=== PATIENT | male | born 1975 | race Caucasian/White ===

== ENCOUNTER 2021-07-15 09:30 | Outpatient (REF) | payer OTHER, SELFPAY ==
[2021-07-15 10:18] LABS: Hematocrit 44.9 % (42.0-52.0); Hemoglobin 14.5 g/dl (14.0-18.0); Mean Corpuscular HGB Conc 32.3 g/dl (31.0-36.0); Mean Corpuscular Hemoglobin 27.6 pg (27.0-33.0); Mean Corpuscular Volume 85.4 fL (80.0-98.0); Mean Platelet Volume 10.2 fL (9.4-12.4); Platelet Count 305 X10*3/uL (160-400); Red Blood Count 5.26 X10*6/uL (4.60-5.80); Red Cell Distribution Width 13.2 % (11.0-16.0); White Blood Count 8.5 X10*3/uL (4.8-10.8)
[2021-07-15 10:34] LABS: Estimated Average Glucose 131 mg/dL; Hemoglobin A1c % 6.2 %
[2021-07-15 10:49] LABS: Alanine Aminotransferase 57 U/L (0-40); Albumin Level 4.6 g/dL (3.5-5.0); Alkaline Phosphatase 63 U/L (39-117); Anion Gap 13 (12-20); Aspartate Amino Transferase 27 U/L (5-37); Bilirubin Direct 0.2 mg/dL (0.0-0.5); Bilirubin Total 0.5 mg/dL (0.0-1.0); Blood Urea Nitrogen 9 mg/dL (9-16); Calcium 10.2 mg/dL (8.4-10.2); Carbon Dioxide 27 mmol/L (22-29); Chloride 105 mmol/L (96-108); Estimated Glomerular Filt Rate > 60; Glucose Random 107 mg/dL (60-115); Potassium 4.7 mmol/L (3.3-5.1); Sodium 140 mmol/L (135-145); Total Protein 7.6 g/dL (6.5-8.0)
[2021-07-15 11:01] LABS: Thyroid Stimulating Hormone 0.51 uIU/mL (0.32-4.0)
== END 2021-07-15 09:31 | disposition home or self-care (01) ==
LOC: HO.LAB 09:30
PROVIDERS: PCP Internal Medicine; Visit Provider Internal Medicine
DX: B36.0 Pityriasis versicolor (principal); E78.00 Pure hypercholesterolemia, unspecified
CPT/HCPCS: 36415; 80048; 80076; 83036; 84443; 85027

== ENCOUNTER 2021-12-07 09:44 | Outpatient (REF) | payer OTHER, SELFPAY ==
[2021-12-07 10:47] LABS: Cholesterol 250 mg/dL; HDL Cholesterol 59 mg/dL; LDL Cholesterol Calculated 175 mg/dl; Triglycerides 80 mg/dL
== END 2021-12-07 09:45 | disposition home or self-care (01) ==
LOC: HO.LAB 09:44
PROVIDERS: PCP Internal Medicine; Visit Provider Internal Medicine
DX: E78.00 Pure hypercholesterolemia, unspecified (principal); B36.0 Pityriasis versicolor; B35.1 Tinea unguium
CPT/HCPCS: 36415; 80061; 87101; 87102; 87220

== ENCOUNTER 2023-08-03 10:09 | Outpatient (AMB) | payer OTHER, SELFPAY ==
--- NOTE | 2023-08-03 10:49 | MHC.PC.OV ---
Vital Signs 08/03/23 10:51 Height 5 ft 4 in Weight 170 lb 6 oz BMI 29.2 BP 126/70 Blood Pressure Location Lt brachial Position Sitting Pulse 81 Pulse Source Pulse Oximeter Pulse Oximetry (%) 97 Oxygen Delivery Method Room Air Intake Visit Reasons: annual exam Intake Note: Patient is here today for a physical. Japanese Professor Required: No Superintendent Meters: Not Required per policy Accompanied by: Self / Same As Patient Allergies No Known Allergies Allergy (Verified 08/03/23 10:51) Tobacco use date assessed: 08/03/23 Dental Screening Dental Screen Date: 08/03/23 Did you have a dental visit in the last 12 months?: Yes Did you have a dental problem in the last 6 months where you did not have access to dental care?: No Was dental information given to patient?: Patient has dentist HPI annual exam HPI Details 47-year-old male presents to the office requesting an annual physical. He has requesting a screening colonoscopy. In addition, patient is complaining of vague chest discomfort. No palpitations. Not related to exercise. He has had 1 2 such episodes. Nonsmoker. [facility] Medical History Borderline hypercholesterolemia Tinea versicolor Male pattern baldness Surgical History No history of previous surgery Family History Mother No problems noted. Father No problems noted. Maternal Uncle Colon cancer Other Mental health disorder Substance use disorder Social History Housing: Apartment Alcohol intake: former Year quit: 3 y Patient Tobacco Use Status: Former Tobacco user e-Cigarette/Vaping Use: Former Use Second Hand Smoke Exposure: Yes service: No Current occupational status: employed Cognitive needs: No Hearing needs: No Vision needs: No Questionnaire PHQ-9 Over the last 2 weeks, how often have you been bothered by any of the following problems? 1. Little interest or pleasure in doing things: not at all 2. Feeling down, depressed, or hopeless: not at all 3. Trouble falling or staying asleep, or sleeping too much: not at all 4. Feeling tired or having little energy: not at all 5. Poor appetite or overeating: not at all 6. Feeling bad about yourself - or that you are a failure or have let yourself or your family down: not at all 7. Trouble concentrating on things, such as reading the newspaper or watching television: not at all 8. Moving or speaking so slowly that other people could have noticed. Or the opposite - being so fidgety or restless that you have been moving around a lot more than usual: not at all 9. Thoughts that you would be better off or of hurting yourself in some way: not at all Total score: 0 Depression Screening Interpretation: Negative Depression Screening Done: Yes Source: Developed by Drs. Michele Nj, Sandra Olson, Jarrett Rutherford and colleagues, with an educational katelynn from [employer]. Thrive Questionnaire Date Thrive assessed: 08/03/23 I am a: Patient What is your living situation today?: I have a steady place to live Within the past 12 months, did the food you bought not last and you didn't have the money to get more?: Never true Within the past 12 months, did you worry whether your food would run out before you got money to buy more?: Never true Do you have trouble paying for medicines?: No Do you have trouble getting transportation to medical appointments?: No Do you have trouble paying your heating and electricity bill?: No Do you have trouble taking care of your child, family member or friend?: No Do you have trouble with day-to-day activities such as bathing, preparing meals, shopping, managing finances, etc.?: No Are you currently unemployed and looking for a job?: No Are you interested in more education?: No Currently or been in a relationship where the following occur: no concerns reported THRIVE Score: 0 AUDIT C Alcohol Use Questionnaire (AUDIT-C) 1. How often do you have a drink containing alcohol?: Never Total Score: 0 THERESA-7 AMB Questionnaire THERESA-7 Date THERESA - 7 assessed: 08/03/23 Feeling nervous, anxious, or on edge: 0 = Not at all Not being able to stop or control worryin = Not at all Worrying too much about different things: 0 = Not at all Trouble relaxin = Not at all Being so restless that it is hard to sit still: 0 = Not at all Becoming easily annoyed or irritable: 0 = Not at all Feeling afraid as if something awful might happen: 0 = Not at all Total THERESA-7 score (0-4 normal; 5-9 mild; 10-14 moderate; 15-21 severe): 0 Source: Developed by Drs. Michele Nj, Sandra Olson, Jarrett Rutherford and colleagues, with an educational katelynn from [employer]. Physical exam (Primary Care) Vital Signs: Last Vital Signs Pulse 81 08/03/23 10:51 BP 126/70 08/03/23 10:51 Pulse Ox 97 08/03/23 10:51 Oxygen Delivery Method Room Air 08/03/23 10:51 Care Plan Goal for BP management: Blood pressure is in range. BMI result Body Mass Index 29.2 Tobacco/Smoking Status: Tobacco use Status Tobacco use date assessed 08/03/23 08/03/23 10:57 Patient Tobacco Use Status Former Tobacco user 08/03/23 10:57 e-Cigarette/Vaping Use Former Use 08/03/23 10:57 PHQ-9: PHQ-9 Score PHQ-9: Total score 0 08/03/23 14:51 Depression Screening Interpretation: Negative Thrive Assessment: Date of Thrive Assessment Date Thrive assessed 08/03/23 08/03/23 10:57 Currently or been in a relationship where the following occur: no concerns reported Const General: cooperative and healthy appearing Nutritional Appearance: well nourished Orientation/consciousness: patient oriented x3 Limitations: no limitations HENMT Head: Yes normal to inspection Eyes General: appearance normal, both eyes and all related structures Neck Neck: Yes normal visual inspection Chest Chest palpation & inspection: normal palpation of entire chest wall Resp Effort & Inspection: normal respiratory effort Neuro General: patient oriented x3 Office Procedures EKG Details: NSR [id number], Complete Assessment and Plan Assessment & Plan (1) Annual physical exam: Code(s): Z00.00 - Encounter for general adult medical examination without abnormal findings Plan: Blood work has been ordered. A screening colonoscopy has been ordered. Will call patient with the results. (2) Atypical chest pain: Code(s): R07.89 - Other chest pain Plan: EKG reviewed with patient. Unlikely of cardiac etiology. Orders: Orders Lipid Panel 08/03/23 R07.89 - Other chest pain, Z00.00 - Encounter for general adult medical examination without abnormal findings Testosterone, Free/Total 08/03/23 R07.89 - Other chest pain, Z00.00 - Encounter for general adult medical examination without abnormal findings AMB EKG-In Office 08/03/23 R07.9 - Chest pain, unspecified Basic Metabolic Panel 08/03/23 R07.89 - Other chest pain, Z00.00 - Encounter for general adult medical examination without abnormal findings Liver Panel 08/03/23 R07.89 - Other chest pain, Z00.00 - Encounter for general adult medical examination without abnormal findings UA and rflx microscopic 08/03/23 R07.89 - Other chest pain, Z00.00 - Encounter for general adult medical examination without abnormal findings Referrals Gastroenterology Referral Z12.11 - Encounter for screening for malignant neoplasm of colon Coding Level of Care Code Est Pt Level 3 (95206) Diagnoses Annual physical exam Z00.00 Atypical chest pain R07. CPT Codes EKG - CPT: 32706-[id number], Complete ([id number])
[2023-08-03 10:51] VITALS: BP 126/70; PULSE 81; O2SAT 97; BMI 29.2
== END 2023-08-03 11:49 | disposition home or self-care (01) ==
PROVIDERS: PCP Internal Medicine; Visit Provider Internal Medicine
DX: Z00.00 Encounter for general adult medical examination without abnormal findings (principal); R07.89 Other chest pain
CPT/HCPCS: 93000; 99213; 99396

== ENCOUNTER 2023-08-03 11:53 | Outpatient (REF) | payer OTHER, SELFPAY ==
[2023-08-03 13:14] LABS: Alanine Aminotransferase 86 U/L (0-40); Albumin Level 4.6 g/dL (3.5-5.0); Alkaline Phosphatase 56 U/L (39-117); Anion Gap 10 (12-20); Aspartate Amino Transferase 46 U/L (5-37); Bilirubin Direct 0.2 mg/dL (0.0-0.5); Bilirubin Total 0.7 mg/dL (0.0-1.0); Blood Urea Nitrogen 10 mg/dL (9-16); Calcium 9.5 mg/dL (8.4-10.2); Carbon Dioxide 28 mmol/L (22-29); Chloride 103 mmol/L (96-108); Cholesterol 243 mg/dL (<200); Estimated Glomerular Filt Rate > 60; Glucose Random 123 mg/dL (60-115); HDL Cholesterol 57 mg/dL (>40); LDL Cholesterol Calculated 166 mg/dL (<100); Potassium 3.8 mmol/L (3.3-5.1); Sodium 137 mmol/L (135-145); Total Protein 8.1 g/dL (6.5-8.0); Triglycerides 101 mg/dL (<150)
[2023-08-03 14:48] LABS: Appearance Urine Clear; Color Urine Yellow; Glucose Urine UA Negative (Negative); Leukocyte Esterase Urine Negative (Negative); Nitrite Urine Negative (Negative); Urine Blood Negative (Negative); Urine Ketones Negative (Negative); Urine Protein Negative (Neg-Trace)
[2023-08-17 15:18] LABS: Testosterone, Free 65.5 pg/mL (35.0-155.0); Testosterone, Total 458 ng/dL (250-1100)
== END 2023-08-03 11:54 | disposition home or self-care (01) ==
LOC: HO.LAB 11:53
PROVIDERS: PCP Internal Medicine; Visit Provider Internal Medicine
DX: Z00.00 Encounter for general adult medical examination without abnormal findings (principal); R07.89 Other chest pain
CPT/HCPCS: 36415; 80048; 80061; 80076; 81003; 84402; 84403

== ENCOUNTER 2023-11-29 09:51 | Outpatient (AMB) | payer OTHER, SELFPAY ==
[2023-11-29 09:56] VITALS: BP 122/84; PULSE 80; O2SAT 99; BMI 29.2
--- NOTE | 2023-11-29 09:56 | A.OFFVIS_ITS ---
Vital Signs 11/29/23 09:56 Height 5 ft 4 in Weight 170 lb 3.15 oz BMI 29.2 BP 122/84 Blood Pressure Location Rt brachial Position Sitting Pulse 80 Pulse Source Pulse Oximeter Pulse Oximetry (%) 99 Oxygen Delivery Method Room Air Intake Visit Reasons: Colonoscopy Screening Intake Note: Doc presents in office today for a scheduled colo consult. CC; Pt does have pertinent fmhx. Pt requested this colo based off of this. PCP recently ordered labs for this pt. This will be the pt's initial colo with routine priority. Pt reports that they have been experiencing new onset of GERD sx over the last ~4-5 mos. Pt also reports hx of diverticulosis. Pt reports that they had been taking atorvastatin as per their PCP, however; they recently stopped taking the medication as they heard that reflux can be a potential s/e. Pt has noticed that their sx have improved since the medication was dc'd. Pt reports family hx -- Uncle (Maternal). Shellfish Checker Required: No Allergies No Known Allergies Allergy (Verified 11/29/23 09:57) HPI HPI Colonoscopy Screening: Details: 48 year old? male here today for pre colonoscopy screening.? Patient was sent to us by his PCP.? This is his first colonoscopy screening.? Maternal uncle was diagnosed with colorectal cancer in his early 60s. Patient denies any gastrointestinal symptoms in the past or at present, however patient reports epigastric pain postprandially. ? Denies history of difficulty with sedation or anesthesia in the past.? Negative for history of sleep apnea.? Denies any history of cardiac, renal, pulmonary, or hepatic disease.?? No history of infectious? diseases like hepatitis A, B, C, HIV or tuberculosis.? Patient is not on any anticoagulation [facility] Medical History Borderline hypercholesterolemia Tinea versicolor Male pattern baldness Surgical History No history of previous surgery Family History Mother No problems noted. Father No problems noted. Maternal Uncle Colon cancer Other Mental health disorder Substance use disorder Social History Housing: Apartment Alcohol intake: former Year quit: 3 y Patient Tobacco Use Status: Former Tobacco user e-Cigarette/Vaping Use: Former Use Second Hand Smoke Exposure: Yes service: No Current occupational status: employed Cognitive needs: No Hearing needs: No Vision needs: No Review of Systems Const Denies weight gain and Denies weight loss ENT Reports no additional complaints, Denies dysphagia and Denies odynophagia Card Reports no additional complaints Resp Reports no additional complaints GI Denies abdominal pain, Denies belching, Denies melena, Denies bloating, Denies change in bowel habits, Denies dysphagia, Denies excessive flatus, Denies dyspepsia, Denies heartburn, Denies diarrhea, Denies loose stools, Denies nausea, Denies odynophagia and Denies vomiting Reports no additional complaints Musc Reports no additional complaints Neuro Reports no additional complaints Psych Reports no additional complaints Endo Reports no additional complaints Physical Exam Const General: healthy appearing, no acute distress and well developed Nutritional Appearance: well nourished Orientation/consciousness: patient oriented x3 Resp Effort & Inspection: normal respiratory effort, able to speak in complete sentences, no tracheal deviation and symmetric chest movement Auscultation: clear to auscultation bilaterally Cardio Rate: regular rate GI Inspection: Yes normal to inspection and No distended Palpation (GI): Soft to palpation, not firm, nontender and No hepatosplenomegaly present Auscultation: normal bowel sounds General: Yes no CVA tenderness Back/Spine/Pelvis Back: no CVA tenderness Skin General skin exam: elasticity normal, turgor normal and dry skin Neuro General: patient oriented x3 Psych Appearance: grossly normal Mental Status: mental status grossly normal Results Reviewed Results Reviewed: Laboratory Tests 08/03/23 12:18 Direct Bilirubin 0.2 AST 46 H ALT 86 H Assessment & Plan Assessment & Plan (1) Screen for colon cancer: Code(s): Z12.11 - Encounter for screening for malignant neoplasm of colon (2) GERD (gastroesophageal reflux disease): Code(s): K21.9 - Gastro-esophageal reflux disease without esophagitis Qualifiers: Esophagitis presence: esophagitis presence not specified Qualified Code(s): K21.9 - Gastro-esophageal reflux disease without esophagitis Plan Patient denies any cardiac or respiratory symptoms.? Denies any issues with anesthesia in the past.? Denies any history of sleep apnea.? No history infectious diseases in the past or present.? Not on any anticoagulation therapy.? Family history of CRC. Patient reports epigastric pain postprandially, currently not on any PPI. Will send him for upper endoscopy to rule out gastritis, esophagitis, duodenitis, gastric or peptic ulcers, Leblanc's, H pylori.? Patient denies melena, hematochezia, unintentional weight loss or ribbon like stools.? Discussed at length the pre-procedure,? prep, diet & medications as well as what to expect prior, during and after the procedure.?? Stressed the importance of good bowel prep.? Recommended the use of Vaseline or Calmoseptine OTC & baby wipes with bowel movements to promote comfort.? ?Patient verbalizes understanding and agrees to plan of care.? He was given the opportunity to ask questions and all questions answered.? We will see him after the procedure.? Medications: New polyethylene glycol 3350 (Miralax) As directed by gastroenterology department at [facility] 238 grams PO ONCE 238 grams 0RF Z12.11 - Encounter for screening for malignant neoplasm of colon bisacodyl (Dulcolax (bisacodyl)) take 4 tabs at noon the day before your colonoscopy 20 mg (4 x 5 mg) PO ONCE 1 day 4 tabs 0RF Z12.11 - Encounter for screening for malignant neoplasm of colon Coding Level of Care Code New Pt Level 3 (29676) Diagnoses Screen for colon cancer Z12.11 Gastroesophageal reflux disease, unspecified whether esophagitis present K21.9 Esophagitis presence: esophagitis presence not specified Time Spent (min) 40 Comment 30 minutes spent with patient and additional 10 minutes spent reviewing his records
== END 2023-11-29 10:34 | disposition home or self-care (01) ==
PROVIDERS: PCP Internal Medicine; Visit Provider Nurse Practitioner Family
DX: K21.9 Gastro-esophageal reflux disease without esophagitis (principal); Z12.11 Encounter for screening for malignant neoplasm of colon
CPT/HCPCS: 99203

== ENCOUNTER → 2023-11-29 09:51 | Outpatient (BNVA) | payer OTHER, SELFPAY | PROVIDERS: PCP Internal Medicine; Visit Provider Nurse Practitioner Family ==

== ENCOUNTER 2024-02-07 10:04 | Outpatient (AMB) | payer OTHER, SELFPAY ==
[2024-02-07 10:11] VITALS: BP 142/90; PULSE 77; O2SAT 99; BMI 28.0
--- NOTE | 2024-02-07 10:11 | A.OFFPC_ITS ---
Vital Signs 02/07/24 10:11 Height 5 ft 4 in Weight 163 lb BMI 28.0 BP 142/90 H Blood Pressure Location Lt brachial Position Sitting Pulse 77 Pulse Source Pulse Oximeter Pulse Oximetry (%) 99 Oxygen Delivery Method Room Air Intake Visit Reasons: 6mof\u Intake Note: Patient here for a 6 month follow up Unit Supervisor Required: No Accompanied by: Self / Same As Patient Allergies No Known Allergies Allergy (Verified 02/07/24 10:17) Medication List - Last Reconciled 02/07/24 by Casey Marroquin MD atorvastatin 10 mg PO BEDTIME bisacodyl (Dulcolax (bisacodyl)) 20 mg (4 x 5 mg) PO ONCE 1 day polyethylene glycol 3350 (Miralax) 238 grams PO ONCE Tobacco use date assessed: 08/03/23 Dental Screening Dental Screen Date: 08/03/23 [facility] Medical History (Updated 02/07/24 @ 10:35 by Casey Marroquin MD) GERD (gastroesophageal reflux disease) Borderline hypercholesterolemia Tinea versicolor Male pattern baldness Surgical History [place] teeth extracted No history of previous surgery Family History Mother No problems noted. Father No problems noted. Maternal Uncle Colon cancer Other Mental health disorder Substance use disorder Social History Housing: Apartment Alcohol intake: former Year quit: 3 y Patient Tobacco Use Status: Former Tobacco user e-Cigarette/Vaping Use: Former Use Second Hand Smoke Exposure: Yes service: No Current occupational status: employed Current occupational exposures/hazards: No Cognitive needs: No Hearing needs: No Vision needs: No Questionnaire Thrive Questionnaire Date Thrive assessed: 08/03/23 AUDIT C Alcohol Use Questionnaire (AUDIT-C) 3. How often do you have six or more drinks on one occasion?: Never Total Score: 0 THERESA-7 AMB Questionnaire THERESA-7 Date THERESA - 7 assessed: 08/03/23 Source: Developed by Drs. Michele Nj, Sandra Olson, Jarrett Rutherford and colleagues, with an educational katelynn from [employer]. Physical exam (Primary Care) Vital Signs: Last Vital Signs Pulse 77 02/07/24 10:11 BP 142/90 H 02/07/24 10:11 Pulse Ox 99 02/07/24 10:11 Oxygen Delivery Method Room Air 02/07/24 10:11 BMI result Body Mass Index 28.0 Tobacco/Smoking Status: Tobacco use Status Tobacco use date assessed 08/03/23 02/07/24 10:17 Patient Tobacco Use Status Former Tobacco user 02/07/24 10:17 e-Cigarette/Vaping Use Former Use 02/07/24 10:17 Thrive Assessment: Date of Thrive Assessment Date Thrive assessed 08/03/23 02/07/24 10:17 Office Procedures Flu Questionnaire Does the patient have a severe egg allergy?: No Does the patient have severe life threatening allergies?: No Does the patient have a fever or illness today?: No Has the patient ever had Guillain-[place] Syndrome?: No Has the patient ever had any past reaction to a flu shot?: No Immunizations Fluarix Triv 3503-3317 (PF) 45 mcg (15 mcg x 3)/0.5 mL IM syringe Performing Provider: Casey Marroquin MD [facility] Administered by: LOUISA Corrales on 02/07/24 10:36 Dose Route Admin Location Dispensed Lot Number Expiration Date [facility] Pot Annealer 0.5 mL IM Left Deltoid 0.5 mL [id number] 08/19/24 51276-726-20 [employer] VIS Given Date VIS Provided VIS Publication Date 02/07/24 Single Vaccine 20 Eligibility Eligibility Date Funding Source Not [facility] Eligible 02/07/24 Private Coding Level of Care Code Est Pt Level 4 (49745) Complex EM visit Add On G2211 Diagnoses Borderline hypercholesterolemia E78.00 Onychomycosis B35.1 GERD (gastroesophageal reflux disease) K21.9 Assessment & Plan Assessment & Plan (1) Borderline hypercholesterolemia: Code(s): E78.00 - Pure hypercholesterolemia, unspecified Category: Medical Plan: Restart statins. Rpt fasting bw in March 2023. (2) Onychomycosis: Code(s): B35.1 - Tinea unguium Category: Medical Plan: No obvious evidence. Patient reports rptd toenail infection and would like to see a superintendent police (3) GERD (gastroesophageal reflux disease): Code(s): K21.9 - Gastro-esophageal reflux disease without esophagitis Category: Medical Plan: Pantoprazole started. Keep the endoscopy appt Plan History of Present Illness The patient is a 48-year-old male presenting with gastrointestinal reflux symptoms. The patient reports a longstanding history of stomach problems with an increase in reflux symptoms recently. He is scheduled for a procedure in April 2024, which includes a colonoscopy and upper endoscopy. The patient has not been taking any medication specifically for the stomach and reports stopping his cholesterol medication after suspecting it contributed to reflux symptoms. His cholesterol levels and liver function have previously shown improvement with medication, but he experienced a return of high cholesterol levels since discontinuation. The patient's reflux symptoms have persisted, affecting his general well-being. Additionally, he reports toenail infections on both big toes, previously resulting in nail loss, with one toe showing signs of infection. Social History - Employment: Works long hours, including up to 16-hour shifts, at a [employer]. - Family: Parent of children aged 25, 17, and 16; plans a family trip to [place]. Expecting a child soon. - Lifestyle: Reports poor sleep habits and feeling overworked. Review of Systems - General: Reports feeling generally unwell. - Musculoskeletal: Reports toe infections. Physical Exam General: Cooperative and healthy appearing Nutritional Appearance: Well nourished Orientation/consciousness: Patient oriented x3 Limitations: No limitations Head: Normal to inspection General: Appearance normal, both eyes and all related structures Neck: Normal visual inspection Chest: Normal palpation of entire chest wall Respiratory: Normal respiratory effort Neurology: Patient oriented x3 Toe nails: Bilateral feet: Great toe on both feet shows some discoloration. No evidence of Paronychia. Results Plan - Restart atorvastatin for management of hyperlipidemia, and schedule repeat blood work in March to monitor cholesterol levels. - Prescribe pantoprazole for management of gastroesophageal reflux disease, with instructions to take once daily with food. - Referral to a superintendent police for evaluation and management of toenail infections. - Encourage improved sleep hygiene and work-life balance to potentially relieve stress-related symptoms. Patient was informed and verbally consented to the use of an ambient scribe for clinic note documentation during this visit. Discussion Notes During the visit, I discussed the patient's experience with reflux and the impact of discontinuing his cholesterol medication. I emphasized restarting the cholesterol medication and introduced pantoprazole to manage the reflux symptoms. I elaborated on the importance of monitoring cholesterol and liver function through upcoming blood work in March. We also reviewed the need for a superintendent police consultation to address ongoing nail infections, which have res ulted in significant toenail loss. I highlighted the importance of sleep and managing work-related stress to improve overall health. I acknowledged his upcoming family trip as a positive opportunity for relaxation. Follow-up consultations and management strategies were outlined. Patient Instructions - Take the prescribed omeprazole daily with food to alleviate stomach reflux symptoms. - Restart your cholesterol medication in the evening as directed. - Schedule and attend a superintendent police appointment for your toenail infections. - Obtain blood work in March to re-evaluate cholesterol levels. - Aim to improve sleep habits and balance work hours to promote better health. - Attend to symptoms or concerns promptly during your family trip if necessary.
== END 2024-02-07 10:31 | disposition home or self-care (01) ==
PROVIDERS: PCP Internal Medicine; Visit Provider Internal Medicine
DX: E78.00 Pure hypercholesterolemia, unspecified (principal); B35.1 Tinea unguium; K21.9 Gastro-esophageal reflux disease without esophagitis; Z23 Encounter for immunization

== ENCOUNTER → 2024-02-07 10:04 | Outpatient (BNVA) | payer OTHER, SELFPAY | PROVIDERS: PCP Internal Medicine; Visit Provider Internal Medicine | DX: E78.00 Pure hypercholesterolemia, unspecified (principal); B35.1 Tinea unguium; K21.9 Gastro-esophageal reflux disease without esophagitis; Z23 Encounter for immunization | CPT/HCPCS: 90471; 90656 ==

== ENCOUNTER 2024-02-08 09:07 | Outpatient (AMB) | payer OTHER, SELFPAY ==
--- NOTE | 2024-02-08 09:19 | AM.OFFVISNUR ---
Intake Visit Reasons: tdap Allergies No Known Allergies Allergy (Verified 02/07/24 10:17) Immunizations Boostrix Tdap 2.5 Lf unit-8 mcg-5 Lf/0.5 mL intramuscular syringe Performing Provider: Casey Marroquin MD [facility] Administered by: Pilar Rodriguez LPN on 02/08/24 09:19 Dose Route Admin Location Dispensed Lot Number Expiration Date [facility] Label Tacker 0.5 mL IM Right Deltoid 0.5 mL [id number] 03/16/26 [id number] Sign[employer]at VIS Given Date VIS Provided VIS Publication Date 02/08/24 Single Vaccine 20 Eligibility Eligibility Date Funding Source Not [facility] Eligible 02/08/24 Private Assessment & Plan Assessment & Plan Orders: Orders TDaP Immunization Today Z23 - Encounter for immunization Medications: New Boostrix Tdap (diphth,pertus(acell),tetanus) 0.5 mL IM ONCE 0.5 mL 0RF immunization due NS Z23 - Encounter for immunization
== END 2024-02-08 09:20 | disposition home or self-care (01) ==
PROVIDERS: PCP Internal Medicine; Visit Provider Internal Medicine
DX: Z23 Encounter for immunization (principal)

== ENCOUNTER → 2024-02-08 09:07 | Outpatient (BNVA) | payer OTHER, SELFPAY | PROVIDERS: PCP Internal Medicine; Visit Provider Internal Medicine | DX: Z23 Encounter for immunization (principal) | CPT/HCPCS: 90471; 90715 ==

== ENCOUNTER 2024-04-29 11:22 | Day surgery (SDC) | payer OTHER, SELFPAY ==
--- NOTE | 2024-04-26 13:12 | HO.ANESPROP2 ---
Documented by User: Mary Jane Da Silva NP 04/26/24 13:13 HPI - Anesthesia Eval Consult details Narrative: 48yo M for Colonoscopy PMFSH Active Problems Active Problems: All Active Problems GERD (gastroesophageal reflux disease) (Acute) Annual physical exam (Acute) Cystic acne vulgaris (Acute) Onychomycosis (Acute) Borderline hypercholesterolemia (Acute) Tinea versicolor (Acute) Male pattern baldness (Acute) Past Medical History Medical History GERD (gastroesophageal reflux disease) Borderline hypercholesterolemia Tinea versicolor Male pattern baldness Family History Family History Mother No problems noted. Father No problems noted. Maternal Uncle Colon cancer Other Mental health disorder Substance use disorder Surgical History Surgical History [place] teeth extracted Social History Social History Housing: Apartment Are you a primary home care specialist to a significant other at home: No Do you presently have visiting nurse or other home services: No Alcohol intake: former Year quit: 3 y Patient Tobacco Use Status: Current everyday Tobacco user Tobacco use type: Smokeless Tobacco e-Cigarette/Vaping Use: Former Use Second Hand Smoke Exposure: Yes Substance Use Frequency: Occasionally Have you been hit, kicked, punched, or otherwise hurt by someone within the past year? If so, by whom?: No Are you DNR?: No Advance Directives: No Advance Directives Information Provided: Yes Recently lost weight without trying: No Nutrition Risks: No Nutritional Risk Poor oral hygiene: No service: No Current occupational status: employed Current occupational exposures/hazards: No Cognitive needs: No Hearing needs: No Vision needs: No Meds Allergies Allergy/AdvReac Type Severity Reaction Status Date / Time No Known Allergies Allergy Verified 04/29/24 11:31 Assessment and Plan Assessment Anesthesia Assessment: Chart Reviewed Documented by User: Елена So MD 04/29/24 13:23 COUNT INCLUDES THE [facility] Past Medical History Medical History GERD (gastroesophageal reflux disease) Borderline hypercholesterolemia Tinea versicolor Male pattern baldness Family History Family History Mother No problems noted. Father No problems noted. Maternal Uncle Colon cancer Other Mental health disorder Substance use disorder Surgical History Surgical History [place] teeth extracted History of Problems with Anesthesia: No Social History Social History Housing: Apartment Are you a primary home care specialist to a significant other at home: No Do you presently have visiting nurse or other home services: No Alcohol intake: former Year quit: 3 y Patient Tobacco Use Status: Current everyday Tobacco user Tobacco use type: Smokeless Tobacco e-Cigarette/Vaping Use: Former Use Second Hand Smoke Exposure: Yes Substance Use Frequency: Occasionally Have you been hit, kicked, punched, or otherwise hurt by someone within the past year? If so, by whom?: No Are you DNR?: No Advance Directives: No Advance Directives Information Provided: Yes Recently lost weight without trying: No Nutrition Risks: No Nutritional Risk Poor oral hygiene: No service: No Current occupational status: employed Current occupational exposures/hazards: No Cognitive needs: No Hearing needs: No Vision needs: No Meds Allergies Allergy/AdvReac Type Severity Reaction Status Date / Time No Known Allergies Allergy Verified 04/29/24 11:31 Exam Airway Mallampati Class: II TM Dist: >3cm Neck ROM: Full Loose/Missing/Broken Teeth: No Heart: RRR Lungs: CTA Assessment and Plan Assessment Anesthesia Assessment: Anesthesia Plan Discussed Final Anesthetic Review History of Problems with Anesthesia: No NPO: Yes ASA Class: II Final Preanesthetic Review: Meds/Allgs Chart Reviewed, Consent Obtained/Reviewed and Anes Risks/Benef Reviewed Patient Risk: Low Procedure Risk: Low Anesthetic Plan Anesthetic Plan: MAC: Disposition: Standard PACU
--- OUTSIDE RECORDS SUMMARY | 2024-04-26 14:44 | XMS_ITS | Data Portability ---
Author Organization [facility], [address] Address [address] [place] [address] Assessment No assessment recorded. Plan of Treatment Reminders Order Date Submit Date Provider Last Modified By Organization Details Last Modified Time Details Appointments None recorded. Lab rapid SARS CoV 2 Ag, QL IA, respiratory specimen 2022 [email or web address] [place] [address], [address] [place] [address], [id number], 3 11:48:05 Referral None recorded. Procedures None recorded. Surgeries None recorded. Imaging None recorded. Medication Orders None recorded. Patient TargetsNo targets recorded. Patient Instructions Encounter Date Encounter Id Patient Instructions Last Modified By Organization Details Last Modified Time 03/29/2022 [id number] You have been Diagnosed with COVID - your Rapid COVID test was positive. I recommend the following to help with your symptoms of this viral infection: 1. Take Ibuprofen or Tylenol if you do not have any allergies to these medications. If you take a blood thinner you should not take NSAIDS like Ibuprofen. These medication will help with the inflammation in your respiratory tract which should help the cough. 2. I suggest taking a Antihistamine (loratadine or cetirizine or Constanza or benadryl) - to help with the congestion. I would advise this over a decongestant. 3. Saline Nasal [place] 4. Salt Water Gargles. I would be seen again immediately in the Emergency Room if you develop: 1. Shortness of Breath 2. Chest Pain 3. Fever > 101.0 4. Lethargy or Confusion. You should notify you PCP that you have been diagnosed with this infection. Below is the current CDC guidelines. Updated CDC Guidelines for Quarantine and Testing - 02/27/2021 If You Test Positive for COVID-19 (Isolate) Everyone, regardless of vaccination status. 1. Stay home for 5 days. 2. If you have no symptoms or your symptoms are resolving after 5 days, you can leave your house. 3. Continue to wear a mask around others for 5 additional days. If you have a fever or feel worse, continue to stay home until your fever resolves. If You Were Exposed to Someone with COVID-19 (Quarantine) If you: Have been boosted OR Completed the primary series of Pfizer or Moderna vaccine within the last 6 months. OR Completed the primary series of J&J vaccine within the last 2 months 1. Wear a mask around others for 10 days. 2. Test on day 5, if possible. 3. If you develop symptoms get a test and stay home. If you: Completed the primary series of Pfizer or Moderna vaccine over 6 months ago and are not boosted OR Completed the primary series of J&J over 2 months ago and are not boosted OR Are un-vaccinated 1. Stay home for 5 days. After that continue to wear a mask around others for 5 additional days. 2. Test on day 5, if possible. If you develop symptoms get a test and stay home Quarantine Calculation: Day 0: is the first day of symptoms or a positive viral test. Day 1: is the first full day after your symptoms developed or when your test specimen was collected. Exposure: Day 1: is the first full day after your last known contact with a person that tested positive for COVID 19. [facility] Thank you for visiting [facility] today, please feel free to call our office you have any questions or concerns. [email or web address] Not available 03/29/2022 11:48:00 Reason for Referral None Reported. Results Created Date Observation Date Name Description Value Unit Range Abnormal Flag Note LastModifiedBy Organization Detail LastModifiedTime Result Notes None recorded. Problems Name Problem SNOMED Code Status Onset Date Resolution Date Notes Provider Name and Address Organization Details Recorded Time Hyperlipidemia 41049982 Active 2022 [facility] 3 11:43:27 Asthma 538329471 Active 2022 [facility] 3 11:43:32 Problem Notes None recorded. Procedures Surgical History Date Name Laterality Status Provider Name and Address Organization Details Recorded Time extraction of wisdom tooth completed [facility] 03/29/2022 11:44:16 Imaging Results None recorded. Procedure Notes None recorded. Medical Equipment None Reported. Allergies No known drug allergies Medications Name Sig Start Date Stop Date Status Note LastModified by Organization Details LastModified Time doxycycline hyclate 100 mg capsule TAKE 1 CAPSULE BY MOUTH EVERY DAY active Not Available Not Available No t Available atorvastati n 10 mg tablet TAKE 1 TABLET BY MOUTH EVERY DAY AT BEDTIME active Not Available Not Available No t Available fluconazole 150 mg tablet TAKE 2 TABLETS BY MOUTH EVERY WEEK FOR 2 WEEKS 03/29 completed Not Available Not Available Not Available ketoconazol e 2 % topical cream APPLY TO AFFECTED AREA TWICE A DAY active Not Available Not Available No t Available finasteride 1 mg tablet TAKE 1 TABLET BY MOUTH EVERY DAY active Not Available Not Available No t Available Vitals Date Recorded Body height Body mass index (BMI) Body weight Pain severity - 0-10 verbal numeric rating [Score] - Reported Oxygen saturation Oxygen saturation in Arterial blood by Pulse oximetry Heart rate Respiratory rate Body temperature Systolic blood pressure Diastolic blood pressure Provider Name and Address Organization Details Last Updated DateTime 3 162.56 cm 26.6 kg/m2 34097.8 2 g 0 99 % 99 % 90 /min 18 /min 98.5 [degF] 127 mm[Hg] 82 mm[Hg] [facility] 3 11:42:24 Social History Question Answer Notes LastModified by Organizat ion Details LastModified Time Tobacco Smoking Status Former Smoker [facility] 03/29/2022 11:44:03 What Is Your Level Of Alcohol Consumption? None Information not available 03/29/2022 Do You Or Have You Ever Used E-cigarettes Or Vape? Current User Of Electronic Cigarettes Information not available 03/29/2022 Do You Use Any Illicit Or Recreational Drugs? No [email or web address] Information not available 03/29/2022 Have You Recently Traveled Abroad? No Information not available 03/29/2022 Do You Or Have You Ever Used Any Other Forms Of Tobacco Or Nicotine? Yes [email or web address] Information not available 03/29/2022 Sex: Unknown Functional Status None recorded. Mental Status None recorded. Family History Relationship Description Onset Age of this Age Resolved Age Notes LastModified by Organization Details LastModified Time Father No current problems or disability [email or web address] Not available 03/29 11:43:37 Mother No current problems or disability [email or web address] Not available 03/29 11:43:37 Medical History No medical history recorded. Past Encounters Encounter ID Performer Location Encounter Start Date Encounter Closed Date Diagnosis/Indication Diagnosis SNOMED-CT Code Diagnosis ICD10 Code Diagnosis Note [id number] [address] [place] [address] 04/29/2015 17:30:19 04/29/2015 18:43:52 [id number] [address] [place] [address] 03/21/2015 19:49:48 03/21/2015 20:06:19 [id number] [address] [place] [address] 07/06/2016 14:12:16 07/06/2016 15:18:51 [id number] REN[facility] MORENO [address] [place] [address] 03/29/2022 11:08:19 03/29/2022 11:59:32 COVID-19 097254382 U07.1 Health Concerns Section Related Observation LastModified by Organization Detai ls LastModified Time None Recorded Concern Status LastModified by Organization Details LastModified Time None Recorded Advance Directives Directive None Recorded Payers Encounter Date Sequence Insurance Name Policy Number Policy Grace Covered Member ID Grace Member ID Guarantor Name 07/06/2016 1 [employer] (POS) [id number] Doc Quintanilla [id number] 2 Doc Quintanilla 03/29/2022 1 [facility] [id number] [place] [id number] [place] Notes Date Note Type Note Provider Name and Address Organization Details Recorded Time 3 text/html Sore throatReported bypatient.Source of patient informationInformation obtained from patient; Patient arrived at Urgent Care ambulatory Location:throat Severity:moderate Quality:hurts to swallow Onset/Timin days Associated Symptoms:no sputum production; no shortness of breath; no wheezing; no vomiting; no nausea; No hoarseness;sore throat;coughing;sinus pain/ congestion Context:sick contactNotes:The patient reports felt something come on yesterday, but today woke up and felt worse. The patient reports that he did take a home covid test and it was positive. Here for evaluation. History of asthma but he said it never bothers him. He denies any sOB or CP. No history of COVID. Vaccinated. [facility] [place], [address], [place] - [facility] 03/29/2022 11:58:00
--- OUTSIDE RECORDS SUMMARY | 2024-04-26 14:44 | XMS_ITS | Continuity of Care Document ---
Author Organization [facility] Address [address] [place] [address] Phone Care Team Providers Care Photoengraving Supervisor Name Role Phone Archie Rosangela GARCIA Unavailable Unavailable Allergies, Adverse Reactions, Alerts Substance Reaction Status Criticality No Known Allergies Active No Inform ation Advance Directives Directive Yes / No Effective Date File Name No Information Encounters Encounter Description Practice Location Reason(s) For Visit Diagnoses Date Provider [facility], [address] [place] [address], [address] [place] [address] tel:[phone] [address] No Information 2019 Archie Adames. [address] [place] [address], [id number], . tel:[phone] [facility], [address] [place] [address], [address] [place] [address] tel:[phone] 2019 Archie Adames. [address] [place] [address], [id number], . tel:[phone] As per patient privacy policy some of the clinical information may not be visible. Family History Family Member Type Diagnosis Age At Onset No Information Payers Payer name Insurance type Covered libertarian ID Authoriza tion(s) [employer] PPO/AOP CI [id number] Social History Type Description Quantity Date Captured Comments Sex Male Smoking Status No Information Sexual Orientation Straight or heterosexual Gender Identity Male Chief Complaint And Reason For Visit No Information History Of Present Illness Encounter Date Complaint History Of Prese nt Illness No Information Instructions Date Instruction Additional Infor mation No Information Assessments Type Assessment Date No Information
[2024-04-29 11:57] VITALS: BMI 28.1
[2024-04-29] MEDS: Lactated Ringers 1,000 ML 100 ML IVCONT (12:03)
[2024-04-29 12:09] VITALS: BP 131/82; PULSE 99; RESP 18; TEMP 36.7; O2SAT 96
--- NOTE | 2024-04-29 13:36 | MHC.SHP ---
Pre-Procedural Eval Section A - 24 Hr Update-Section A only Date of Service: 04/29/24 The patient is an INPATIENT: No The patient has been examined within 24 hours of the surgical procedure. The History & Physical has been completed within 30 days and I have reviewed it.: No Section B - Complete if H&P > 30 days Chief Complaint: Colon cancer screening Relevant Family History (Specify if Yes): Yes Relevant Social History: Tobacco Use (Former smoker) Present Medications: see Short Stay Collaborative assessment Medical History: Significant History (Borderline hypercholesterolemia Tinea versicolor Male pattern baldness) History of Previous Operations: No relevant previous surgery Allergies: Allergies Allergy/AdvReac Type Severity Reaction Status Date / Time No Known Allergies Allergy Verified 04/29/24 11:31 Review of Systems Sugical H&P ROS: Negative: Constitution, Cardiovascular, Respiratory and Gastrointestinal Exam Surgical H&P Exam: Normal: Heart, Normal: Lungs, Normal: Extremities and Normal: Abdomen Plan Diagnosis/Plan: Unchanged I have reviewed the history and physical and performed a pertinent physical examination on my patient. No changes have occurred unless specified. Time Spent With Patient Time: Total time managing care of this patient today ____ minutes.
--- NOTE | 2024-04-29 13:43 | HO.OPN-COLON ---
Colonoscopy Operative Note Operative Note Date of Service: 04/29/24 Narrative: COLONOSCOPY TILL CECUM WITH BIOPSIES AND SNARE POLYPECTOMY Pre-op diagnosis: Colon cancer screening, intermittent rectal bleeding x 4 months. Maternal uncle was diagnosed with colorectal cancer in his early 60s. Post-op diagnosis:?Colon polyp , Diverticulosis, hemorrhoids Endoscopist:? Tish Robison MD Anesthesia:?MAC Consent: Indications for the procedure and potential complications of bleeding, perforation, reaction to medications and missed diagnosis were discussed with the patient and informed consent was obtained. Instrument: Olympus CF H 190 L variable stiffness adult colonoscope Monitoring: Vital signs and clinical assessment, intermittent blood pressure monitoring, continuous EKG monitoring, Pulse oximetry and Carbon Dioxide monitoring were done throughout the procedure. Please see anesthesia flowsheet. Colon withdrawl time was 18 minutes. Procedure: The patient was placed in the left lateral decubitis position and pre-procedure medications were administered. After a digital rectal examination of the ano-rectum, the video colonoscope was inserted into the rectum and advanced through the colon to the cecum. The colonoscope was slowly withdrawn in a retrograde panoramic fashion and the colon mucosa was carefully examined including a retroflexed view of the rectum. Findings and interventions are described below. Procedure Difficulty: without difficulty Findings: Terminal Ileum: Not evaluated Cecum: Normal Ascending Colon: Moderate diverticulosis throughout the entire colon Transverse Colon: Moderate diverticulosis throughout the entire colon Descending Colon: Moderate diverticulosis throughout the entire colon Sigmoid Colon: A 7-8 mm sessile polyp in the distal sigmoid colon - removed with a hot snare. A focal area of erythema, edema and aphthoid ulcers from 20 to 30 cms (in an area of severe diverticulosis) - multiple biopsies were obtained. Severe diverticulosis with luminal narrowing Rectum: Normal Ano-rectum: Moderate internal hemorrhoids Colon preparation: Good after copious irrigation. [place] Bowel Preparation Scale Right colon; 2 Transverse colon: 2 Left colon; 2 (0 = Unprepared colon segment with mucosa not seen due to solid stool that cannot be cleared. 1 = Portion of mucosa of the colon segment seen, but other areas of the colon segment not well seen due to staining, residual stool and/or opaque liquid. 2 = Minor amount of residual staining, small fragments of stool and/or opaque liquid, but mucosa of colon segment seen well. 3 = Entire mucosa of colon segment seen well with no residual staining, small fragments of stool or opaque liquid) Impression and Post Procedure Diagnosis: Colonoscopy Findings: One small polyp was removed Moderate to severe diverticulosis seen in the entire colon Moderate hemorrhoids on retroflexed exam. A focal area of erythema, edema and aphthoid ulcers from 20 to 30 cms (in an area of severe diverticulosis) - likely due to segmental colitis associated with diverticulosis (SCAD) versus IBD (less likely) Rectal bleeding likely from area of focal colitis Plan: Pt has a FU appointment on 05/13/24 with Darby Chase NP Repeat Colonoscopy in 5 years if polyps are adenomatous and due to family history of colon cancer. Above findings were reviewed with the patient and relevant handouts were given and the discharge area. Pt reports intermittent episodes of LLQ pain suggestive of recurrent diverticulitis. ADDENDUM: BIOPSIES SHOWED: A. Colon, sigmoid, biopsy: Active colitis with moderate activity and features of early evolving chronicity (see comment). B. Colon, sigmoid, polypectomy: Tubular adenoma; negative for high-grade dysplasia. COMMENT (A): No granulomas are identified. The differential diagnosis includes diverticular disease - associated segmental colitis (favored), infection, drug/medication effect and early idiopathic inflammatory bowel disease. Note is made of the patient's history of severe diverticulitis. Clinical correlation is advised Pt informed of biopsy results and prescribed Cirpofloxaxin and Metronidazole x 14 days for segmental colitis If pt continues to have rectal bleeding, consider further evaluation with CBC, CRP, IBD serologies and an Abd-Pelvic CT scan with IV and PO contrast to evaluate area of colitis. If CT scan shows persistent inflammation/pt remains symptomatic, he can be treated with mesalamine truck terminal manager. If he continues to have recurrent diverticulitis, he can be referred to surgery for a sigmoid colectomy Patient placed on the colonoscopy recall list for repeat colonoscopy in 5 years.
[2024-04-29 14:22] VITALS: BP 95/63; PULSE 79; RESP 16; TEMP 36.3; O2SAT 99
[2024-04-29 14:35] VITALS: BP 116/78; PULSE 82; RESP 16; O2SAT 100
== END 2024-04-29 15:06 | disposition home or self-care (01) ==
PROVIDERS: PCP Internal Medicine; Visit Provider Internal Medicine Gastroenterology
PROC: 0DJD8ZZ Inspection of Lower Intestinal Tract, Via Natural or Artificial Opening Endoscopic (ICD-10-PCS; CPT 45378; principal; 2024-04-29 13:50)
DX: K62.5 Hemorrhage of anus and rectum (principal); D12.5 Benign neoplasm of sigmoid colon; K57.30 Diverticulosis of large intestine without perforation or abscess without bleeding; K64.8 Other hemorrhoids; K51.20 Ulcerative (chronic) proctitis without complications; B36.0 Pityriasis versicolor; L64.9 Androgenic alopecia, unspecified; Z79.899 Other long term (current) drug therapy
CPT/HCPCS: 45385; 45380; 88305; J2704

== ENCOUNTER → 2024-04-29 11:22 | Outpatient (BNV) | payer OTHER, SELFPAY | PROVIDERS: PCP Internal Medicine; Visit Provider Internal Medicine Gastroenterology | DX: Z12.11 Encounter for screening for malignant neoplasm of colon (principal); Z80.0 Family history of malignant neoplasm of digestive organs; D12.5 Benign neoplasm of sigmoid colon; K62.5 Hemorrhage of anus and rectum; K57.90 Diverticulosis of intestine, part unspecified, without perforation or abscess without bleeding; K64.8 Other hemorrhoids | CPT/HCPCS: 45380; 45385 ==

== ENCOUNTER 2024-05-09 10:38 | Outpatient (REF) | payer OTHER, SELFPAY ==
[2024-05-09 11:55] LABS: Albumin Level 4.2 g/dL (3.5-5.0); Alkaline Phosphatase 59 U/L (39-117); Aspartate Amino Transferase 55 U/L (5-37); Bilirubin Direct 0.2 mg/dL (0.0-0.5); Bilirubin Total 0.4 mg/dL (0.0-1.0); Total Protein 7.5 g/dL (6.5-8.0)
[2024-05-09 12:11] LABS: Alanine Aminotransferase 111 U/L (0-40)
== END 2024-05-09 10:39 | disposition home or self-care (01) ==
LOC: HO.LAB 10:38
PROVIDERS: PCP Internal Medicine; Visit Provider Podiatrist
DX: B35.1 Tinea unguium (principal)
CPT/HCPCS: 36415; 80076

== ENCOUNTER 2024-05-13 12:40 | Outpatient (AMB) | payer OTHER, SELFPAY ==
[2024-05-13 12:46] VITALS: BP 136/94; PULSE 96; BMI 28.4
--- NOTE | 2024-05-13 12:46 | A.OFFVIS_ITS ---
Vital Signs 05/13/24 12:46 Height 5 ft 4 in Weight 165 lb 5.547 oz BMI 28.4 BP 136/94 H Blood Pressure Location Lt brachial Position Sitting Pulse 96 Intake Visit Reasons: s/p egd/colon Intake Note: Doc presents in the office as a follow up COLO. CC: He states he just had a COLO - he has not been feeling well. He is not sure if it is the antibiotics making him feel the way that he is. Instructional Services Specialist Required: No Allergies No Known Allergies Allergy (Verified 05/13/24 12:47) HPI HPI s/p egd/colon: Details: LAST VISIT: Screen for colon cancer GERD (gastroesophageal reflux disease) Plan Patient denies any cardiac or respiratory symptoms.? Denies any issues with anesthesia in the past.? Denies any history of sleep apnea.? No history infectious diseases in the past or present.? Not on any anticoagulation therapy.? Family history of CRC. Patient reports epigastric pain postprandially, currently not on any PPI. Will send him for upper endoscopy to rule out gastritis, esophagitis, duodenitis, gastric or peptic ulcers, Lelbanc's, H pylori.? Patient denies melena, hematochezia, unintentional weight loss or ribbon like stools.? Discussed at length the pre-procedure,? prep, diet & medications as well as what to expect prior, during and after the procedure.?? Stressed the importance of good bowel prep.? Recommended the use of Vaseline or Calmoseptine OTC & baby wipes with bowel movements to promote comfort.? ?Patient verbalizes understanding and agrees to plan of care.? He was given the opportunity to ask questions and all questions answered.? We will see him after the procedure.? Medications New polyethylene glycol 3350 (Miralax) As directed by gastroenterology department at [facility] 238 grams PO ONCE 238 grams 0RF Z12.11 bisacodyl (Dulcolax (bisacodyl)) take 4 tabs at noon the day before your colonoscopy 20 mg (4 x 5 mg) PO ONCE 1 day 4 tabs 0RF Z12.11 COLONOSCOPY Findings: Terminal Ileum: Not evaluated Cecum: Normal Ascending Colon: Moderate diverticulosis throughout the entire colon Transverse Colon: Moderate diverticulosis throughout the entire colon Descending Colon: Moderate diverticulosis throughout the entire colon Sigmoid Colon: A 7-8 mm sessile polyp in the distal sigmoid colon - removed with a hot snare. A focal area of erythema, edema and aphthoid ulcers from 20 to 30 cms (in an area of severe diverticulosis) - multiple biopsies were obtained. Severe diverticulosis with luminal narrowing Rectum: Normal Ano-rectum: Moderate internal hemorrhoids Colon preparation: Good after copious irrigation. [place] Bowel Preparation Scale Right colon; 2 Transverse colon: 2 Left colon; 2 (0 = Unprepared colon segment with mucosa not seen due to solid stool that cannot be cleared. 1 = Portion of mucosa of the colon segment seen, but other areas of the colon segment not well seen due to staining, residual stool and/or opaque liquid. 2 = Minor amount of residual staining, small fragments of stool and/or opaque liquid, but mucosa of colon segment seen well. 3 = Entire mucosa of colon segment seen well with no residual staining, small fragments of stool or opaque liquid) Impression and Post Procedure Diagnosis: Colonoscopy Findings: One small polyp was removed Moderate to severe diverticulosis seen in the entire colon Moderate hemorrhoids on retroflexed exam. A focal area of erythema, edema and aphthoid ulcers from 20 to 30 cms (in an area of severe diverticulosis) - likely due to segmental colitis associated with diverticulosis (SCAD) versus IBD (less likely) Rectal bleeding likely from area of focal colitis Plan: Pt has a FU appointment on 05/13/24 with Darby Chase NP Repeat Colonoscopy in 5 years if polyps are adenomatous and due to family history of colon cancer. Above findings were reviewed with the patient and relevant handouts were given and the discharge area. Pt reports intermittent episodes of LLQ pain suggestive of recurrent diverticulitis. ADDENDUM: BIOPSIES SHOWED: A. Colon, sigmoid, biopsy: Active colitis with moderate activity and features of early evolving chronicity (see comment). B. Colon, sigmoid, polypectomy: Tubular adenoma; negative for high-grade dysplasia. COMMENT (A): No granulomas are identified. The differential diagnosis includes diverticular disease - associated segmental colitis (favored), infection, drug/medication effect and early idiopathic inflammatory bowel disease. Note is made of the patient's history of severe diverticulitis. Clinical correlation is advised Pt informed of biopsy results and prescribed Cirpofloxaxin and Metronidazole x 14 days for segmental colitis If pt continues to have rectal bleeding, consider further evaluation with CBC, CRP, IBD serologies and an Abd-Pelvic CT scan with IV and PO contrast to evaluate area of colitis. If CT scan shows persistent inflammation/pt remains symptomatic, he can be treated with mesalamine intermediate teacher. If he continues to have recurrent diverticulitis, he can be referred to surgery for a sigmoid colectomy Patient placed on the colonoscopy recall list for repeat colonoscopy in 5 years. TODAY'S VISIT Patient is here today for follow-up and to discuss colonoscopy results. Patient denies any ill effects from the prep, anesthesia or procedure itself, however patient reports that he has been feeling crampy. Patient was placed on antibiotics Cipro and metronidazole. Active segmental colitis noted in sigmoid colon diverticular favored. Patient denies any mucus in his stools, no blood. Reports to have postprandial loose stools and cramping. One tubular adenoma found without high-grade dysplasia or carcinoma. Patient had diverticular disease throughout the whole colon worsened in sigmoid colon with significant luminal narrowing. Patient denies any dyspepsia, dysphagia or odynophagia. Family history of CRC [facility] Medical History (Updated 05/23/24 @ 18:04 by Betsy Chase, [facility]) Diverticulosis GERD (gastroesophageal reflux disease) Borderline hypercholesterolemia Tinea versicolor Male pattern baldness Surgical History History of colonoscopy with polypectomy (04/29/24) [place] teeth extracted Family History Mother No problems noted. Father No problems noted. Maternal Uncle Colon cancer Other Mental health disorder Substance use disorder Social History Housing: Apartment Are you a primary rental boats caretaker to a significant other at home: No Do you presently have visiting nurse or other home services: No Alcohol intake: former Year quit: 3 y Patient Tobacco Use Status: Current everyday Tobacco user Tobacco use type: Smokeless Tobacco e-Cigarette/Vaping Use: Former Use Second Hand Smoke Exposure: Yes service: No Current occupational status: employed Current occupational exposures/hazards: No Cognitive needs: No Hearing needs: No Vision needs: No Review of Systems Const Denies weight gain and Denies weight loss ENT Reports no additional complaints, Denies dysphagia and Denies odynophagia Card Reports no additional complaints Resp Reports no additional complaints GI Reports abdominal pain, Denies belching, Denies melena, Reports bloating, Denies change in bowel habits, Denies dysphagia, Denies excessive flatus, Denies dyspepsia, Denies heartburn, Denies diarrhea, Reports loose stools, Denies nausea, Denies odynophagia and Denies vomiting Reports no additional complaints Musc Reports no additional complaints Neuro Reports no additional complaints Psych Reports no additional complaints Endo Reports no additional complaints Physical Exam Vital Signs: Last Vital Signs Pulse 96 05/13/24 12:46 BP 136/94 H 05/13/24 12:46 BMI result Body Mass Index 28.4 Const General: healthy appearing, no acute distress and well developed Nutritional Appearance: well nourished Orientation/consciousness: patient oriented x3 Resp Effort & Inspection: normal respiratory effort, able to speak in complete sentences, no tracheal deviation and symmetric chest movement Auscultation: clear to auscultation bilaterally Cardio Rate: regular rate GI Inspection: Yes normal to inspection and No distended Palpation (GI): Soft to palpation, not firm, nontender and No hepatosplenomegaly present Auscultation: normal bowel sounds General: Yes no CVA tenderness Back/Spine/Pelvis Back: no CVA tenderness Skin General skin exam: elasticity normal, turgor normal and dry skin Neuro General: patient oriented x3 Psych Appearance: grossly normal Mental Status: mental status grossly normal Assessment & Plan Assessment & Plan (1) Segmental colitis associated with diverticulosis: Code(s): K50.10 - Crohn's disease of large intestine without complications; K57.30 - Diverticulosis of large intestine without perforation or abscess without bleeding Category: Medical (2) GERD (gastroesophageal reflux disease): Code(s): K21.9 - Gastro-esophageal reflux disease without esophagitis Category: Medical Qualifiers: Esophagitis presence: esophagitis presence not specified Qualified Code(s): K21.9 - Gastro-esophageal reflux disease without esophagitis (3) Diverticulosis: Code(s): K57.90 - Diverticulosis of intestine, part unspecified, without perforation or abscess without bleeding Category: Medical (4) Postprandial diarrhea: Code(s): K52.9 - Noninfective gastroenteritis and colitis, unspecified Plan Will check CRP, fecal calprotectin. Patient will be sent for CT of abdomen and pelvis to re-evaluate area of colitis within the diverticulum of the sigmoid colon. Pending results patient might need to go for surgical consult for possible colon resection if diverticulosis is very severe. There was a significant luminar narrowing seen in sigmoid colon with severe diverticulosis and ulceration. Patient will finishes antibiotics and may advance his diet. He should continue low fiber diet at this time till he has a CT scan. Patient was encouraged to increase fluid intake and activity to promote better bowel motility. Follow-up appointment will be made pending results. Patient is agreeable to this plan and verbalizes understanding of instructions. He was given the opportunity to ask questions and all questions answered. Thank you for allowing me to participate in his care Orders: Orders C Reactive Protein 05/13/24 K58.9 - Irritable bowel syndrome, unspecified Calprotectin, Fecal 05/14/24 R15.9 - Full incontinence of feces CT abdomen pelvis w IV con 05/13/24 R10.9 - Unspecified abdominal pain, K50.10 - Crohn's disease of large intestine without complications, K57.30 - Diverticulosis of large intestine without perforation or abscess without bleeding, R10.32 - Left lower quadrant pain Coding Level of Care Code Est Pt Level 4 (76245) Diagnoses Segmental colitis associated with diverticulosis K50.10; K57.30 Gastroesophageal reflux disease, unspecified whether esophagitis present K21.9 Esophagitis presence: esophagitis presence not specified Diverticulosis K57.90 Postprandial diarrhea K52.9 Time Spent (min) 40 Comment 25 minutes spent with patient and additional 15 minutes spent reviewing his records
== END 2024-05-13 13:21 | disposition home or self-care (01) ==
LOC: HO.HGI 12:40
PROVIDERS: PCP Internal Medicine; Visit Provider Nurse Practitioner Family
DX: K50.10 Crohn's disease of large intestine without complications (principal); K57.30 Diverticulosis of large intestine without perforation or abscess without bleeding; K21.9 Gastro-esophageal reflux disease without esophagitis; K57.90 Diverticulosis of intestine, part unspecified, without perforation or abscess without bleeding; K52.9 Noninfective gastroenteritis and colitis, unspecified
CPT/HCPCS: 99214

== ENCOUNTER 2024-05-13 12:40 | Outpatient (REF) | payer OTHER, SELFPAY ==
[2024-05-13 15:05] LABS: C Reactive Protein 0.12 mg/dL (< or = 0.50)
== END 2024-05-13 12:41 | disposition home or self-care (01) ==
LOC: HO.LAB 12:40
PROVIDERS: PCP Internal Medicine; Visit Provider Nurse Practitioner Family
DX: K58.9 Irritable bowel syndrome, unspecified (principal)
CPT/HCPCS: 36415; 86140

== ENCOUNTER 2024-05-24 09:27 | Outpatient (AMB) | payer OTHER, SELFPAY ==
[2024-05-24 09:29] VITALS: BP 136/94; PULSE 74; RESP 20; TEMP 36.3; O2SAT 97; BMI 28.5
--- NOTE | 2024-05-24 09:29 | MHC.PC.OV ---
Vital Signs 05/24/24 09:29 Height 5 ft 4 in Weight 166 lb BMI 28.5 BP 136/94 H Blood Pressure Location Lt brachial Position Sitting Respiration 20 Pulse 74 Pulse Source Pulse Oximeter Temp 97.3 F Temp Source Temporal Artery Scan Pulse Oximetry (%) 97 Oxygen Delivery Method Room Air Intake Visit Reasons: htn Hourly Shift Required: No Accompanied by: Self / Same As Patient Allergies No Known Allergies Allergy (Verified 05/24/24 09:51) Medication List - Last Reconciled 05/24/24 by Annalisa Live PA-C atorvastatin 10 mg PO BEDTIME pantoprazole 40 mg PO DAILY Tobacco use date assessed: 05/24/24 Dental Screening Dental Screen Date: 05/24/24 Did you have a dental visit in the last 12 months?: Yes Did you have a dental problem in the last 6 months where you did not have access to dental care?: No Was dental information given to patient?: Patient has dentist [facility] Medical History (Updated 05/24/24 @ 10:01 by Annalisa Live PA-C) Overweight with body mass index (BMI) of 28 to 28.9 in adult Depression Pure hypercholesterolemia, unspecified Hyperlipidemia LDL goal <100 Hypertension Diverticulosis GERD (gastroesophageal reflux disease) Borderline hypercholesterolemia Tinea versicolor Male pattern baldness Surgical History History of colonoscopy with polypectomy (04/29/24) [place] teeth extracted Family History Mother No problems noted. Father No problems noted. Maternal Uncle Colon cancer Other Mental health disorder Substance use disorder Social History Housing: Apartment Are you a primary animal caretaker supervisor to a significant other at home: No Do you presently have visiting nurse or other home services: No Alcohol intake: former Year quit: 3 y Patient Tobacco Use Status: Never used Tobacco e-Cigarette/Vaping Use: Currently Using Second Hand Smoke Exposure: Yes service: No Current occupational status: employed Current occupational exposures/hazards: No Cognitive needs: No Hearing needs: No Vision needs: No Questionnaire PHQ-9 Over the last 2 weeks, how often have you been bothered by any of the following problems? 1. Little interest or pleasure in doing things: nearly every day 2. Feeling down, depressed, or hopeless: more than half the days 3. Trouble falling or staying asleep, or sleeping too much: nearly every day 4. Feeling tired or having little energy: nearly every day 5. Poor appetite or overeating: more than half the days 6. Feeling bad about yourself - or that you are a failure or have let yourself or your family down: not at all 7. Trouble concentrating on things, such as reading the newspaper or watching television: several days 8. Moving or speaking so slowly that other people could have noticed. Or the opposite - being so fidgety or restless that you have been moving around a lot more than usual: not at all 9. Thoughts that you would be better off or of hurting yourself in some way: not at all Total score: 14 Depression Screening Interpretation: Positive Depression Screening Follow-up: Declines treatment Depression Screening Done: Yes 34710 - PHQ-9 Billing: Yes Source: Developed by Drs. Michele Nj, Sandra Olson, Jarrett Rutherford and colleagues, with an educational [email or web address] from [employer]. Thrive Questionnaire Date Thrive assessed: 05/24/24 I am a: Patient What is your living situation today?: I have a steady place to live Within the past 12 months, did the food you bought not last and you didn't have the money to get more?: Never true Within the past 12 months, did you worry whether your food would run out before you got money to buy more?: Never true Do you have trouble paying for medicines?: No Do you have trouble getting transportation to medical appointments?: No Do you have trouble paying your heating and electricity bill?: No Do you have trouble taking care of your child, family member or friend?: No Do you have trouble with day-to-day activities such as bathing, preparing meals, shopping, managing finances, etc.?: No Are you currently unemployed and looking for a job?: No Are you interested in more education?: No Please select the resources that you would like help with: None Currently or been in a relationship where the following occur: No concerns reported THRIVE Score: 0 AUDIT C Alcohol Use Questionnaire (AUDIT-C) 1. How often do you have a drink containing alcohol?: Never 3. How often do you have six or more drinks on one occasion?: Never Total Score: 0 Score Reviewed/Action Taken: No THERESA-7 AMB Questionnaire THERESA-7 Date THERESA - 7 assessed: 05/24/24 Feeling nervous, anxious, or on edge: 3 = Nearly every day Not being able to stop or control worryin = Not at all Worrying too much about different things: 3 = Nearly every day Trouble relaxin = Nearly every day Being so restless that it is hard to sit still: 0 = Not at all Becoming easily annoyed or irritable: 1 = Several days Feeling afraid as if something awful might happen: 0 = Not at all Total THERESA-7 score (0-4 normal; 5-9 mild; 10-14 moderate; 15-21 severe): 10 Source: Developed by Drs. Michele Nj, Sandra Olson, Jarrett Rutherford and colleagues, with an educational [email or web address] from [employer]. THERESA-7 Assessment Billing THERESA-7 Assessment Tool: THERESA-7 Assessment 85897 Physical exam (Primary Care) Vital Signs: Last Vital Signs Temp 97.3 F 05/24/24 09:29 Pulse 74 05/24/24 09:29 Resp 20 05/24/24 09:29 BP 136/94 H 05/24/24 09:29 Pulse Ox 97 05/24/24 09:29 Oxygen Delivery Method Room Air 05/24/24 09:29 Care Plan Goal for BP management: <130/80 patient will be started on lisinopril 10 mg daily BMI result Body Mass Index 28.5 BMI Assessment/Plan discussion: High BMI High, discussed plan: lifestyle, weight reduction, dietary, physical activity and alcohol moderation Tobacco/Smoking Status: Tobacco use Status Tobacco use date assessed 05/24/24 05/24/24 09:45 Patient Tobacco Use Status Never used Tobacco 05/24/24 09:45 Tobacco use type 05/24/24 09:45 e-Cigarette/Vaping Use Currently Using 05/24/24 09:45 PHQ-9: PHQ-9 Score PHQ-9: Total score 14 05/24/24 09:45 Depression Screening Interpretation: Positive Depression Screening Follow-up: Declines treatment Thrive Assessment: Date of Thrive Assessment Date Thrive assessed 05/24/24 05/24/24 09:45 Currently or been in a relationship where the following occur: No concerns reported Coding Level of Care Code Est Pt Level 4 (31874) Complex EM visit Add On G2211 Diagnoses Hypertension I10 Gastroesophageal reflux disease, unspecified whether esophagitis present K21.9 Esophagitis presence: esophagitis presence not specified Hyperlipidemia LDL goal <100 E78.5 Pure hypercholesterolemia, unspecified E78.00 Depression F32.A Overweight with body mass index (BMI) of 28 to 28.9 in adult E66.3; Z68.28 Additional Codes THERESA-7 Assessment Billing - THERESA-7 Assessment Tool: THERESA-7 Assessment 25702 ([id number]) PHQ-9 - 68565 - PHQ-9 Billing: Yes ([id number]) Assessment & Plan Assessment & Plan (1) Hypertension: Code(s): I10 - Essential (primary) hypertension Category: Medical Plan: I have prescribed lisinopril 10 mg daily for essential hypertension, with instructions for home blood pressure monitoring using an affordable cuff, to be measured two hours post-medication intake. Side effects such as cough were discussed, with a plan for reevaluation in one month to assess efficacy and side effects. (2) GERD (gastroesophageal reflux disease): Code(s): K21.9 - Gastro-esophageal reflux disease without esophagitis Category: Medical Qualifiers: Esophagitis presence: esophagitis presence not specified Qualified Code(s): K21.9 - Gastro-esophageal reflux disease without esophagitis Plan: The patient's GERD remains well-controlled on pantoprazole, with no reported issues necessitating alterations. He is instructed to maintain his current regimen. (3) Hyperlipidemia LDL goal <100: Code(s): E78.5 - Hyperlipidemia, unspecified Category: Medical Plan: The patient continues his treatment with atorvastatin 10 mg at bedtime. No changes are required in the hyperlipidemia management as current treatment appears effective and the patient has no new complaints. (4) Pure hypercholesterolemia, unspecified: Code(s): E78.00 - Pure hypercholesterolemia, unspecified Category: Medical Plan: The patient continues his treatment with atorvastatin 10 mg at bedtime. No changes are required in the hyperlipidemia management as current treatment appears effective and the patient has no new complaints. (5) Depression: Code(s): F32.A - Depression, unspecified Category: Medical Plan: Patient has scored high in his PHQ 9 score. Although denies any SI or HI or any auditory visual sensation. Does not feel like he is interested in a referral for therapy or psychiatrist at this time. Will continue to re-evaluate at each visit. Condition is chronic and stable will continue to monitor. (6) Overweight with body mass index (BMI) of 28 to 28.9 in adult: Code(s): E66.3 - Overweight; Z68.28 - Body mass index [BMI] 28.0-28.9, adult Category: Medical Plan: Patient to improve his diet and exercise regimen. Condition is chronic and stable continue to monitor. Plan Plan Patient was informed and verbally consented to the use of an ambient scribe for clinic note documentation during this visit. 1. Essential Hypertension I have prescribed lisinopril 10 mg daily for essential hypertension, with instructions for home blood pressure monitoring using an affordable cuff, to be measured two hours post-medication intake. Side effects such as cough were discussed, with a plan for reevaluation in one month to assess efficacy and side effects. 2. Gastroesophageal Reflux Disease Gerd The patient's GERD remains well-controlled on pantoprazole, with no reported issues necessitating alterations. He is instructed to maintain his current regimen. 3. Hyperlipidemia The patient continues his treatment with atorvastatin 10 mg at bedtime. No changes are required in the hyperlipidemia management as current treatment appears effective and the patient has no new complaints. Discussion Notes During today's visit, I discussed the patient's essential hypertension and initiated treatment with lisinopril 10 mg daily. I explained the potential for side effects such as cough and instructed the patient to report notable symptoms. We deliberated on proper home monitoring procedures for blood pressure, emphasizing the importance of post-medication readings. Follow-up was advised in one month to review blood pressure trends and medication tolerance. Concerning his hyperlipidemia and GERD, no modifications were made to his current regimens, as they appear adequately managed. The patient declined further psychiatric evaluation related to his PHQ score, addressing concerns independently. Medications: New lisinopril 10 mg PO DAILY 90 tabs 1RF Patient Instructions: Patient Instructions - Begin taking lisinopril 10 mg daily as prescribed. - Purchase a blood pressure cuff and measure blood pressure two hours after taking medication daily. - Report any persistent cough to our office. - Adhere to current medications for hyperlipidemia and GERD without changes. - Schedule a follow-up appointment in one month for blood pressure assessment. - Seek immediate care for severe headache, dizziness, or other concerning symptoms. Scribe Plan - Not visible on output: History of Present Illness The patient is a 48-year-old male presenting with a follow-up for hypertension. His hypertension was first noted during a prior appointment and was also documented at urgent care, where he presented because of an unrelated illness. The most recent blood pressure measurement was 136/94 mmHg. The patient denies chest pain and dizziness but mentions headaches on the left side lasting one to two weeks, potentially linked to his hypertension. This is the first time he will start on antihypertensive medication. He maintains a history of hyperlipidemia, controlled with atorvastatin 10 mg at bedtime, and is managing GERD with pantoprazole. He reported no need for refills of these medications today. Review of Systems - Neurological: Reports occasional dizziness, headache on the left side of the head. - Cardiovascular: Denies chest pain, palpitations. - Respiratory: Denies shortness of breath. Physical Exam Appearance: Alert. Oriented X3. No acute distress. Head: Normal external exam. Normocephalic. Atraumatic. Reports occasional pain on the left side of the head, which is not constant and lasts for a week or two. Eyes: Pupils are equal, round, and reactive to light. Extraocular movements intact. Conjunctiva and sclera normal. Eyelids normal. Throat: Pharynx normal. Uvula midline. Moist mucous membranes. Neck: Normal inspection. Neck supple. Full range of motion. No adenopathy. Thyroid Normal. No meningeal signs. No neck mass noted. Cardiovascular: Normal heart rate and rhythm. Heart sound normal. No murmurs noted. Pulses normal throughout. Respiratory: No respiratory distress. Painless inspiration. Breath sounds normal. No wheezes/rales/rhonchi noted. Chest nontender. No accessory muscle usage noted or decreased air movement noted. Back: Full range of motion noted. Skin: Skin warm and dry. Normal skin color. Normal skin turgor. No rashes/lesions/lacerations noted. Extremities: No lower extremity edema. Extremities exhibit normal range of motion. Extremities nontender. Neuro: Oriented X 3. No motor deficit. No sensory deficit. Reflexes normal. Reports occasional dizziness.
--- OUTSIDE RECORDS SUMMARY | 2024-05-24 10:21 | XMS_ITS ---
Author Organization [facility] Address [address] [place] [address] Care Team Providers Care Marketing Automation Analyst Name Role Phone Casey Marroquin Primary Care Provider Sinai Jacobson Unavailable [phone] REASON FOR VISIT Lab results Encounters Encounter Location Date Provider Diagnosis [facility] [address] [place] [address] 05/10/2024 Sinai Jacobson Plan Of Treatment Next Appt Details Provider Name:Sinai Jacobson , 08/15/2024 09:30:00 AM, [address] [place], [address], Progress Notes * Aguilar ESPITIADanielOB: 7 (48 yo M)Acc No.[id number]:05/10/2024 Patient:?Doc ESPITIA :1975???Age:48 Y???Sex:Male Address:[address] [place] [address] [place], [address] * true * Date:? Generated for Brennen faye/Timur/eTransmitting on:?05/24/2024 10:21 AM EDT
--- OUTSIDE RECORDS SUMMARY | 2024-05-24 10:21 | XMS_ITS | Patient Health Record ---
Author Organization [facility] Address [address] [place] [address] Care Team Providers Care Revenue Director Name Role Phone LopezCasey diaz Primary Care Provider Black, Sinai Unavailable [phone] Allergies No Known Allergies Reason For Referral No Information Medications Medication SIG (Take, Route, Frequency, Duration) Notes Start Date End Date Status Atorvastatin Calcium 10 MG 1 tablet Oral ly Once a day Active Ciprofloxacin HCl 500 MG 1 tablet Orally every 12 hrs Active Pantoprazole Sodium 40 MG as directed Intravenous Active Ciclopirox 8 % 1 application thin f ilm topically to nails Externally Once a day for 30 days Active metroNIDAZOLE 500 MG 1 tablet Orally Thr ee times a day Active Social History Tobacco Use: Social History Observation Description Date Details (start date - stop date) Never Smoker NA - NA Tobacco use other than smoking: Question Answer Notes Are you an other tobacco user? Yes Tobacco Control (Standard) Question Answer Notes Tobacco use: Nonsmoker Additional Findings: Tobacco non-user Current no nsmoker AUDIT-C (Standard) Question Answer Notes Did you have a drink containing alcohol in the p ast year? No Points 0 Interpretation Negative Vital Signs Blood pressure diastolic 80 mm Hg 05/09/2024 Height 5ft4in in 05/09/2024 Blood pressure systolic 123 mm Hg 05/09/2024 Weight 170 lbs 05/09/2024 BMI 29.18 kg/m2 05/09/2024 Encounters Encounter Location Date Provider Diagnosis [facility] [address] [place] [address] 05/09/2024 Sinai Black Pain in right toe(s) M79.674 ; Onychomycosis B35.1 and Pain in left toe(s) M79.675 [facility] [place] [address] [place] [address] 05/10/2024 Sinai Jacobson Assessments Encounter Date Diagnosis (ICD Code) Assessment Notes Treatment Notes Treatment Clinical Notes Section Notes 05/09/2024 Pain in right toe(s) (ICD-10 - M79.674) 05/09/2024 Onychomycosis (ICD-10 - B35.1) 05/09/2024 Pain in left toe(s) (ICD-10 - M79.675) Plan Of Treatment Pending Test Test Name Order Date *Liver Function Test (LFT) 05/09/2024 Next Appt Details Provider Name:Sinai Jacobson , 08/15/2024 09:30:00 AM, [address] [place] [address], [phone], Insurance Providers Payer Name Payer Address Payer Phone Subscriber Number Group Number Insured Name Patient Relationship to Insured Coverage Start Date Coverage End Date [employer] [address] [place] [address] [id number] Doc Quintanilla Self - patient is the insured Medical (General) History Medical History History ICD Code Anxiety asthma covid-19 Depression Chicken pox Diverticulosis Surgical History Surgery Date(Month/Year) colonoscopy
--- OUTSIDE RECORDS SUMMARY | 2024-05-24 10:21 | XMS_ITS | Data Portability ---
Author Organization [facility] Address [address] [place] [address] Assessment No assessment recorded. Plan of Treatment Reminders Order Date Submit Date Provider Last Modified By Organization Details Last Modified Time Details Appointments None recorded. Lab rapid SARS CoV 2 Ag, QL IA, respiratory specimen [email or web address] [place] [address], [address] [place] [address], [id number], 11:48:05 Referral None recorded. Procedures None recorded. Surgeries None recorded. Imaging None recorded. Medication Orders None recorded. Patient TargetsNo targets recorded. Patient Instructions Encounter Date Encounter Id Patient Instructions Last Modified By Organization Details Last Modified Time 03/29/2022 [id number] You have been Diagnosed with COVID - [...] this over a decongestant. 3. Saline Nasal [place] 4. Salt Water Gargles. I would be [...] AND HUMAN SERVICES Thank you for visiting [facility] today, please feel free to call our office you have any questions or concerns. [email or web address] Not available 03/29/2022 11:48:00 Reason for Referral None Reported. Results Created Date Observation Date Name Description Value Unit Range Abnormal Flag Note LastModifiedBy Organization Detail LastModifiedTime Result Notes None recorded. Problems Name Problem SNOMED Code Status Onset Date Resolution Date Notes Provider Name and Address Organization Details Recorded Time Hyperlipidemia 07892182 Active 2022 [facility] 11:43:27 Asthma 945044297 Active 2022 [facility] 11:43:32 [...] Updated DateTime 3 162.56 cm 26.6 kg/m2 54381.8 2 g 0 99 % 99 % 90 /min 18 /min 98.5 [degF] 127 mm[Hg] 82 mm[Hg] [facility] 11:42:24 Social History Question Answer Notes LastModified by Organizat ion Details LastModified Time Tobacco Smoking Status Former Smoker [facility] 03/29/2022 11:44:03 What Is Your Level Of Alcohol Consumption? None [email or web address] Information not available 03/29/2022 Do You Or Have You Ever Used E-cigarettes Or Vape? Current User Of Electronic Cigarettes [email or web address] Information not available 03/29/2022 Do You Use Any Illicit Or Recreational Drugs? No [email or web address] Information not available 03/29/2022 Have You Recently Traveled Abroad? No [email or web address] Information not available 03/29/2022 Do You Or Have You Ever Used Any Other Forms Of Tobacco Or Nicotine? Yes Information not available 03/29/2022 Sex: Unknown Functional Status None recorded. Mental Status None recorded. Family History Relationship Description Onset Age of this Age Resolved Age Notes LastModified by Organization Details LastModified Time Father No current problems or disability [email or web address] Not available 03/29 11:43:37 Mother No current problems or disability [email or web address] Not available 03/29 11:43:37 Medical History No medical history recorded. Past Encounters Encounter ID Performer Location Encounter Start Date Encounter Closed Date Diagnosis/Indication Diagnosis SNOMED-CT Code Diagnosis ICD10 Code Diagnosis Note [id number] [address] [place] [address] 04/29/2015 17:30:19 04/29/2015 18:43:52 [id number] [address] [place] [address] 03/21/2015 19:49:48 03/21/2015 20:06:19 [id number] [address] [place] [address] 07/06/2016 14:12:16 07/06/2016 15:18:51 [id number] [facility] [address] [place] [address] 03/29/2022 11:08:19 03/29/2022 11:59:32 COVID-19 [id number] U07.1 Health Concerns Section Related Observation LastModified by Organization Detai ls LastModified Time None Recorded Concern Status LastModified by Organization Details LastModified Time None Recorded Advance Directives Directive None Recorded Payers Encounter Date Sequence Insurance Name Policy Number Policy Grace Covered Member ID Grace Member ID Guarantor Name 07/06/2016 1 [employer] (POS) [id number] Doc Quintanilla [id number] Doc Quintanilla 03/29/2022 1 [facility] [id number] Doc[place]ustavo [place] [id number] Doc [place] Notes Date Note Type Note Provider Name [...] No history of COVID. Vaccinated. RENEE MORENO [facility] [place], [address], [place] - [facility] 03/29/2022 11:58:00
--- OUTSIDE RECORDS SUMMARY | 2024-05-24 10:24 | XMS_ITS ---
[facility] Dolores [facility]dy [facility] Address [address] [place] [address] Care Team Providers Care Metal Sprayer Production Name Role Phone Casey Marroquin Primary Care Provider Black, Sinai Unavailable [phone] Allergies No Known Allergies REASON FOR VISIT Fungal Nails Medications Medication SIG (Take, Route, Frequency, Duration) [...] No Points 0 Interpretation Negative Vital Signs Height 5ft4in in 05/09/2024 Weight 170 lbs 05/09/2024 BMI 29.18 kg/m2 05/09/2024 Blood pressure systolic 123 mm Hg 05/10/19 25 Blood pressure diastolic 80 mm Hg 025 Encounters Encounter Location Date Provider Diagnosis [facility] [address] [place] [address] 05/09/2024 Sinai Black Pain in right toe(s) M79.674 ; Onychomycosis B35.1 and Pain in left toe(s) M79.675 Assessments Encounter Date Diagnosis (ICD Code) Assessment Notes Treatment Notes Treatment Clinical Notes Section Notes 05/09/2024 Pain in right toe(s) (ICD-10 - M79.674) 05/09/2024 Onychomycosis (ICD-10 - B35.1) 05/09/2024 Pain in left toe(s) (ICD-10 - M79.675) Plan Of Treatment Medication Medication Name Sig Start Date Stop Date Notes Ciclopirox 8 % 1 application thin f ilm topically to nails Externally Once a day for 30 days Pending Test Test Name Order Date *Liver Function Test (LFT) 05/09/2024 Next Appt Details Follow Up: 2-3 Months, Reaso n: Provider Name:Sinai Jacobson , 08/15/2024 09:30:00 AM, [address] [place] [address], [address], Progress Notes * Aguilar ESPITIADanielOB: 7 (48 yo M)Acc No.[id number]:05/09/2024 Progress Notes Patient:?Doc ESPITIA Provider:?Sinai Jacobson DPM :1975???Age:48 Y???Sex:Male Nirmal e:05/09/2024 Address:[address] [place], [place] [id number] Pcp:Casey Marroquin Subjective: * Chief Complaints: * ???Fungal Nails * HPI: ???Painful Nails:?Nature:?aching, tender, discolored, thick.?Location:?Great toe, , 5th toe, Right foot.?Duration:?, several years.?Course:?worse.?Aggravated by:?shoegear causing difficulty standing/walking.?Treatments:?, OTC Topical Antifungal for a few weeks.? * ROS:?General/Constitutional:?Nausea?denies.?Vomiting?denies.?Hunger Thirst?denies.?Loss appetite?denies.?Chills?denies.?Fatigue?denies.?Fever?denies.?Night Sweats?denies.?Unexplained weight loss?denies.?Unexplained weight gain?denies.?HEENTM:?Dentures?denies.?Dizziness?denies.?Glasses/contacts?denies.?Retinopathy?de nies.?Blurred/double vision?admits.?TMJ?denies.?Discharge/drainage?denies.?Implants?denies.?Sore throat?denies.?Dental implants?denies.?Hard of hearing ?denies.?Difficulty chewing/swallowing/speaking?denies.?Nose bleeds?denies.?Sore mouth?denies.?Respiratory:?On Oxygen?denies.?Pneumonia/pleurisy?denies.?Bronchitis?denies.?Emphysema?denies.?C oughing?denies.?Cough blood?denies.?Shortness of breath?denies.?Wheezing?denies.?Cardiovascular:?Pacemaker?denies.?MVP?denies.?WPW?denies.?CHF?denies.?Heart attack?denies.?Septal defect?denies.?Rapid beat?denies.?Chest pain ?denies.?Atrial Fib.?denies.?Murmur/Palpitations?denies.?Gastrointestinal:?Hemorrhoids?denies.?Stomach/Abdominal pain?admits.?Dark blood stool?denies.?Irritable bowel ?denies.?Constipation?denies.?Diarrhea?denies.?Hematology:?Swelling?denies.?Clots?denies.?Varicose Veins?denies.?Bruising?denies.?Bleeding problem?denies.?Genitourinary:?Blood urine?denies.?Frequent/Painfu/urination/bladder control?denies.?Kidney stones?denies.?Infection (UTI)?denies.?Nephropathy?denies.?sex trans dis (STD)?denies.?Prostate?denies.?Musculoskeletal:?Hammertoes?denies.?Bunions?denies.?Back Pain?denies.?Muscle Cramps/ Resting?denies.?Muscle cramps / walking?denies.?Generalized aches and pains?denies.?Weakness?denies.?Integ.:?Mendez?denies.?Scars?denies.?Corns/calluses?denies.?Ingrown nails?denies.?Painful nails?,admits.?Open Sores?denies.?Rashes?denies.?Neurologic:?Difficulty sleeping?denies.?Brain disorder?denies.?Numbness?denies.?Balance trouble?denies.?Confusion?denies.?Fainting/blackouts?denies.?Tingling?denies.?Tr emors?denies.? * Medical History:? * Surgical History:?colonoscop y * Hospitalization/Major Diagno stic Procedure:?Denies Past Hospitalization * Family History:?Maternal Gra nd Mother: diagnosed with Diabetic - NIDDM.?Maternal Grand Father: diagnosed with Unspecified heart disease.? * Social History:?Tobacco Use:?Tobacco use other than smoking?Are you an other tobacco user??Yes ?Tobacco Control (Standard)?Tobacco use:?Nonsmoker ?Additional Findings: Tobacco non-user?Current nonsmoker ???Drugs/Alcohol:?Drugs?Have you used drugs other than those for medical reasons in the past 12 months??No ???Miscellaneous:?Caffeine: yes, frequency:. ?Children: yes. ?Exercise: no. ?Marital status: . ?Occupation: [employer]. ???Drug/Alcohol:?AUDIT-C (Standard)?Did you have a drink containing alcohol in the past year??No ?Points?0 ?Interpretation?Negative * Medications:?TakingmetroNIDA ZOLE 500 MG Tablet 1 tablet Orally Three times a day Ciprofloxacin HCl 500 MG Tablet 1 tablet Orally every 12 hrs Pantoprazole Sodium 40 MG Solution Reconstituted as directed Intravenous Atorvastatin Calcium 10 MG Tablet 1 tablet Orally Once a day Medication List reviewed and reconciled with the patientTaking metroNIDAZOLE 500 MG Tablet 1 tablet Orally Three times a day Taking Ciprofloxacin HCl 500 MG Tablet 1 tablet Orally every 12 hrs Taking Pantoprazole Sodium 40 MG Solution Reconstituted as directed Intravenous Taking Atorvastatin Calcium 10 MG Tablet 1 tablet Orally Once a day Medication List reviewed and reconciled with the patient * Allergies:?N.K.D.A.yes[Aller gies Verified] Objective: * Vitals:?Ht: 5ft4in, Wt:170, BMI:29.18, Shoe size: 7.5, BP:123/80mm Hg, Ht-cm: 162.56 cm, Wt-k.11 kg. * Examination: ???General Examination: ?GENERAL APPEARANCE:?Reveals a pleasant, alert, well nourished, well- developed, well hydrated individual, who demonstrates proper attention to hygiene/body habitus, and is in no acute distress, Pt serves as own historian for office visit today.?ORIENTED:?person, place, and time.?Nails: ?NAILS are:?Elongated, overgrown, dystrophic, lytic, greater than 3mm thick, discolored and friable with crumbly malodorous subungual debris, with pain on palpation, TA, T5, T9.?Vascular: ?DP PULSES (B):?3/4, B/L.?PT PULSES (B):?3/4, B/L.?CAPILLARY FILL TIME:?immediate, all digits, B/L.?TROPHIC CONDITION-TEXTURE/ELASTICITY/TURGOR/HAIR GROWTH (B):?normal, B/L.?TEMPERTURE GRADIENT (C):?normal, warm to cool, proximal to distal, B/L, B/L.?PIGMENTATION:?normal, B/L.?EDEMA (C):?absent, B/L.?Neurological: ?SENSORY:?Neurological exam reveals intact sensorium, pain sensation normal, vibration sensation intact, pinprick sensation is normal in the lower extremities, Pt denies, anesthesia, burning, paresthesia, tingling, B/L.? Assessment: * Assessment: 1.?Pain in right toe(s) - M7 9.674???2.?Onychomycosis - B35.1 (Primary)???Specify :Chronic problem, Worse (4) Rx Management (4)???3.?Pain in left toe(s) - M79.675??? Plan: * Treatment: * Procedure Codes:? * Preventive Medicine:? ??Counseling:?Tobacco use:?Type of Tobacco Use Cessation Counseling provided?Smoking cessation education ?Patient counseled on the dangers of smoking and urged to quit:?05/09/2024 ?Discussion:?-03: Office or other outpatient visit for the evaluation and management of a new patient, which required a medically appropriate history and/or examination and LOW level of DECISION MAKING for: 1 STABLE ACUTE UNCOMPLICATED PROBLEM, 2 OR MORE MINOR PROBLEMS, OR 1 STABLE CHRONIC PROBLEM, THAT POSE(S) A LOW RISK FOR MORBIDITY/MORTALITY. The visit on the day of the encounter encompassed interpreting the data and educating the patient as to the nature of their condition, treatment options available according to their individual PMH, meds, allergies, and overall health/living conditions, as well as any potential risks or complications that may occur from a failure to adhere to, and participate in, the recommended course of therapy. The discussion included a complete verbal, and/or written explanation of the examination results, any x-rays taken, the proposed diagnosis, and outline of the treatment plan. A schedule for future care needs was also explained. The patient verbalized an understanding of the instructions at this time and agreed to be an active participant in their treatment. If the patient should think of any questions or concerns after the visit, I have encouraged the patient to call the office.?Fungal Nail Counseling:?The patient was counseled on the diagnosis, potential etiologies (including, but not limited to, environmental factors, genetic, immune deficiency), and the multiple treatment options for Onychomycosis. We discussed the risks and benefits of each option from performing no treatment, to ultraviolet light shoe treatment, to laser nail treatment, to applying topical antifungals, to taking oral antifungal medication, to surgical removal of the involved nail(s) with or without performing a matricectomy, or any combination thereof. We discussed the advantages and disadvantages of each of possible treatment and importance for adherence to all the recommended therapies for optimum success. This includes the necessity for weekly emery board self nail home debridements, and control the nail and skin environment as much as possible by only using a fresh, dry pair of shoes/socks each day, as well as keeping the skin as dry as possible through the use of sprays/powders if necessary. The patient was instructed to discard the emery board after use to prevent reinfection of the involved nail(s). We discussed the mycological and visual clinical effectiveness of topical vs oral antifungal treatments as well as each ones potential side effects and/or any patient- specific medication interactions. We discussed the reasons behind the important requirement of regular liver function testing with oral antifungal therapy for safety. Patient questions regarding use, dosage, successful outcomes, blood tests, and possible pharmaceutical interactions were reviewed and the patient verbalized that all answers were clearly understood, The Pt prefers PO treatment, An LFT was ordered in preparation for Lamisil prescription therapy.? ??Screening/Special Tests:?Fall Risk?Screening:?No falls in the past year ?FALLS: Screening for Future Fall Risk?Have you had any falls with injury in the past year??No * Follow Up:?2-3 Months * Images: * Sign off status: Completed true * Provider:Saul Jacobson DPM Date:?2024 Generated for Maynori yunier/Adrianeg/eTransmitting on:?05/24/2024 10:23 AM EDT History and Physical Notes * HPI (History of Present Illness) Category Sub-Category Detail Notes Category Not es Painful Nails Aggravated by: shoegear causing difficulty standing/walking Course: worse Duration: , several years Location: Great toe, , 5th toe , Right foot Nature: aching, tender, disc olored, thick Treatments: , OTC Topical Antifu ngal for a few weeks Examination Category Sub-Category Detail Notes Category Not es Neurological SENSORY: Neurological exa m reveals intact sensorium, pain sensation normal, vibration sensation intact, pinprick sensation is normal in the lower extremities, Pt denies, anesthesia, burning, paresthesia, tingling, B/L General Examination GENERAL APPEARANCE: Reveals a pleasant, alert, well nourished, well-developed, well hydrated individual, who demonstrates proper attention to hygiene/body habitus, and is in no acute distress, Pt serves as own historian for office visit today ORIENTED: person, place, and t tylor Vascular DP PULSES (B): 3/4, B/L PT PULSES (B): 3/4, B/L CAPILLARY FILL TIME: immediate, all digi ts, B/L TEMPERTURE GRADIENT (C): normal, warm to cool, proximal to distal, B/L, B/L TROPHIC CONDITION-TEXTURE/ELASTICITY/TURGOR/HAIR GROWTH (B): normal, B/L EDEMA (C): absent, B/L PIGMENTATION: normal, B/L Nails NAILS are: Elongated, overg rown, dystrophic, lytic, greater than 3mm thick, discolored and friable with crumbly malodorous subungual debris, with pain on palpation, TA, T5, T9
== END 2024-05-24 09:58 | disposition home or self-care (01) ==
LOC: HO.HMCH 09:28
PROVIDERS: PCP Internal Medicine; Visit Provider Physician Assistant Medical
DX: I10 Essential (primary) hypertension (principal); K21.9 Gastro-esophageal reflux disease without esophagitis; E78.5 Hyperlipidemia, unspecified; E78.00 Pure hypercholesterolemia, unspecified; F32.A Depression, unspecified; E66.3 Overweight; Z68.28 Body mass index [BMI] 28.0-28.9, adult

== ENCOUNTER → 2024-05-24 09:27 | Outpatient (BNVA) | payer OTHER, SELFPAY | PROVIDERS: PCP Internal Medicine; Visit Provider Physician Assistant Medical | DX: I10 Essential (primary) hypertension (principal); K21.9 Gastro-esophageal reflux disease without esophagitis; E78.00 Pure hypercholesterolemia, unspecified; F32.A Depression, unspecified; E66.3 Overweight; Z68.28 Body mass index [BMI] 28.0-28.9, adult; Z79.899 Other long term (current) drug therapy | CPT/HCPCS: 96127 ==

== ENCOUNTER 2024-05-28 23:35 | Emergency (ER) | payer OTHER, SELFPAY ==
--- NOTE | ~2024-05-28 | XR_ITS ---
CLINICAL HISTORY: L. calf pain after popping sensation 2 view left tibia-fibula Comparison: None Findings Subtle lucency identified along the posterior aspect of the distal left fibula on the lateral image. The left tibia appears intact. Small plantar calcaneal spur. Small to moderate posterior calcaneal enthesophyte at the site of the Achilles tendon insertion. No radiopaque foreign body. IMPRESSION: 1. Subtle lucency identified along the posterior margin of the distal left fibula on the lateral image. This may represent a projectional finding. A subtle nondisplaced fracture is not entirely excluded. Recommend clinical correlation with any focal point tenderness at this site for further evaluation. No other radiographic evidence for an acute fracture or dislocation injury identified at the left tibia or left fibula. This document has been electronically signed by: Kaden Garcia MD on 05/29/2024 01:29:58
--- NOTE | ~2024-05-28 | CT_ITS ---
CLINICAL HISTORY: trauma, gastroc tear? Examination: Contrast-enhanced CT of the left lower extremity from the knee through the ankle. Indication: Trauma Comparison: None Findings: Reference axial images 68 -76, there is a small defect within the soleus muscle and a blush of contrast within this, axial 71 and 72. The Achilles tendon appears intact. Mild degenerative changes of the knee and moderate degenerative change of the ankle noted. No fracture or acute malalignment. Impression: There is the suggestion of a small tear within the soleus muscle as well as a blush of contrast within this, likely reflecting a developing hematoma. This hematoma could be reimaged by ultrasound if the edema is increasing. This document has been electronically signed by: Tom Noguera MD on 05/29/2024 05:02:32
[2024-05-28 23:37] VITALS: BP 156/117; PULSE 98; RESP 18; TEMP 37.2; O2SAT 100; BMI 28.5
--- OUTSIDE RECORDS SUMMARY | 2024-05-29 00:32 | XMS_ITS ---
Author Organization [facility] Address [address] [place] [address] Care Team Providers Care Financial Health Counselor Name Role Phone Casey Marroquin Primary Care Provider Sinai Jacobson Unavailable [phone] REASON FOR VISIT Lab results Encounters Encounter Location Date Provider Diagnosis [facility] [address] [place] [address] 05/10/2024 Sinai Jacobson Plan Of Treatment Next Appt Details Provider Name:Sinai Jacobson , 08/15/2024 09:30:00 AM, [address] [place], [address], Progress Notes * Aguilar ESPITIADanielOB: 7 (48 yo M)Acc No.[id number]:05/10/2024 Patient:?Doc ESPITIA :1975???Age:48 Y???Sex:Male Address:[address] [place] [address] [place], [address] * true * Date:? Generated for Brennen faye/Timur/eTransmitting on:?05/29/2024 12:32 AM EDT
--- OUTSIDE RECORDS SUMMARY | 2024-05-29 00:33 | XMS_ITS | Data Portability ---
Author Organization [facility] Address [address] [place] [address] Assessment No assessment recorded. Plan of Treatment Reminders Order Date Submit Date Provider Last Modified By Organization Details Last Modified Time Details Appointments None recorded. Lab rapid SARS CoV 2 Ag, QL IA, respiratory specimen [address] [place] [address], [address] [place] [address], [phone], 3 11:48:05 Referral None recorded. Procedures None recorded. Surgeries None recorded. Imaging None recorded. Medication Orders None recorded. Patient TargetsNo targets recorded. Patient Instructions Encounter Date Encounter Id Patient Instructions Last Modified By Organization Details Last Modified Time 03/29/2022 [id number] You have been Diagnosed with COVID - [...] this over a decongestant. 3. Saline Nasal Cecil 4. Salt Water Gargles. I would be [...] AND HUMAN SERVICES Thank you for visiting [facility] today, please feel free to call our office you have any questions or concerns. Not available 03/29/2022 11:48:00 Reason for Referral None Reported. Results Created Date Observation Date Name Description Value Unit Range Abnormal Flag Note LastModifiedBy Organization Detail LastModifiedTime Result Notes None recorded. Problems Name Problem SNOMED Code Status Onset Date Resolution Date Notes Provider Name and Address Organization Details Recorded Time Hyperlipidemia 57085947 Active 2022 [facility] 3 11:43:27 Asthma 303213125 Active 2022 [facility] 3 11:43:32 [...] Updated DateTime 3 162.56 cm 26.6 kg/m2 98336.8 2 g 0 99 % 99 % 90 /min 18 /min 98.5 [degF] 127 mm[Hg] 82 mm[Hg] [facility] 3 11:42:24 Social History Question Answer Notes LastModified by Organizat ion Details LastModified Time Tobacco Smoking Status Former Smoker [facility] 03/29/2022 11:44:03 What Is Your Level Of Alcohol Consumption? None [email or web address] Information not available 03/29/2022 Do You Or Have You Ever Used E-cigarettes Or Vape? Current User Of Electronic Cigarettes [email or web address] Information not available 03/29/2022 Do You Use Any Illicit Or Recreational Drugs? No [email or web address] Information not available 03/29/2022 Have You Recently Traveled Abroad? No [email or web address] Information not available 03/29/2022 Do You Or Have You Ever Used Any Other Forms Of Tobacco Or Nicotine? Yes [email or web address] Information not available 03/29/2022 Sex: Unknown Functional Status None recorded. Mental Status None recorded. Family History Relationship Description Onset Age of this Age Resolved Age Notes LastModified by Organization Details LastModified Time Father No current problems or disability [email or web address] Not available 03/29 11:43:37 Mother No current problems or disability [email or web address] Not available 03/29 11:43:37 Medical History No medical history recorded. Past Encounters Encounter ID Performer Location Encounter Start Date Encounter Closed Date Diagnosis/Indication Diagnosis SNOMED-CT Code Diagnosis ICD10 Code Diagnosis Note [id number] [address] [place] [address] 04/29/2015 17:30:19 04/29/2015 18:43:52 [id number] [address] [place] [address] 03/21/2015 19:49:48 03/21/2015 20:06:19 [id number] [address] [place] [address] 07/06/2016 14:12:16 07/06/2016 15:18:51 [id number] [facility] [address] [place] [address] 03/29/2022 11:08:19 03/29/2022 11:59:32 COVID-19 774645377 U07.1 Health Concerns Section Related Observation LastModified by Organization Detai ls LastModified Time None Recorded Concern Status LastModified by Organization Details LastModified Time None Recorded Advance Directives Directive None Recorded Payers Encounter Date Sequence Insurance Name Policy Number Policy Grace Covered Member ID Grace Member ID Guarantor Name 07/06/2016 1 [employer] (POS) [id number] Doc Quintanilla [id number] Doc Quintanilla 03/29/2022 1 [facility] [id number] Docgustavo Hernandez[place] [id number] Doc [place] Notes Date Note Type Note Provider Name [...] No history of COVID. Vaccinated. RENEE MORENO [facility], [facility]–[place], [address], [place] - [facility] 03/29/2022 11:58:00
--- OUTSIDE RECORDS SUMMARY | 2024-05-29 00:33 | XMS_ITS | Patient Health Record ---
Author Organization [facility] Sasha nunu [place] Address [address] [place] [address] Care Team Providers Care Manager E Commerce Name Role Phone LopezCasey fenton Primary Care Provider [phone] Black, Sinia Unavailable [phone] Allergies No Known Allergies Reason For Referral [...] 05/09/2024 Encounters Encounter Location Date Provider Diagnosis [facility] [address] [place] [address] 05/09/2024 Sinai Black Pain in right toe(s) M79.674 ; Onychomycosis B35.1 and Pain in left toe(s) M79.675 [facility] [address] [place] [address] 05/10/2024 Sinai Jacobson Assessments Encounter Date Diagnosis (ICD Code) Assessment Notes Treatment Notes Treatment Clinical Notes Section Notes 05/09/2024 Pain in right toe(s) (ICD-10 - M79.674) 05/09/2024 Onychomycosis (ICD-10 - B35.1) 05/09/2024 Pain in left toe(s) (ICD-10 - M79.675) Plan Of Treatment Pending Test Test Name Order Date *Liver Function Test (LFT) 05/09/2024 Next Appt Details Provider Name:Sinai Jacobson , 08/15/2024 09:30:00 AM, [address] [place] [address], [phone], Insurance Providers Payer Name Payer Address Payer Phone Subscriber Number Group Number Insured Name Patient Relationship to Insured Coverage Start Date Coverage End Date [employer] [address] [place] [address] [id number] Doc Quintanilla Self - patient is the insured Medical (General) History Medical History History ICD Code Anxiety asthma covid-19 Depression Chicken pox Diverticulosis Surgical History Surgery Date(Month/Year) colonoscopy
--- OUTSIDE RECORDS SUMMARY | 2024-05-29 00:35 | XMS_ITS ---
Author Organization [facility] Dolores eddy [place] Address [address] [place] [address] Care Team Providers Care Bias Cutting Machine Operator Vertical Name Role Phone Casey Marroquin Primary Care Provider Black, Sinai Unavailable [phone] Allergies No Known Allergies REASON FOR VISIT [...] 025 Encounters Encounter Location Date Provider Diagnosis [facility] [address] [place] [address] 05/09/2024 Sinai Black Pain in right toe(s) [...] Provider Name:Sinai Jacobson , 08/15/2024 09:30:00 AM, [address] [place] [address], [phone], Progress Notes * Aguilar ESPITIADanielOB: 7 (48 yo M)Acc No.[id number]:05/09/2024 Progress Notes Patient:?Doc ESPITIA Provider:?Sinai Jacobson DPM :1975???Age:48 Y???Sex:Male Nirmal e:05/09/2024 Address:[address] [place], [place] [id number] Pcp:Casey Marroquin Subjective: * Chief Complaints: * [...] yes. ?Exercise: no. ?Marital status: . ?Occupation: [employer]. ???Drug/Alcohol:?AUDIT-C (Standard)?Did you have a drink [...] Jacobson DPM Date:?2024 Generated for Maynori yunier/Adrianeg/eTransmitting on:?05/29/2024 12:34 AM EDT History and Physical Notes * [...]
[2024-05-29] MEDS: Ketorolac Tromethamine 15 MG/ML VIAL IVPUSH (02:35)
[2024-05-29 02:54] LABS: Basophils Percent Auto 0.3 % (0-2); Eosinophils Absolute Auto 0.2 X10*3/uL (0.0-0.4); Eosinophils Percent Auto 2.2 % (0-4); Hematocrit 34.5 % (42.0-52.0); Hemoglobin 12.3 g/dl (14.0-18.0); Imm Gran Abs Auto 0.03 X10*3/uL (0.00-0.03); Imm Gran Pct Auto 0.4 % (0.0-0.4); Lymphocytes Absolute Auto 1.9 X10*3/uL (1.2-4.9); Lymphocytes Percent Auto 26.3 % (20-40); MANUAL DIFF FLAG NO; Mean Corpuscular HGB Conc 35.7 g/dl (31.0-36.0); Mean Corpuscular Hemoglobin 27.6 pg (27.0-33.0); Mean Corpuscular Volume 77.5 fL (80.0-98.0); Mean Platelet Volume 9.8 fL (9.4-12.4); Monocytes Absolute Auto 0.6 X10*3/uL (0.1-1.2); Monocytes Percent Auto 8.6 % (2-11); Neutrophils Absolute Auto 4.5 x10*3/uL (2.0-8.3); Neutrophils Percent Auto 62.2 % (45-73); Platelet Count 246 X10*3/uL (160-400); Red Blood Count 4.45 X10*6/uL (4.60-5.80); White Blood Count 7.2 X10*3/uL (4.8-10.8)
[2024-05-29 03:07] LABS: Anion Gap 15 (12-20); Blood Urea Nitrogen 12 mg/dL (9-16); Carbon Dioxide 25 mmol/L (22-29); Chloride 102 mmol/L (96-108); Creatinine Clr Calc Pharmacy 98.5; Estimated Glomerular Filt Rate > 60; Glucose Random 119 mg/dL (60-115); Potassium 4.2 mmol/L (3.3-5.1); Sodium 138 mmol/L (135-145)
[2024-05-29] MEDS: iohexoL 350 MG/ML 100 ML INFUS..BTL 85 ML IV (03:35)
--- NOTE | 2024-05-29 04:38 | ED_ITS ---
HPI - General Adult General Chief complaint: Extremity Injury, Lower Stated complaint: lower left leg injury Time Seen by Provider: 05/29/24 02:09 Source: patient Limitations: no limitations History of Present Illness ED Provider: Meredith Ramos PA-C HPI narrative: 48-year-old male presents with left lower extremity pain. Patient states he was stepping off a machine at work, he stepped off from a significant height, when he landed, he felt a pop in the left calf. Patient was ambulatory, however the calf is swollen and painful. Related Data Previous Rx's ?Medication ?Instructions ?Recorded pantoprazole 40 mg tablet,delayed 40 mg PO DAILY #90 tabs 02/07/24 release atorvastatin 10 mg tablet 10 mg PO BEDTIME #90 tabs 04/11/24 lisinopril 10 mg tablet 10 mg PO DAILY #90 tabs 05/24/24 ketorolac 10 mg tablet 10 mg PO Q6H PRN pain #20 tabs 05/29/24 methocarbamol 750 mg tablet 1,500 mg (2 x 750 mg) PO Q8H PRN 05/29/24 pain, moderate #30 tabs Allergies Allergy/AdvReac Type Severity Reaction Status Date / Time No Known Allergies Allergy Verified 05/28/24 23:46 Review of Systems 2 Review of Systems: Yes all other systems are reviewed and are negative Constitutional: Constitutional: Denies fatigue and Denies fever(s) Musculoskeletal: Musculoskeletal: Denies arthralgias, Denies joint swelling and Reports muscle cramps Endocrine: Endocrine: Denies fatigue PMFSH Past Medical History Attestation statement: The following information was validated with the patient. Medical History (Updated 05/29/24 @ 05:12 by RENEE Winchester) Overweight with body mass index (BMI) of 28 to 28.9 in adult Depression Pure hypercholesterolemia, unspecified Hyperlipidemia LDL goal <100 Hypertension Diverticulosis GERD (gastroesophageal reflux disease) Borderline hypercholesterolemia Tinea versicolor Male pattern baldness Surgical History History of colonoscopy with polypectomy (04/29/24) [place] teeth extracted Family History Family History Mother No problems noted. Father No problems noted. Maternal Uncle Colon cancer Other Mental health disorder Substance use disorder Social History Social History Housing: Apartment Are you a primary memory care program director to a significant other at home: No Do you presently have visiting nurse or other home services: No Alcohol intake: former Year quit: 3 y Patient Tobacco Use Status: Never used Tobacco Smoked in Last 30 Days: No e-Cigarette/Vaping Use: Currently Using Second Hand Smoke Exposure: Yes Use of substances other than those prescribed or required for medical reasons: No Advance Directives: No Do you have a plan to hurt others: No Plan service: No Current occupational status: employed Current occupational exposures/hazards: No Cognitive needs: No Hearing needs: No Vision needs: No Physical Exam ED Vital Signs: Vital Signs - 24 hr 05/28/24 23:37 05/29/24 05:06 Temperature 99 F 98.8 F Pulse Rate 98 87 Respiratory Rate 18 18 Blood Pressure 156/117 H 162/110 H Pulse Oximetry 100 100 Oxygen Delivery Method Room Air Room Air BMI result Body Mass Index 28.5 Const Other: Alert Orientation/consciousness: patient oriented x3 Resp Effort & Inspection: normal respiratory effort Cardio Other: Normal peripheral perfusion Skin Other: Warm dry no rash Neuro Other: Ambulates with a antalgic gait General: patient oriented x3, no focal motor deficits and CN's II-XI intact bilaterally Extrem Other: Swelling over left calf, there was no defect noted over Achilles, patient was able to stand on tiptoes, although it is painful, Psych Other: Cooperative Medications Administered Discontinued Medications Generic Name Dose Route Start Last Admin Trade Name Gigi PRN Reason Stop Dose Admin Iohexol 85 ml 05/29/24 03:34 05/29/24 03:35 Iohexol 350 Mg/Ml 100 Ml Infus..Btl IV 05/29/24 03:35 85 ml ONCE ONE Administration Ketorolac Tromethamine 15 mg 05/29/24 02:24 05/29/24 02:35 Ketorolac Tromethamine 15 Mg/Ml Vial IVPUSH 05/29/24 02:25 15 mg ONCE ONE Administration Procedures Orthopedic Splinting/Casting Injury #1: Side: left Lower Extremity Immobilizer: posterior splint Other Orthopedic Equipment: crutches Medical Decision Making Medical Decision Making MDM Narrative: 48-year-old male presents with left lower extremity pain. Patient states he was stepping off a machine at work, he stepped off from a significant height, when he landed, he felt a pop in the left calf. Patient was ambulatory, however the calf is swollen and painful. No chronic issues that are relevant History: Per patient I have considered the following differential diagnoses: Fracture, dislocation, contusion, sprain, gastroc tear, Achilles rupture Plan: X-ray ordered from triage there was no fracture or dislocation. I am concerned for gastroc tear. Less concern for Achilles rupture, there was no palpable defect and he can stand on his Tippy toes. He is declining anything other than Toradol for pain. We will obtain a CT scan. I have independently reviewed the following tests: X-ray left tib-fib : IMPRESSION: 1. Subtle lucency identified along the posterior margin of the distal left fibula on the lateral image. This may represent a projectional finding. A subtle nondisplaced fracture is not entirely excluded. Recommend clinical correlation with any focal point tenderness at this site for further evaluation. No other radiographic evidence for an acute fracture or dislocation injury identified at the left tibia or left fibula. CT left lower extremity:Impression: There is the suggestion of a small tear within the soleus muscle as well as a blush of contrast within this, likely reflecting a developing hematoma. This hematoma could be reimaged by ultrasound if the edema is increasing. Lab Data 05/29/24 02:48 05/29/24 02:48 Labs: Lab Results 05/29/24 Range/Units 02:48 WBC 7.2 (4.8-10.8) X10*3/uL RBC 4.45 L (4.60-5.80) X10*6/uL Hgb 12.3 L (14.0-18.0) g/dl Hct 34.5 L D (42.0-52.0) % MCV 77.5 L (80.0-98.0) fL MCH 27.6 (27.0-33.0) pg MCHC 35.7 (31.0-36.0) g/dl RDW 14.0 (11.0-16.0) % Plt Count 246 (160-400) X10*3/uL MPV 9.8 (9.4-12.4) fL Immature Gran % (Auto) 0.4 (0.0-0.4) % Neut % (Auto) 62.2 (45-73) % Lymph % (Auto) 26.3 (20-40) % Amelia % (Auto) 8.6 (2-11) % Eos % (Auto) 2.2 (0-4) % Baso % (Auto) 0.3 (0-2) % Lymph # (Auto) 1.9 (1.2-4.9) X10*3/uL Amelia # (Auto) 0.6 (0.1-1.2) X10*3/uL Eos # (Auto) 0.2 (0.0-0.4) X10*3/uL Baso # (Auto) 0.0 (0.0-0.2) X10*3/uL Abs Immat Gran (auto) 0.03 (0.00-0.03) X10*3/uL Absolute Neuts (auto) 4.5 (2.0-8.3) x10*3/uL Absolute Nucleated RBC 0.000 (0.0-0.012) X10*3/uL Nucleated RBC % (auto) 0.0 (0.0-0.2) /100WBC Sodium 138 (135-145) mmol/L Potassium 4.2 (3.3-5.1) mmol/L Chloride 102 (96-108) mmol/L Carbon Dioxide 25 (22-29) mmol/L Anion Gap 15 (12-20) BUN 12 (9-16) mg/dL Creatinine 0.86 (0.5-1.4) mg/dL Estim Creat Clear Calc 98.5 Estimated GFR > 60 Random Glucose 119 H (60-115) mg/dL Calcium 10.0 (8.4-10.2) mg/dL Discharge Plan Discharge Clinical Impression: Strain of left soleus muscle Patient Disposition: Home, Self-Care Instructions: R.I.C.E. Treatment (ED) Additional Instructions: You have a partial tear of the soleus muscle. Keep the splint in place until you follow up with the orthopedic service. Ice the area several times a day. Use the crutches to ambulate. Use the ketorolac as directed, this is an anti- inflammatory, take it with food. Use the methocarbamol as needed for further pain, this is a muscle relaxant. It will cause drowsiness, do not drive or operate machinery while taking the medication. Prescriptions: New ketorolac 10 mg tablet 10 mg PO Q6H PRN (Reason: pain) Qty: 20 0RF Rx Instructions: maximum total duration of 5 days from all oral, intranasal, or parenteral formulations. The patient received an IV dose of Toradol here in the emergency department. methocarbamol 750 mg tablet 1,500 mg PO Q8H PRN (Reason: pain, moderate) Qty: 30 0RF No Action atorvastatin 10 mg tablet 10 mg PO BEDTIME Qty: 90 1RF pantoprazole 40 mg tablet,delayed release (DR/EC) 40 mg PO DAILY Qty: 90 1RF lisinopril 10 mg tablet 10 mg PO DAILY Qty: 90 1RF Stand Alone Forms: Work/School Release Print Language: Botswanan
[2024-05-29 05:06] VITALS: BP 162/110; PULSE 87; RESP 18; TEMP 37.1; O2SAT 100
[2024-05-29] MEDS: methocarbamoL 750 MG TABLET 1500 MG PO (05:33)
[2024-05-29 05:46] VITALS: BP 162/110; PULSE 87; RESP 18; TEMP 37.1; O2SAT 100
== END 2024-05-29 05:47 | disposition home or self-care (01) ==
PROVIDERS: Physician Assistant Medical; Emergency Provider Emergency Medicine; PCP Internal Medicine
DX: S86.912A Strain of unspecified muscle(s) and tendon(s) at lower leg level, left leg, initial encounter (principal); M79.605 Pain in left leg; R60.0 Localized edema; Y29.XXXA Contact with blunt object, undetermined intent, initial encounter; Y93.9 Activity, unspecified; Y92.9 Unspecified place or not applicable; Y99.0 Civilian activity done for income or pay; Z79.899 Other long term (current) drug therapy
CPT/HCPCS: 36415; 73590; 73701; 80048; 85025; 96374; 99284; J1885; Q9967

== ENCOUNTER → 2024-05-29 00:03 | Outpatient (BNV) | payer OTHER, SELFPAY | PROVIDERS: PCP Internal Medicine; Visit Provider Radiology Diagnostic Radiology | DX: S89.92XA Unspecified injury of left lower leg, initial encounter (principal); M79.662 Pain in left lower leg | CPT/HCPCS: 73590; 73701 ==

== ENCOUNTER 2024-06-04 11:27 | Outpatient (REF) | payer OTHER, SELFPAY ==
[2024-05-20 16:19] LABS: Calprotectin, Fecal 6800 mcg/g
--- NOTE | ~2024-06-04 | CT_ITS ---
EXAMINATION: CT ABDOMEN PELVIS WITH IV CONTRAST HISTORY: R10.9 - Unspecified abdominal pain COMPARISON: Comparison is made with the prior examination dated 05/21/2019. TECHNIQUE: CT scan of the abdomen and pelvis was performed following administration of 85 mL Omnipaque 350 using standard departmental protocol. Coronal and sagittal reformatted images were generated and reviewed. The patient received oral contrast material. This CT exam was performed with one or more of the following dose reduction techniques: automated exposure control, adjustment of the mA and/or kV according to patient size, use of iterative reconstruction technique. DLP: 376 mGy-cm FINDINGS: LOWER CHEST: The visualized lung bases are clear. There is no pleural effusion. CARDIOVASCULATURE: The heart is normal in size. There is no pericardial effusion. LIVER: The liver is normal in size and contour. No liver mass is identified. The hepatic and portal veins are patent. GALLBLADDER / BILE DUCTS: The gallbladder is unremarkable. There is no intra or extrahepatic biliary ductal dilatation. SPLEEN: The spleen is normal in size. No focal splenic lesion is identified. PANCREAS: The pancreas is unremarkable in appearance. ADRENAL GLANDS: Within normal limits. KIDNEYS/RETROPERITONEUM: No renal calculi are identified. There is no hydronephrosis. No renal masses are identified. LYMPH NODES: No para-aortic or iliac lymphadenopathy. VASCULATURE: The abdominal aorta is normal in caliber. MESENTERY/PERITONEUM: No free fluid. No masses. There is no free intraperitoneal gas. STOMACH: The stomach is collapsed, limiting evaluation. SMALL BOWEL: The small bowel is normal in caliber. COLON: There is extensive diverticulosis of the colon, most prominently involving the sigmoid colon. There is moderate to marked wall thickening of the sigmoid colon. Adjacent lymph nodes are seen measuring up to 1.6 cm in diameter. APPENDIX: Normal. URINARY BLADDER/PELVIC ORGANS: The urinary bladder is collapsed, limiting evaluation. The prostate is normal in size. BONES / SOFT TISSUES: No suspicious bony or soft tissue abnormalities. CT/CT abdomen pelvis w IV con IMPRESSION: Diffuse diverticulosis of the colon. Moderate to marked wall thickening of the sigmoid colon with adjacent enlarged lymph nodes. While the wall thickening may be secondary to chronic diverticular disease, neoplasm is not excluded. Clinical correlation is recommended. Electronically signed by: Michele Walker MD 06/04/2024 02:50 PM EDT RP
--- OUTSIDE RECORDS SUMMARY | 2024-06-04 14:13 | XMS_ITS ---
Author Organization [facility] Address [address] [place] [address] Care Team Providers Care Counseling Services Manager Name Role Phone Casey Marroquin Primary Care Provider Sinai Jacobson Unavailable [phone] REASON FOR VISIT Lab results Encounters Encounter Location Date Provider Diagnosis [facility] [address] [place] [address] 05/10/2024 Sinai Jacobson Plan Of Treatment Next Appt Details Provider Name:Sinai Jacobson , 08/15/2024 09:30:00 AM, [address] [place], [address], Progress Notes * Aguilar ESPITIADanielOB: 7 (48 yo M)Acc No.[id number]:05/10/2024 Patient:?Doc ESPITIA :1975???Age:48 Y???Sex:Male Address:[address] [place] [address] [place], [address] * true * Date:? Generated for Brennen faye/Timur/eTransmitting on:?06/04/2024 02:13 PM EDT
--- OUTSIDE RECORDS SUMMARY | 2024-06-04 14:14 | XMS_ITS | Data Portability ---
Author Organization [facility] Address [address] [place] [address] Assessment No assessment recorded. Plan of Treatment Reminders Order Date Submit Date Provider Last Modified By Organization Details Last Modified Time Details Appointments None recorded. Lab rapid SARS CoV 2 Ag, QL IA, respiratory specimen 20[email or web address] [place] [address], [address] [place] [address], [id number], 3 11:48:05 Referral None recorded. Procedures None recorded. Surgeries None recorded. Imaging None recorded. Medication Orders None recorded. Patient TargetsNo targets recorded. Patient Instructions Encounter Date Encounter Id Patient Instructions Last Modified By Organization Details Last Modified Time 03/29/2022 [id number] You have been Diagnosed with COVID - [...] this over a decongestant. 3. Saline Nasal [place] 4. Salt Water Gargles. I would be [...] AND HUMAN SERVICES Thank you for visiting [facility] today, please feel free to call our office you have any questions or concerns. [email or web address] Not available 03/29/2022 11:48:00 Reason for Referral None Reported. Results Created Date Observation Date Name Description Value Unit Range Abnormal Flag Note LastModifiedBy Organization Detail LastModifiedTime Result Notes None recorded. Problems Name Problem SNOMED Code Status Onset Date Resolution Date Notes Provider Name and Address Organization Details Recorded Time Hyperlipidemia 23808705 Active 2022 [facility] 3 11:43:27 Asthma 311774665 Active 2022 [facility] 3 11:43:32 [...] Updated DateTime 3 162.56 cm 26.6 kg/m2 36718.8 2 g 0 99 % 99 % 90 /min 18 /min 98.5 [degF] 127 mm[Hg] 82 mm[Hg] [facility] 3 11:42:24 Social History Question Answer Notes LastModified by Organizat ion Details LastModified Time Tobacco Smoking Status Former Smoker [facility] 03/29/2022 11:44:03 What Is Your Level Of Alcohol Consumption? None [email or web address] Information not available 03/29/2022 Do You Or Have You Ever Used E-cigarettes Or Vape? Current User Of Electronic Cigarettes [email or web address] Information not available 03/29/2022 Do You Use Any Illicit Or Recreational Drugs? No [email or web address] Information not available 03/29/2022 Have You Recently Traveled Abroad? No [email or web address] Information not available 03/29/2022 Do You Or Have You Ever Used Any Other Forms Of Tobacco Or Nicotine? Yes [email or web address] Information not available 03/29/2022 Sex: Unknown Functional Status None recorded. Mental Status None recorded. Family History Relationship Description Onset Age of this Age Resolved Age Notes LastModified by Organization Details LastModified Time Father No current problems or disability [email or web address] Not available 03/29 11:43:37 Mother No current problems or disability [email or web address] Not available 03/29 11:43:37 Medical History No medical history recorded. Past Encounters Encounter ID Performer Location Encounter Start Date Encounter Closed Date Diagnosis/Indication Diagnosis SNOMED-CT Code Diagnosis ICD10 Code Diagnosis Note [id number] [address] [place] [address] 04/29/2015 17:30:19 04/29/2015 18:43:52 [id number] [address] [place] [address] 03/21/2015 19:49:48 03/21/2015 20:06:19 [id number] [address] [place] [address] 07/06/2016 14:12:16 07/06/2016 15:18:51 [id number] RENEE MORENO [address] [place] [address] 03/29/2022 11:08:19 03/29/2022 11:59:32 COVID-19 752692331 U07.1 Health Concerns Section Related Observation LastModified by Organization Detai ls LastModified Time None Recorded Concern Status LastModified by Organization Details LastModified Time None Recorded Advance Directives Directive None Recorded Payers Encounter Date Sequence Insurance Name Policy Number Policy Grace Covered Member ID Grace Member ID Guarantor Name 07/06/2016 1 [employer] (POS) [id number] Doc Quintanilla [id number] Doc Quintanilla 03/29/2022 1 [facility] [id number] Docgustavo HernandezPullman [id number] Doc Pullman Notes Date Note Type Note Provider Name [...] No history of COVID. Vaccinated. RENEE MORENO [facility] [place], [address], [place] - [facility] 03/29/2022 11:58:00
--- OUTSIDE RECORDS SUMMARY | 2024-06-04 14:14 | XMS_ITS | Patient Health Record ---
Author Organization [facility] S[facility] [place] Address [address] [place] [address] Care Team Providers Care Metal Tank Builder Name Role Phone LopezCasey fenton Primary Care Provider Black, Sinai Unavailable [phone] Allergies No Known Allergies Reason For Referral [...] 05/09/2024 Encounters Encounter Location Date Provider Diagnosis [facility] [address] [place] [address] 05/09/2024 Sinai Black Pain in right toe(s) M79.674 ; Onychomycosis B35.1 and Pain in left toe(s) M79.675 [facility] [place] [place] [address] [place] [address] 05/10/2024 Sinai Jacobson Assessments Encounter Date Diagnosis (ICD Code) Assessment Notes Treatment Notes Treatment Clinical Notes Section Notes 05/09/2024 Pain in right toe(s) (ICD-10 - M79.674) 05/09/2024 Onychomycosis (ICD-10 - B35.1) 05/09/2024 Pain in left toe(s) (ICD-10 - M79.675) Plan Of Treatment Pending Test Test Name Order Date *Liver Function Test (LFT) 05/09/2024 Next Appt Details Provider Name:Sinai Jacobson , 08/15/2024 09:30:00 AM, [address] [place] [address], [phone], Insurance Providers Payer Name Payer Address Payer Phone Subscriber Number Group Number Insured Name Patient Relationship to Insured Coverage Start Date Coverage End Date [employer] [address] [place] [address] [id number] Doc Quintanilla Self - patient is the insured Medical (General) History Medical History History ICD Code Anxiety asthma covid-19 Depression Chicken pox Diverticulosis Surgical History Surgery Date(Month/Year) colonoscopy
--- OUTSIDE RECORDS SUMMARY | 2024-06-04 14:14 | XMS_ITS ---
[facility] Address [address] [place] [address] Care Team Providers Care Batter Mixer Helper Name Role Phone Casey Marroquin Primary Care Provider Black, Sinai Unavailable [phone] Allergies No Known Allergies REASON FOR VISIT [...] 025 Encounters Encounter Location Date Provider Diagnosis [facility] [address] [place] [address] 05/09/2024 Sinai Black Pain in right toe(s) [...] Provider Name:Sinai Jacobson , 08/15/2024 09:30:00 AM, [address] [place] [address], [phone], Progress Notes * Aguilar ESPITIADanielOB: 7 (48 yo M)Acc No.[id number]:05/09/2024 Progress Notes Patient:?Doc ESPITIA Provider:?Sinai Jacobson DPM :1975???Age:48 Y???Sex:Male Nirmal e:05/09/2024 Address:[address] [place], [place] [id number] Pcp:Casey Marroquin Subjective: * Chief Complaints: * [...] yes. ?Exercise: no. ?Marital status: . ?Occupation: [employer]. ???Drug/Alcohol:?AUDIT-C (Standard)?Did you have a drink [...] Provider:Saul Jacobson DPM Date:?2024 Generated for Maynori yunier/Farong/eTransmitting on:?06/04/2024 02:13 PM EDT History and Physical Notes * HPI [...]
[2024-06-04] MEDS: Barium Sulfate Oral (Mocha) 450 ML ORAL.SUSP PO ×2 (14:36→14:37)
[2024-06-04] MEDS: iohexoL 350 MG/ML 100 ML INFUS..BTL IV (14:36)
== END 2024-06-04 11:28 | disposition home or self-care (01) ==
LOC: HO.CT 11:27
PROVIDERS: PCP Internal Medicine; Visit Provider Nurse Practitioner Family
DX: R15.9 Full incontinence of feces (principal); K50.10 Crohn's disease of large intestine without complications; K57.30 Diverticulosis of large intestine without perforation or abscess without bleeding; R10.32 Left lower quadrant pain
CPT/HCPCS: 74177; 83993; Q9967

== ENCOUNTER → 2024-06-04 11:30 | Outpatient (BNV) | payer OTHER, SELFPAY | PROVIDERS: PCP Internal Medicine; Visit Provider Radiology Diagnostic Radiology | DX: K57.30 Diverticulosis of large intestine without perforation or abscess without bleeding (principal); R59.1 Generalized enlarged lymph nodes | CPT/HCPCS: 74177 ==

== ENCOUNTER 2024-06-04 14:25 | Outpatient (AMB) | payer OTHER, SELFPAY ==
--- NOTE | 2024-06-04 14:41 | MHC.OFFVIS ---
Vital Signs 06/04/24 14:42 Height 5 ft 4 in Weight 165 lb BMI 28.3 Handedness Left Intake Visit Reasons: ER - LT calf strain vs achilles injury DOI:05/28/24 Intake Note: Doc is a 48 year old male who presents today with a posterior splint with crutches for a evaluation of his left Achilles/calf injury, DOI 05/28/24. Patient states he was stepping off a machine at work, he stepped off from a significant height, when he landed, he felt a pop in the left calf. Patient reports he is feeling a little. He mentions having off and on sharp pain. Allergies No Known Allergies Allergy (Verified 06/04/24 14:42) HPI HPI ER - LT calf strain vs achilles injury DOI:05/28/24: Details: The patient is a 48-year-old male presenting with complaints relating to a left lower leg injury sustained when he stepped off a machine 05/28/24, resulting in a popping sensation that he described as tendon snapping in the back of the lower leg. He presented to the emergency department where a CT was obtained and confirmed to be a partial tear of the soleus muscle with an associated hematoma. He was placed into a posterior splint and provided with crutches. He was strictly follow up with orthopedics outpatient for further evaluation and treatment. [facility] Medical History (Updated 05/30/24 @ 00:00 by Flako Torres) Overweight with body mass index (BMI) of 28 to 28.9 in adult Depression Pure hypercholesterolemia, unspecified Hyperlipidemia LDL goal <100 Hypertension Diverticulosis GERD (gastroesophageal reflux disease) Borderline hypercholesterolemia Tinea versicolor Male pattern baldness Surgical History History of colonoscopy with polypectomy (04/29/24) [place] teeth extracted Family History Mother No problems noted. Father No problems noted. Maternal Uncle Colon cancer Other Mental health disorder Substance use disorder Social History Housing: Apartment Are you a primary ambulatory care nurse to a significant other at home: No Do you presently have visiting nurse or other home services: No Alcohol intake: former Year quit: 3 y Patient Tobacco Use Status: Never used Tobacco e-Cigarette/Vaping Use: Currently Using Second Hand Smoke Exposure: Yes service: No Current occupational status: employed Current occupational exposures/hazards: No Cognitive needs: No Hearing needs: No Vision needs: No Review of Systems Const All systems reviewed & are unremarkable except as noted in HPI and below Physical Exam Vital Signs: BMI result Body Mass Index 28.3 Extrem Other: Left lower extremity splint clean dry and intact. Pain within the posterior aspect of the lower leg. Assessment & Plan Assessment & Plan (1) Strain of left soleus muscle: Code(s): S86.112A - Strain of other muscle(s) and tendon(s) of posterior muscle group at lower leg level, left leg, initial encounter Category: Medical Plan The patient is a 48-year-old male presenting with complaints relating to a left lower leg injury sustained when he stepped off a machine 05/28/24, resulting in a popping sensation that he described as tendon snapping in the back of the lower leg. He presented to the emergency department where a CT was obtained and confirmed to be a partial tear of the soleus muscle with an associated hematoma. He was placed into a posterior splint and provided with crutches. He was strictly follow up with orthopedics outpatient for further evaluation and treatment. While in the office today, the patient was provided with a tall walking boot off the shelf. He may begin to weightbear as tolerated with the use of crutches to assist with ambulation balance instability. He was given an out of work note until follow-up. We discussed the role of physical therapy in which he is agreeable to attend. He will follow up in 4 weeks, sooner if needed. CT scan obtained on 05/29/2024: Impression: There is the suggestion of a small tear within the soleus muscle as well as a blush of contrast within this, likely reflecting a developing hematoma. This hematoma could be reimaged by ultrasound if the edema is increasing. Coding Level of Care Code New Pt Level 3 (20102) Diagnoses Strain of left soleus muscle S86.112A
[2024-06-04 14:42] VITALS: BMI 28.3
== END 2024-06-04 15:39 | disposition home or self-care (01) ==
LOC: HO.HOS 14:25
PROVIDERS: PCP Internal Medicine; Visit Provider Physician Assistant
DX: S86.112A Strain of other muscle(s) and tendon(s) of posterior muscle group at lower leg level, left leg, initial encounter (principal)
CPT/HCPCS: 99203

== ENCOUNTER 2024-06-11 15:30 | Outpatient (AMB) | payer OTHER, SELFPAY ==
[2024-06-11 15:33] VITALS: BP 124/82; PULSE 96; O2SAT 97; BMI 28.5
--- NOTE | 2024-06-11 15:33 | A.OFFVIS_ITS ---
Vital Signs 06/11/24 15:33 Height 5 ft 4 in Weight 166 lb BMI 28.5 BP 124/82 Blood Pressure Location Rt brachial Position Sitting Pulse 96 Pulse Source Pulse Oximeter Pulse Oximetry (%) 97 Oxygen Delivery Method Room Air Intake Visit Reasons: f/u Intake Note: ESTABLISHED PATIENT for GERD + colitis mgmt. Discuss surgery questions. Chief Complaint; Pt denies any new sx or concerns. Pt would like to discuss details from recent phone call with Darby in greater detail. Nursing Assoc Required: No Accompanied by: Self / Same As Patient Allergies No Known Allergies Allergy (Verified 06/11/24 15:34) HPI HPI f/u: Details: LAST VISIT: Segmental colitis associated with diverticulosis GERD (gastroesophageal reflux disease) Diverticulosis Postprandial diarrhea Plan Will check CRP, fecal calprotectin. Patient will be sent for CT of abdomen and pelvis to re-evaluate area of colitis within the diverticulum of the sigmoid colon. Pending results patient might need to go for surgical consult for possible colon resection if diverticulosis is very severe. There was a significant luminar narrowing seen in sigmoid colon with severe diverticulosis and ulceration. Patient will finishes antibiotics and may advance his diet. He should continue low fiber diet at this time till he has a CT scan. Patient was encouraged to increase fluid intake and activity to promote better bowel motility. Follow-up appointment will be made pending results. Patient is agreeable to this plan and verbalizes understanding of instructions. He was given the opportunity to ask questions and all questions answered. ? Thank you for allowing me to participate in his care Orders Orders C Reactive Protein 05/13/24 K58.9 Calprotectin, Fecal 05/14/[address] abdomen pelvis w IV con 05/13/24 R10.9, K50.10, K57.30, R10.32 TODAY'S VISIT Patient is here today for follow-up and to discuss CT scan results. We have discussed the results as soon as we have received them. I spoke with patient jason sanchezly on the phone. Patient would like to have more detailed explanation. Diverticulosis and wall thickening seen. Patient was hoping that he might need a surgery. I have personally spoke to Dr. Holland who looked over the CT scan and not necessary to have a surgery. Patient's symptoms are improving. He denies melena, hematochezia. Denies any mucus in his stools. Still has some trouble moving his bowels. Currently he is taking Citrucel and senna. He is on mesalamine and is tolerating well. Patient reports that he is able to tolerate food. Denies any dyspepsia, dysphagia or odynophagia. Reports that dicyclomine works for him. He uses if needed only. Currently he is taking pantoprazole to help him with acid reflux which feels to be suppressing and he is asymptomatic this moment [facility] Medical History Overweight with body mass index (BMI) of 28 to 28.9 in adult Depression Pure hypercholesterolemia, unspecified Hyperlipidemia LDL goal <100 Hypertension Diverticulosis GERD (gastroesophageal reflux disease) Borderline hypercholesterolemia Tinea versicolor Male pattern baldness Surgical History History of colonoscopy with polypectomy (04/29/24) [place] teeth extracted Family History Mother No problems noted. Father No problems noted. Maternal Uncle Colon cancer Other Mental health disorder Substance use disorder Social History Housing: Apartment Are you a primary day care director to a significant other at home: No Do you presently have visiting nurse or other home services: No Alcohol intake: former Year quit: 3 y Patient Tobacco Use Status: Never used Tobacco e-Cigarette/Vaping Use: Currently Using Second Hand Smoke Exposure: Yes service: No Current occupational status: employed Current occupational exposures/hazards: No Cognitive needs: No Hearing needs: No Vision needs: No Review of Systems Const Denies weight gain and Denies weight loss ENT Reports no additional complaints, Denies dysphagia and Denies odynophagia Card Reports no additional complaints Resp Reports no additional complaints GI Denies abdominal pain, Denies belching, Denies melena, Denies bloating, Denies change in bowel habits, Reports GI cramping (Occasional), Denies dysphagia, Denies excessive flatus, Denies dyspepsia, Denies heartburn, Denies diarrhea, Denies loose stools, Denies nausea, Denies odynophagia and Denies vomiting Reports no additional complaints Musc Reports no additional complaints Neuro Reports no additional complaints Psych Reports no additional complaints Endo Reports no additional complaints Physical Exam Vital Signs: Last Vital Signs Pulse 96 06/11/24 15:33 BP 124/82 06/11/24 15:33 Pulse Ox 97 06/11/24 15:33 Oxygen Delivery Method Room Air 06/11/24 15:33 BMI result Body Mass Index 28.5 Const General: healthy appearing, no acute distress and well developed Nutritional Appearance: well nourished Orientation/consciousness: patient oriented x3 Resp Effort & Inspection: normal respiratory effort, able to speak in complete sentences, no tracheal deviation and symmetric chest movement Auscultation: clear to auscultation bilaterally Cardio Rate: regular rate GI Inspection: Yes normal to inspection and No distended Palpation (GI): Soft to palpation, not firm, nontender and No hepatosplenomegaly present Auscultation: normal bowel sounds General: Yes no CVA tenderness Back/Spine/Pelvis Back: no CVA tenderness Skin General skin exam: elasticity normal, turgor normal and dry skin Neuro General: patient oriented x3 Psych Appearance: grossly normal Mental Status: mental status grossly normal Results Reviewed Results Reviewed: Laboratory Tests 05/13/24 05/14/24 13:37 07:42 C-Reactive Protein 0.12 Stool Calprotectin [address] SCAN OF ABDOMEN AND PELVIS 06/04/2024 FINDINGS: LOWER CHEST: The visualized lung bases are clear. There is no pleural effusion. CARDIOVASCULATURE: The heart is normal in size. There is no pericardial effusion. LIVER: The liver is normal in size and contour. No liver mass is identified. The hepatic and portal veins are patent. GALLBLADDER / BILE DUCTS: The gallbladder is unremarkable. There is no intra or extrahepatic biliary ductal dilatation. SPLEEN: The spleen is normal in size. No focal splenic lesion is identified. PANCREAS: The pancreas is unremarkable in appearance. ADRENAL GLANDS: Within normal limits. KIDNEYS/RETROPERITONEUM: No renal calculi are identified. There is no hydronephrosis. No renal masses are identified. LYMPH NODES: No para-aortic or iliac lymphadenopathy. VASCULATURE: The abdominal aorta is normal in caliber. MESENTERY/PERITONEUM: No free fluid. No masses. There is no free intraperitoneal gas. STOMACH: The stomach is collapsed, limiting evaluation. SMALL BOWEL: The small bowel is normal in caliber. COLON: There is extensive diverticulosis of the colon, most prominently involving the sigmoid colon. There is moderate to marked wall thickening of the sigmoid colon. Adjacent lymph nodes are seen measuring up to 1.6 cm in diameter. APPENDIX: Normal. URINARY BLADDER/PELVIC ORGANS: The urinary bladder is collapsed, limiting evaluation. The prostate is normal in size. BONES / SOFT TISSUES: No suspicious bony or soft tissue abnormalities. CT/CT abdomen pelvis w IV con IMPRESSION: Diffuse diverticulosis of the colon. Moderate to marked wall thickening of the sigmoid colon with adjacent enlarged lymph nodes. While the wall thickening may be secondary to chronic diverticular disease, neoplasm is not excluded. Clinical correlation is recommended. Assessment & Plan Assessment & Plan (1) Segmental colitis associated with diverticulosis: Code(s): K50.10 - Crohn's disease of large intestine without complications; K57.30 - Diverticulosis of large intestine without perforation or abscess without bleeding Category: Medical (2) GERD (gastroesophageal reflux disease): Code(s): K21.9 - Gastro-esophageal reflux disease without esophagitis Category: Medical Qualifiers: Esophagitis presence: esophagitis presence not specified Qualified Code(s): K21.9 - Gastro-esophageal reflux disease without esophagitis (3) Diverticulosis: Code(s): K57.90 - Diverticulosis of intestine, part unspecified, without perforation or abscess without bleeding Category: Medical (4) Postprandial diarrhea: Code(s): K52.9 - Noninfective gastroenteritis and colitis, unspecified Plan Patient will continue mesalamine for now. Continue avoiding dietary triggers. Try fiber and making sure that he is moving his bowels without any issues. Increase fluid intake and activity to promote better bowel motility. Patient admits that he is feeling better dicyclomine works for pain. Stressed the importance of increasing fluid and activity to promote better bowel. Trying to avoid patient being backed up and constipated and dicyclomine can contribute to that. Patient will follow-up in 3 months, sooner on as needed basis. He is agreeable to this plan and verbalizes understanding of instructions. He was given the opportunity to ask questions and all questions answered. Thank you for allowing me to participate in his care Coding Level of Care Code Est Pt Level 4 (62941) Complex EM visit Add On G2211 Diagnoses Segmental colitis associated with diverticulosis K50.10; K57.30 Gastroesophageal reflux disease, unspecified whether esophagitis present K21.9 Esophagitis presence: esophagitis presence not specified Diverticulosis K57.90 Postprandial diarrhea K52.9 Time Spent (min) 40 Comment 25 minutes spent with patient and additional 15 minutes spent reviewing his records
--- OUTSIDE RECORDS SUMMARY | 2024-06-11 18:22 | XMS_ITS | Data Portability ---
Author Organization [facility], [address] Address [address] [place] [address] Assessment No assessment recorded. Plan of Treatment Reminders Order Date Submit Date Provider Last Modified By Organization Details Last Modified Time Details Appointments None recorded. Lab rapid SARS CoV 2 Ag, QL IA, respiratory specimen [address] [place] [address], [address] [place] [address], [id number], 3 11:48:05 Referral None recorded. Procedures None recorded. Surgeries None recorded. Imaging None recorded. Medication Orders None recorded. Patient TargetsNo targets recorded. Patient Instructions Encounter Date Encounter Id Patient Instructions Last Modified By Organization Details Last Modified Time 03/29/2022 [id number] You have been Diagnosed with COVID - [...] this over a decongestant. 3. Saline Nasal [place] 4. Salt Water Gargles. I would be [...] AND HUMAN SERVICES Thank you for visiting [facility] today, please feel free to call our office you have any questions or concerns. [email or web address] Not available 03/29/2022 11:48:00 Reason for Referral None Reported. Results Created Date Observation Date Name Description Value Unit Range Abnormal Flag Note LastModifiedBy Organization Detail LastModifiedTime Result Notes None recorded. Problems Name Problem SNOMED Code Status Onset Date Resolution Date Notes Provider Name and Address Organization Details Recorded Time Hyperlipidemia 95935635 Active 2022 [facility] 3 11:43:27 Asthma 190909871 Active 2022 [facility] 3 11:43:32 [...] Updated DateTime 3 162.56 cm 26.6 kg/m2 41079.8 2 g 0 99 % 99 % 90 /min 18 /min 98.5 [degF] 127 mm[Hg] 82 mm[Hg] [facility] 3 11:42:24 Social History Question Answer Notes LastModified by Organizat ion Details LastModified Time Tobacco Smoking Status Former Smoker [facility] 03/29/2022 11:44:03 What Is Your Level Of Alcohol Consumption? None [email or web address] Information not available 03/29/2022 Do You Or Have You Ever Used E-cigarettes Or Vape? Current User Of Electronic Cigarettes [email or web address] Information not available 03/29/2022 Do You Use Any Illicit Or Recreational Drugs? No [email or web address] Information not available 03/29/2022 Have You Recently Traveled Abroad? No [email or web address] Information not available 03/29/2022 Do You Or Have You Ever Used Any Other Forms Of Tobacco Or Nicotine? Yes [email or web address] Information not available 03/29/2022 Sex: Unknown Functional Status None recorded. Mental Status None recorded. Family History Relationship Description Onset Age of this Age Resolved Age Notes LastModified by Organization Details LastModified Time Father No current problems or disability [email or web address] Not available 03/29 11:43:37 Mother No current problems or disability [email or web address] Not available 03/29 11:43:37 Medical History No medical history recorded. Past Encounters Encounter ID Performer Location Encounter Start Date Encounter Closed Date Diagnosis/Indication Diagnosis SNOMED-CT Code Diagnosis ICD10 Code Diagnosis Note [id number] [address] [place] [address] 04/29/2015 17:30:19 04/29/2015 18:43:52 [id number] [address] [place] [address] 03/21/2015 19:49:48 03/21/2015 20:06:19 [id number] [address] [place] [address] 07/06/2016 14:12:16 07/06/2016 15:18:51 [id number] [facility] [address] [place] [address] 03/29/2022 11:08:19 03/29/2022 11:59:32 COVID-19 303031577 U07.1 Health Concerns Section Related Observation LastModified by Organization Detai ls LastModified Time None Recorded Concern Status LastModified by Organization Details LastModified Time None Recorded Advance Directives Directive None Recorded Payers Encounter Date Sequence Insurance Name Policy Number Policy Grace Covered Member ID Grace Member ID Guarantor Name 07/06/2016 1 [employer] (POS) [id number] Doc Quintanilla [id number] Doc Quintanilla 03/29/2022 1 [facility] [id number] Docgustavo HernandezSherman [id number] Doc Sherman Notes Date Note Type Note Provider Name [...] history of COVID. Vaccinated. RENEE MORENO [facility] [place], [address], [place] - [facility] 03/29/2022 11:58:00
--- OUTSIDE RECORDS SUMMARY | 2024-06-11 18:22 | XMS_ITS ---
Author Organization [facility] Address [address] [place] [address] Care Team Providers Care Slag Wheeler Name Role Phone Casey Marroquin Primary Care Provider Sinai Jacobson Unavailable [phone] REASON FOR VISIT Lab results Encounters Encounter Location Date Provider Diagnosis [facility] [address] [place] [address] 05/10/2024 Sinai Jacobson Plan Of Treatment Next Appt Details Provider Name:Sinai Jacobson , 08/15/2024 09:30:00 AM, [address] [place], [address], Progress Notes * Aguilar ESPITIADanielOB: 7 (48 yo M)Acc No.[id number]:05/10/2024 Patient:?Doc ESPITIA :1975???Age:48 Y???Sex:Male Address:[address] [place] [address] [place], [address] * true * Date:? Generated for Brennen faye/Timur/eTransmitting on:?06/11/2024 06:22 PM EDT
--- OUTSIDE RECORDS SUMMARY | 2024-06-11 18:23 | XMS_ITS | Patient Health Record ---
Author Organization [facility] [address] Address [address] [place] [address] Care Team Providers Care Transitional Nurse Name Role Phone LopezCasey fenton Primary Care Provider [phone] Black, Sinai Unavailable [phone] Allergies No Known Allergies Reason For Referral [...] 05/09/2024 Encounters Encounter Location Date Provider Diagnosis [facility] [address] [place] [address] 05/09/2024 Sinai Black Pain in right toe(s) M79.674 ; Onychomycosis B35.1 and Pain in left toe(s) M79.675 [facility] [address] [place] [address] 05/10/2024 Sinai Jacobson Assessments Encounter Date Diagnosis (ICD Code) Assessment Notes Treatment Notes Treatment Clinical Notes Section Notes 05/09/2024 Pain in right toe(s) (ICD-10 - M79.674) 05/09/2024 Onychomycosis (ICD-10 - B35.1) 05/09/2024 Pain in left toe(s) (ICD-10 - M79.675) Plan Of Treatment Pending Test Test Name Order Date *Liver Function Test (LFT) 05/09/2024 Next Appt Details Provider Name:Sinai Jacobson , 08/15/2024 09:30:00 AM, [address] [place] [address], [phone], Insurance Providers Payer Name Payer Address Payer Phone Subscriber Number Group Number Insured Name Patient Relationship to Insured Coverage Start Date Coverage End Date [employer] [address] [place] [address] [id number] Doc Quintanilla Self - patient is the insured Medical (General) History Medical History History ICD Code Anxiety asthma covid-19 Depression Chicken pox Diverticulosis Surgical History Surgery Date(Month/Year) colonoscopy
--- OUTSIDE RECORDS SUMMARY | 2024-06-11 18:24 | XMS_ITS ---
[facility] [place] Address [address] [place] [address] Care Team Providers Care Thermometer Production Worker Name Role Phone Casey Marroquin Primary Care Provider Black, Sinai Unavailable [phone] Allergies No Known Allergies REASON FOR VISIT [...] Diagnosis [facility] [address] [place] [address] 05/09/2024 Sinai Black Pain in right toe(s) [...] Provider Name:Sinai Jacobson , 08/15/2024 09:30:00 AM, [address] [place] [address], [phone], Progress Notes * Aguilar ESPITIADanielOB: 7 (48 yo M)Acc No.[id number]:05/09/2024 Progress Notes Patient:?Doc ESPITIA Provider:?Sinai Jacobson DPM :1975???Age:48 Y???Sex:Male Nirmal e:05/09/2024 Address:[address] [place], [place] [address] Pcp:Casey Marroquin Subjective: * Chief Complaints: * [...] yes. ?Exercise: no. ?Marital status: . ?Occupation: [employer]. ???Drug/Alcohol:?AUDIT-C (Standard)?Did you have a drink [...] Jacobson DPM Date:?2024 Generated for Maynori yunier/Farong/eTransmitting on:?06/11/2024 06:24 PM EDT History and Physical Notes * [...]
== END 2024-06-11 16:13 | disposition home or self-care (01) ==
PROVIDERS: PCP Internal Medicine; Visit Provider Nurse Practitioner Family
DX: K50.10 Crohn's disease of large intestine without complications (principal); K57.30 Diverticulosis of large intestine without perforation or abscess without bleeding; K21.9 Gastro-esophageal reflux disease without esophagitis; K57.90 Diverticulosis of intestine, part unspecified, without perforation or abscess without bleeding; K52.9 Noninfective gastroenteritis and colitis, unspecified
CPT/HCPCS: 99214

== ENCOUNTER → 2024-06-11 15:30 | Outpatient (BNVA) | payer OTHER, SELFPAY | PROVIDERS: PCP Internal Medicine; Visit Provider Nurse Practitioner Family ==

== ENCOUNTER 2024-07-05 10:28 | Outpatient (AMB) | payer OTHER, SELFPAY ==
--- NOTE | 2024-07-05 10:30 | MHC.OFFVIS ---
Vital Signs 07/05/24 10:39 Height 5 ft 4 in Weight 166 lb BMI 28.5 Intake Visit Reasons: OV - left soleus muscle strain, DOI 05/28/24 Intake Note: Doc is a 48 year old male who presents today with a walking with crutches for a follow up of his left soleus muscle strain, DOI 05/28/24. At his visit he was given a tall walking boot with crutches. He was also referred to physical therapy. Patient states he is feeling better. Patient has been going to PT and he is notices improvements. Allergies No Known Allergies Allergy (Verified 07/05/24 10:39) HPI HPI OV - left soleus muscle strain, DOI 05/28/24: Details: Mr. barba is a 48-year-old male who presents to the office today for routine follow-up of a left soleus muscle strain that he sustained on 05/28/2024 while at work. He has been in the boot ambulating with the use of crutches and attending physical therapy. He reports that he is no longer experiencing any pain. [facility] Medical History Overweight with body mass index (BMI) of 28 to 28.9 in adult Depression Pure hypercholesterolemia, unspecified Hyperlipidemia LDL goal <100 Hypertension Diverticulosis GERD (gastroesophageal reflux disease) Borderline hypercholesterolemia Tinea versicolor Male pattern baldness Surgical History History of colonoscopy with polypectomy (04/29/24) [place] teeth extracted Family History Mother No problems noted. Father No problems noted. Maternal Uncle Colon cancer Other Mental health disorder Substance use disorder Social History Housing: Apartment Are you a primary urgent care technician to a significant other at home: No Do you presently have visiting nurse or other home services: No Alcohol intake: former Year quit: 3 y Patient Tobacco Use Status: Never used Tobacco e-Cigarette/Vaping Use: Currently Using Second Hand Smoke Exposure: Yes service: No Current occupational status: employed Current occupational exposures/hazards: No Cognitive needs: No Hearing needs: No Vision needs: No Review of Systems Const All systems reviewed & are unremarkable except as noted in HPI and below Physical Exam Vital Signs: BMI result Body Mass Index 28.5 Extrem Other: Left calf supple and nontender. No pain with calf squeeze. Negative Homans. Achilles tendon is palpable with no defect. Negative Randhawa's. NVI. Assessment & Plan Assessment & Plan (1) Strain of left soleus muscle: Code(s): S86.112A - Strain of other muscle(s) and tendon(s) of posterior muscle group at lower leg level, left leg, initial encounter Category: Medical Plan Mr. barba is a 48-year-old male who presents to the office today for routine follow-up of a left soleus muscle strain that he sustained on 05/28/2024 while at work. He has been in the boot ambulating with the use of crutches and attending physical therapy. He reports that he is no longer experiencing any pain. While the office today I recommended that the patient discontinue the boot and crutches at this time and transition to a supportive locking sneaker. He will attend physical therapy today to obtain instruction on a home exercise program. He was provided with a work note to return back to work full-time regular duty. He will follow up with Orthopedics p.r.n., sooner if needed. Coding Level of Care Code Est Pt Level 3 (61070) Diagnoses Strain of left soleus muscle S86.112A
[2024-07-05 10:39] VITALS: BMI 28.5
--- OUTSIDE RECORDS SUMMARY | 2024-07-05 10:52 | XMS_ITS | Data Portability ---
Author Organization [facility], [address] Address [address] [place] [address] Assessment No assessment recorded. Plan of Treatment Reminders Order Date Submit Date Provider Last Modified By Organization Details Last Modified Time Details Appointments None recorded. Lab rapid SARS CoV 2 Ag, QL IA, respiratory specimen 2022 [email or web address] [place] [address], [address] [place] [address], [phone], 3 11:48:05 Referral None recorded. Procedures None recorded. Surgeries None recorded. Imaging None recorded. Medication Orders None recorded. Patient TargetsNo targets recorded. Patient Instructions Encounter Date Encounter Id Patient Instructions Last Modified By Organization Details Last Modified Time 03/29/2022 [id number] You have been Diagnosed with COVID - [...] this over a decongestant. 3. Saline Nasal [place] 4. Salt Water Gargles. I would be [...] AND HUMAN SERVICES Thank you for visiting [facility] today, please feel free to call our [...] and Address Organization Details Recorded Time Hyperlipidemia 40613905 Active 2022 [facility] 3 11:43:27 Asthma 985787510 Active 2022 [facility] 3 11:43:32 Problem Notes None recorded. Procedures Surgical History Date Name Laterality Status Provider Name and Address Organization Details Recorded Time extraction of wisdom tooth completed BRIANA BALBUENAANJEL Sorto [facility] 03/29/2022 11:44:16 Imaging Results None recorded. [...] Updated DateTime 3 162.56 cm 26.6 kg/m2 73487.8 2 g 0 99 % 99 % 90 /min 18 /min 98.5 [degF] 127 mm[Hg] 82 mm[Hg] BRIANA HOYOS RENEE Sorto [facility] 3 11:42:24 Social History Question Answer Notes LastModified by [employer] Details LastModified Time Tobacco Smoking Status Former Smoker [facility]ANA [facility]ENEE [facility] 03/29/2022 11:44:03 Have You Recently Traveled Abroad? No [email or web address] Information not available 03/29/2022 Sex: Unknown Functional Status Question Answer Note LastModified by [employer] Details LastModified Time Do you use any illicit or recreational drugs? No [email or web address] Information not available 03/29/2022 Do you or have you ever used any other forms of tobacco or nicotine? Yes [email or web address] Information not available 03/29/2022 What is your level of alcohol consumption? None [email or web address] Information not available 03/29/2022 Do you or have you ever used e-cigarettes or vape? Current user of electronic cigarettes [email or web address] Information not available 03/29/2022 Mental Status None recorded. Family History Relationship Description Onset Age of this Age Resolved Age Notes LastModified by Organization Details LastModified Time Father No current problems or disability [email or web address] Not available 03/29 11:43:37 Mother No current problems or disability [email or web address] Not available 03/29 11:43:37 Medical History No medical history recorded. Past Encounters Encounter ID Performer Location Encounter Start Date Encounter Closed Date Diagnosis/Indication Diagnosis SNOMED-CT Code Diagnosis ICD10 Code Diagnosis Note [id number] [address] [place] [address] 04/29/2015 17:30:19 04/29/2015 18:43:52 [id number] [address] [place] [address] 03/21/2015 19:49:48 03/21/2015 20:06:19 [id number] [address] [place] [address] 07/06/2016 14:12:16 07/06/2016 15:18:51 [id number] RENEE MORENO [address] [place] [address] 03/29/2022 11:08:19 03/29/2022 11:59:32 COVID-19 506306909 U07.1 Health Concerns Section Related Observation LastModified by Organization Detai ls LastModified Time None Recorded Concern Status LastModified by Organization Details LastModified Time None Recorded Advance Directives Directive None Recorded Payers Insurance Date Sequence Insurance Name Policy Number Policy Grace Covered Member ID Grace Member ID Guarantor Name 03/29/2022 1 [facility] [id number] Doc Quintanilla [id number] Doc Quintanilla 03/29/2022 1 [employer] (POS) [id number] Doc Quintanilla [id number] Doc Quintanilla Notes Date Note Type Note Provider Name [...] No history of COVID. Vaccinated. RENEE MORENO [address] [place], [address], [place] - [facility] 03/29/2022 11:58:00
--- OUTSIDE RECORDS SUMMARY | 2024-07-05 10:52 | XMS_ITS | Patient Health Record ---
Author Organization [facility] Sasha nunu [place] Address [address] [place] [address] Care Team Providers Care Inside Plant Supervisor Name Role Phone LopezCasey fenton Primary Care Provider Black, Sinai Unavailable [phone] Allergies No Known Allergies Reason For Referral [...] 05/09/2024 Encounters Encounter Location Date Provider Diagnosis [facility] [address] [place] [address] 05/09/2024 Sinai Black Pain in right toe(s) M79.674 ; Onychomycosis B35.1 and Pain in left toe(s) M79.675 [facility] [address] [place] [address] 05/10/2024 Sinai Jacobson [facility] [address] [place] [address] 06/28/2024 Sinai Jacobson Assessments Encounter Date Diagnosis (ICD Code) Assessment Notes Treatment Notes Treatment Clinical Notes Section Notes 05/09/2024 Pain in right toe(s) (ICD-10 - M79.674) 05/09/2024 Onychomycosis (ICD-10 - B35.1) 05/09/2024 Pain in left toe(s) (ICD-10 - M79.675) Plan Of Treatment Pending Test Test Name Order Date *Liver Function Test (LFT) 05/09/2024 Next Appt Details Provider Name:Sinai Jacobson , 08/15/2024 09:30:00 AM, [address] [place] [address], [address], Insurance Providers Payer Name Payer Address Payer Phone Subscriber Number Group Number Insured Name Patient Relationship to Insured Coverage Start Date Coverage End Date Cigna [address] [place] [phone] [id number] Doc Quintanilla Self - patient is the insured Medical (General) History Medical History History ICD Code Anxiety asthma covid-19 Depression Chicken pox Diverticulosis Surgical History Surgery Date(Month/Year) colonoscopy
--- OUTSIDE RECORDS SUMMARY | 2024-07-05 10:52 | XMS_ITS ---
Author Organization [facility] Address [address] [place] [address] Care Team Providers Care Plug Stitcher Name Role Phone Casey Marroquin Primary Care Provider Sinai Jacobson Unavailable [phone] REASON FOR VISIT Lab results Encounters Encounter Location Date Provider Diagnosis [facility] [address] [place] [address] 05/10/2024 Sinai Jacobson Plan Of Treatment Next Appt Details Provider Name:Sinai Jacobson , 08/15/2024 09:30:00 AM, [address] [place], [address], Progress Notes * Aguilar ESPITIADanielOB: 7 (48 yo M)Acc No.[id number]:05/10/2024 Patient:?Doc ESPITIA :1975???Age:48 Y???Sex:Male Address:[address] [place] [address] [place], [address] * true * Date:? Generated for Brennen faye/Timur/eTransmitting on:?07/05/2024 10:52 AM EDT
--- OUTSIDE RECORDS SUMMARY | 2024-07-05 10:53 | XMS_ITS ---
[facility] [place] Address [address] [place] [address] Care Team Providers Care Federal Appellate Law Clerk Name Role Phone Casey Marroquin Primary Care Provider Black, Sinai Unavailable [phone] Allergies No Known Allergies REASON FOR VISIT [...] 0 Interpretation Negative Vital Signs Blood pressure systolic 123 mm Hg 05/10/19 25 Blood pressure diastolic 80 mm Hg 025 Height 5ft4in in 05/09/2024 Weight 170 lbs 05/09/2024 BMI 29.18 kg/m2 05/09/2024 Encounters Encounter Location Date Provider Diagnosis [facility] [address] [place] [address] 05/09/2024 Sinai Black Pain in right toe(s) [...] Provider Name:Sinai Jacobson , 08/15/2024 09:30:00 AM, [address] [place] [address], [address], Progress Notes * Aguilar ESPITIADanielOB: 7 (48 yo M)Acc No.[id number]:05/09/2024 Progress Notes Patient:?Doc ESPITIA Provider:?Sinai Jacobson DPM :1975???Age:48 Y???Sex:Male Nirmal e:05/09/2024 Address:[address] [place], [place] [id number] Pcp:Casey Marroquin Subjective: * Chief Complaints: * [...] yes. ?Exercise: no. ?Marital status: . ?Occupation: [employer]. ???Drug/Alcohol:?AUDIT-C (Standard)?Did you have a drink [...] Jacobson DPM Date:?2024 Generated for Maynori yunier/Adrianeg/eTransmitting on:?07/05/2024 10:52 AM EDT History and Physical Notes * [...]
--- OUTSIDE RECORDS SUMMARY | 2024-07-05 10:53 | XMS_ITS ---
Author Organization [facility] Address [address] [place] [address] Care Team Providers Care Crewman Main Battle Tank Name Role Phone Casey Marroquin Primary Care Provider Sinai Jacobson Unavailable [phone] REASON FOR VISIT Ciclopirox 8% Solution Encounters Encounter Location Date Provider Diagnosis [address] [address] 06/28/2024 Sinai Jacobson Plan Of Treatment Next Appt Details Provider Name:Sinai Jacobson , 08/15/2024 09:30:00 AM, [address] [place], [address], Progress Notes * Aguilar ESPITIADanielOB: 7 (48 yo M)Acc No.[id number]:06/28/2024 Patient:?Doc ESPITIA :1975???Age:48 Y???Sex:Male Address:[address] [place] [address] [facility] [place], [address] * true * Date:? Generated for Printi yunier/Timur/eTransmitting on:?07/05/2024 10:52 AM EDT
== END 2024-07-05 10:51 | disposition home or self-care (01) ==
LOC: HO.HOS 10:28
PROVIDERS: PCP Internal Medicine; Visit Provider Physician Assistant
DX: S86.112A Strain of other muscle(s) and tendon(s) of posterior muscle group at lower leg level, left leg, initial encounter (principal)
CPT/HCPCS: 99213

== ENCOUNTER → 2024-07-05 10:28 | Outpatient (BNVA) | payer OTHER, SELFPAY | PROVIDERS: PCP Internal Medicine; Visit Provider Physician Assistant | DX: S86.112A Strain of other muscle(s) and tendon(s) of posterior muscle group at lower leg level, left leg, initial encounter (principal) | CPT/HCPCS: 99212 ==

== ENCOUNTER 2024-07-18 15:00 | Outpatient (RCR) | payer OTHER, SELFPAY ==
[2024-06-25 15:07] VITALS: BP 131/82; PULSE 77
--- NOTE | 2024-06-25 15:59 | MHC.PT.EP ---
[facility] [place] Office [place] Office [place] Office [address] Conor Chapin [address] [phone] F: [phone] F: [phone] F: [phone] F: [phone] Physical Therapy Plan of Care Date of Evaluation: 06/25/24 Date of Surgery: NA Diagnosis: Strain of other muscles and tendons of posterior muscle group of lower leg level Strain of L soleus muscle Assessment: Doc is a 48 year old male who is referred to PT for strain of L soleus muscle . He strained his calf while getting off a high step about 1 month back. He heard a pop and had immediate onset of pain. His ankle was initially immobilized in cast and then was given tall walking boot with crutches. On PT examination he walked in with crutches and was NWB, had mild TTP at mid calf region- medial aspect, 4/10 with weight bearing in shower, has decreased L ankle ROM, decreased B hip strength, altered posture, balance and gait. He lives with his family and is independent with all ADLs but modifies them. He works in a [employer] house and is currently out of work. He would benefit from skilled PT to address the aforementioned impairments and improve tolerance to functional activities. Frequency and Duration: The patient will be seen 2/week for 8 weeks Short Term Goals: 1. Pt will be able to walk WBAT in a tall walking boot and with crutches in 2 weeks. 2. Pt will have all ankle ROM WNL and pain free in 3 weeks Appointment Scheduler Goals: 1. Pt will demonstrate an increase in muscle strength by 1 grade which will enable him to negotiate stairs without pain in 5 weeks 2. Pt will be able to walk without boot and without AD in 6 weeks 3. Pt will demonstrate ability to perform SLS on L LE for 30 seconds which will enable him to perform all ADLs without difficulty in 7 weeks 4. Pt will be independent with all HEP and return to PLOF in 8 weeks Treatment Plan: Modalities to reduce pain, spasms and effusion. Manual therapy to restore motion and function. Therapeutic exercise to improve strength and flexibility. Neuromuscular re-education for posture and balance. Therapeutic activities to return to functional activities of daily living. Electronically signed by: Nadja Aguiar PT DPT Please sign and return to therapist. Thank you for your referral.
--- NOTE | 2024-07-24 13:43 | MHC.PT.DC ---
[facility] Office [place] Office [place] Office [address] Conor Chapin [address] [facility] [phone] F: [phone] F: [phone] F: [phone] F: [phone] Physical Therapy Discharge Report Diagnosis: Strain of other muscles and tendons of posterior muscle group of lower leg level Strain of L soleus muscle Date of Surgery: NA Date of Evaluation: 06/25/24 Date of Discharge: 07/24/24 Treatments to Date: 8 Cancellations to Date: 0 No Shows to Date: 0 Discharge Status: Achieved Goals Improved Function Independent with HEP Discharge Summary: Doc has completed 8 PT visits and has achieved all goals set for him. He is independent with all HEP and returned to PLOF. He is therefore being d/c from PT today. Doc was in agreement with the plan. Electronically signed by: Nadja Aguiar PT DPT Please sign and return to therapist. Thank you for your referral.
== END 2024-07-24 13:43 | disposition home or self-care (01) ==
LOC: HO.PT 15:00
PROVIDERS: PCP Internal Medicine; Visit Provider Physician Assistant
DX: S86.112D Strain of other muscle(s) and tendon(s) of posterior muscle group at lower leg level, left leg, subsequent encounter (principal)
CPT/HCPCS: 97110; 97116; 97140; 97161; 97530

== ENCOUNTER 2024-08-08 09:05 | Outpatient (AMB) | payer OTHER, SELFPAY ==
--- NOTE | 2024-08-08 09:19 | A.OFFPC_ITS ---
Vital Signs 08/08/24 09:20 Height 5 ft 4 in Weight 167 lb 4 oz BMI 28.7 BP 120/80 Blood Pressure Location Lt brachial Position Sitting Pulse 94 Pulse Source Pulse Oximeter Temp 97.1 F Temp Source Temporal Artery Scan Pulse Oximetry (%) 97 Oxygen Delivery Method Room Air Intake Visit Reasons: pe Intake Note: Patient is here today for a physical. Mass Spectrometry Manager Required: No Retort Operator: Not Required per policy Accompanied by: Self / Same As Patient Allergies No Known Allergies Allergy (Verified 08/08/24 09:20) Tobacco use date assessed: 08/08/24 Dental Screening Dental Screen Date: 05/24/24 [facility] Medical History Overweight with body mass index (BMI) of 28 to 28.9 in adult Depression Pure hypercholesterolemia, unspecified Hyperlipidemia LDL goal <100 Hypertension Diverticulosis GERD (gastroesophageal reflux disease) Borderline hypercholesterolemia Tinea versicolor Male pattern baldness Surgical History History of colonoscopy with polypectomy (04/29/24) [place] teeth extracted Family History Mother No problems noted. Father No problems noted. Maternal Uncle Colon cancer Other Mental health disorder Substance use disorder Social History Housing: Apartment Are you a primary care support representative to a significant other at home: No Do you presently have visiting nurse or other home services: No Alcohol intake: former Year quit: 3 y Patient Tobacco Use Status: Never used Tobacco e-Cigarette/Vaping Use: Currently Using Frequency of e-Cigarette/Vaping Use: Daily Second Hand Smoke Exposure: Yes service: No Current occupational status: employed Current occupational exposures/hazards: No Cognitive needs: No Hearing needs: No Vision needs: No Questionnaire Thrive Questionnaire Date Thrive assessed: 08/01/24 I am a: Patient What is your living situation today?: I have a steady place to live Within the past 12 months, did the food you bought not last and you didn't have the money to get more?: Never true Within the past 12 months, did you worry whether your food would run out before you got money to buy more?: Never true Do you have trouble paying for medicines?: No Do you have trouble getting transportation to medical appointments?: No Do you have trouble paying your heating and electricity bill?: No Do you have trouble taking care of your child, family member or friend?: No Do you have trouble with day-to-day activities such as bathing, preparing meals, shopping, managing finances, etc.?: No Are you currently unemployed and looking for a job?: No Are you interested in more education?: No Please select the resources that you would like help with: None Currently or been in a relationship where the following occur: No concerns reported THRIVE Score: 0 AUDIT C Alcohol Use Questionnaire (AUDIT-C) 1. How often do you have a drink containing alcohol?: Never 3. How often do you have six or more drinks on one occasion?: Never Total Score: 0 THERESA-7 AMB Questionnaire THERESA-7 Date THERESA - 7 assessed: 05/24/24 Feeling nervous, anxious, or on edge: 1 = Several days Not being able to stop or control worryin = Several days Worrying too much about different things: 1 = Several days Trouble relaxin = Several days Being so restless that it is hard to sit still: 1 = Several days Becoming easily annoyed or irritable: 1 = Several days Feeling afraid as if something awful might happen: 0 = Not at all Total THERESA-7 score (0-4 normal; 5-9 mild; 10-14 moderate; 15-21 severe): 6 Source: Developed by Drs. Michele Nj, Sandra Olson, Jarrett Rutherford and colleagues, with an educational [email or web address] from [employer]. Physical exam (Primary Care) Vital Signs: Last Vital Signs Temp 97.1 F 08/08/24 09:20 Pulse 94 08/08/24 09:20 BP 120/80 08/08/24 09:20 Pulse Ox 97 08/08/24 09:20 Oxygen Delivery Method Room Air 08/08/24 09:20 BMI result Body Mass Index 28.7 Tobacco/Smoking Status: Tobacco use Status Tobacco use date assessed 08/08/24 08/08/24 09:30 Patient Tobacco Use Status Never used Tobacco 08/08/24 09:30 Tobacco use type 06/11/24 08:37 e-Cigarette/Vaping Use Currently Using 08/08/24 09:30 Thrive Assessment: Date of Thrive Assessment Date Thrive assessed 08/01/24 08/08/24 09:30 Currently or been in a relationship where the following occur: No concerns reported Coding Level of Care Code Est Pt Level 4 (03743) Est Pt Prev Care 40-64y(69907) Diagnoses Annual physical exam Z00.00 Hypertension I10 Hyperlipidemia LDL goal <100 E78.5 Atypical chest pain R07.89 Segmental colitis associated with diverticulosis K50.10; K57.30 Assessment & Plan Assessment & Plan (1) Annual physical exam: Code(s): Z00.00 - Encounter for general adult medical examination without abnormal findings Category: Medical Plan: Blood work reviewed with patient. Patient is compliant with his colorectal screening. (2) Hypertension: Code(s): I10 - Essential (primary) hypertension Category: Medical Plan: Blood pressure is in range. (3) Hyperlipidemia LDL goal <100: Code(s): E78.5 - Hyperlipidemia, unspecified Category: Medical Plan: I have suggested he stop the statins for a short duration. If his symptoms of muscle discomfort persists then we can assume that it is not statin related and the medication can be restarted. (4) Atypical chest pain: Code(s): R07.89 - Other chest pain Plan: A stress test has been ordered. (5) Segmental colitis associated with diverticulosis: Code(s): K50.10 - Crohn's disease of large intestine without complications; K57.30 - Diverticulosis of large intestine without perforation or abscess without bleeding Category: Medical Plan: Continues to have discomfort in his colon. Patient has an upcoming appointment with GI on August 20. Plan History of Present Illness - The patient is a 48-year-old male presenting for a physical examination and evaluation of ongoing health concerns. - Colitis: Diagnosed following a colonoscopy due to symptoms of blood in stool, currently managed with medication, and symptoms have improved with no current bleeding. - Diverticulitis: Contributes to abdominal discomfort. - Chest pain: Intermittent and not associated with heartburn, occurring frequently and concerning to the patient. - Gastroesophageal reflux disease (GERD): Symptoms improving with medication. - Hyperlipidemia: On medication but considering stopping due to feeling unwell. Social History - Employment: The patient is currently employed but reports feeling unwell while working. Review of Systems - Gastrointestinal: Reports improvement in colitis symptoms with no current bleeding. Reports abdominal discomfort related to diverticulitis. - Cardiovascular: Reports intermittent chest pain not associated with heartburn. - Musculoskeletal: Reports feeling unable to move well after work and experiencing leg discomfort. - General: Reports feeling unwell and shaky at times. Physical Exam General: Cooperative and healthy appearing Nutritional Appearance: Well nourished Orientation/consciousness: Patient oriented x3 Limitations: No limitations Head: Normal to inspection General: Appearance normal, both eyes and all related structures Neck: Normal visual inspection Chest: Normal palpation of entire chest wall Respiratory: N ormal respiratory effort Neurology: Patient oriented x3, but reports feeling shaky and not good. Results - Labs: Previous blood work was reported as normal. - Procedures: Colonoscopy revealed severe colitis. Plan 1. Colitis - Continue current medication regimen and follow up with gastroenterology as scheduled. 2. Diverticulitis - Monitor symptoms and manage with dietary modifications as needed. 3. Chest Pain - Schedule a stress test to evaluate cardiac function. 4. Gastroesophageal Reflux Disease (Gerd) - Continue current medication and monitor symptoms. 5. Hyperlipidemia - Consider stopping statin medication to assess if symptoms improve, with plans to adjust treatment if necessary. Discussion Notes I discussed with the patient the plan to schedule a stress test to evaluate his chest pain and the possibility of stopping his statin medication to see if it alleviates his symptoms. We also reviewed the importance of continuing his current medication for colitis and following up with gastroenterology. Patient Instructions - Schedule and complete the stress test as advised. - Continue taking your current medications for colitis and GERD. - Consider stopping the statin medication and monitor for any changes in symptoms. - Follow up with your roller die cutting machine operator as scheduled. Orders: Orders CA stress test Today E78.5 - Hyperlipidemia, unspecified, I10 - Essential (prim emily) hypertension, R07.89 - Other chest pain, Z00.00 - Encounter for general adult medical examination without abnormal findings
[2024-08-08 09:20] VITALS: BP 120/80; PULSE 94; TEMP 36.2; O2SAT 97; BMI 28.7
--- OUTSIDE RECORDS SUMMARY | 2024-08-08 09:42 | XMS_ITS | Data Portability ---
Author Organization [facility] [address] Address [address] [place] [address] Assessment No assessment recorded. Plan of Treatment Reminders Order Date Submit Date Provider Last Modified By Organization Details Last Modified Time Details Appointments None recorded. Lab rapid SARS CoV 2 Ag, QL IA, respiratory specimen [address]22 [email or web address] [place] [address], [address] [place] [address], [phone], 3 11:48:05 Referral None recorded. Procedures None recorded. Surgeries None recorded. Imaging None recorded. Medication Orders None recorded. Patient TargetsNo targets recorded. Patient Instructions Encounter Date Encounter Id Patient Instructions Last Modified By Organization Details Last Modified Time 03/29/2022 [id number] You have been Diagnosed with COVID - [...] this over a decongestant. 3. Saline Nasal [place] 4. Salt Water Gargles. I would be [...] AND HUMAN SERVICES Thank you for visiting [facility] today, please feel free to call our [...] and Address Organization Details Recorded Time Hyperlipidemia 22256433 Active 2022 BRIANA graham RENEE Noreen [facility] 3 11:43:27 Asthma 161627631 Active 2022 BRIANA SOHA [facility] 3 11:43:32 Problem Notes None recorded. Procedures Surgical History Date Name Laterality Status Provider Name and Address Organization Details Recorded Time extraction of wisdom tooth completed BRIANA BALBUENAANJEL Sorto [facility] 03/29/2022 11:44:16 Imaging Results None recorded. [...] height Body mass index (BMI) Body weight Oxygen saturation Oxygen saturation in Arterial blood by Pulse oximetry Heart rate Respiratory rate Body temperature Systolic blood pressure Diastolic blood pressure Provider Name and Address Organization Details Last Updated DateTime 3 162.56 cm 26.6 kg/m2 41938.8 2 g 99 % 99 % 90 /min 18 /min 98.5 [degF] 127 mm[Hg] 82 mm[Hg] [facility] 3 11:42:24 Social History Question Answer Notes LastModified by [employer] Details LastModified Time Tobacco Smoking Status Former Smoker BRIANA BALBUENARENEE [facility] 03/29/2022 11:44:03 Have You Recently Traveled Abroad? No [email or web address] Information not available 03/29/2022 Sex: Unknown Functional Status Question Answer Note LastModified by [employer] Details LastModified Time Do you use any illicit or recreational drugs? No [email or web address] Information not available 03/29/2022 Do you or have you ever used any other forms of tobacco or nicotine? Yes [email or web address] Information not available 03/29/2022 What is your level of alcohol consumption? None [email or web address] Information not available 03/29/2022 Do you or have you ever used e-cigarettes or vape? Current user of electronic cigarettes [email or web address] Information not available 03/29/2022 Mental Status None recorded. Family History Relationship Description Onset Age of this Age Resolved Age Notes LastModified by Organization Details LastModified Time Father No current problems or disability [email or web address] Not available 03/29 11:43:37 Mother No current problems or disability [email or web address] Not available 03/29 11:43:37 Medical History No medical history recorded. Past Encounters Encounter ID Performer Location Encounter Start Date Encounter Closed Date Diagnosis/Indication Diagnosis SNOMED-CT Code Diagnosis ICD10 Code Diagnosis Note [id number] [address] [place] [address] 04/29/2015 17:30:19 04/29/2015 18:43:52 [id number] [address] [place] [address] 03/21/2015 19:49:48 03/21/2015 20:06:19 [id number] [address] [place] [address] 07/06/2016 14:12:16 07/06/2016 15:18:51 [id number] RENEE MORENO [address] [place] [address] 03/29/2022 11:08:19 03/29/2022 11:59:32 COVID-19 842976722 U07.1 Health Concerns Section Related Observation LastModified by Organization Detai ls LastModified Time None Recorded Concern Status LastModified by Organization Details LastModified Time None Recorded Advance Directives Directive None Recorded Payers Insurance Date Sequence Insurance Name Policy Number Policy Grace Covered Member ID Grace Member ID Guarantor Name 03/29/2022 1 [id number] [facility] [id number] Docgustavo Houserter 03/29/2022 1 [employer] (POS) [id number] [facility] [id number] [facility] Notes Date Note Type Note Provider Name [...] history of COVID. Vaccinated. RENEE MORENO [address] [place], [address], [place] - [facility] 03/29/2022 11:58:00
== END 2024-08-08 09:52 | disposition home or self-care (01) ==
LOC: HO.HMCH 09:06
PROVIDERS: PCP Internal Medicine; Visit Provider Internal Medicine
DX: Z00.00 Encounter for general adult medical examination without abnormal findings (principal); I10 Essential (primary) hypertension; K50.10 Crohn's disease of large intestine without complications; E78.5 Hyperlipidemia, unspecified; R07.89 Other chest pain; K57.30 Diverticulosis of large intestine without perforation or abscess without bleeding

== ENCOUNTER → 2024-08-08 09:05 | Outpatient (BNVA) | payer OTHER, SELFPAY | PROVIDERS: PCP Internal Medicine; Visit Provider Internal Medicine ==

== ENCOUNTER → 2024-08-19 09:58 | Outpatient (REF) | payer OTHER, SELFPAY ==
--- NOTE | 2024-08-19 10:00 | CA_ITS ---
Acquisition Time: 2024-08-19 10:19:04 Total Exercise Time: 00:09:14 Test Indications: CP Medications: SEE EMAR Protocol: TOMMY Max HR: 153 BPM 88% of Pred: 173 BPM Max BP: 142/82 mmHG Max Work Load: 10.4 METS Exercise stress test with exercise 9 mins 14 secs of Tommy Protocol, achieving 86% MPHR, with reports of mild SOB, no chest pain, without any arrythmias, with normotensive response to exercise. Without any EKG changes meeting criteria for ischemia. In recovery, breathing returned to baseline. Test reviewed with Dr. Andres. Referred By: Casey Marroquin Electronically Signed By: Gianni De La Cruz
--- OUTSIDE RECORDS SUMMARY | 2024-08-19 10:34 | XMS_ITS | Data Portability ---
Author Organization [facility], [address] Address [address] [place] [address] Assessment No assessment recorded. Plan of Treatment Reminders Order Date Submit Date Provider Last Modified By Organization Details Last Modified Time Details Appointments None recorded. Lab rapid SARS CoV 2 Ag, QL IA, respiratory specimen [id number] [place] [address], [address] [place] [address], [id number], 11:48:05 Referral None recorded. Procedures None recorded. Surgeries None recorded. Imaging None recorded. Medication Orders None recorded. Patient TargetsNo targets recorded. Patient Instructions Encounter Date Encounter Id Patient Instructions Last Modified By Organization Details Last Modified Time 03/29/2022 [id number] You have been Diagnosed with COVID - [...] this over a decongestant. 3. Saline Nasal [place] 4. Salt Water Gargles. I would be [...] AND HUMAN SERVICES Thank you for visiting [facility] today, please feel free to call our [...] and Address Organization Details Recorded Time Hyperlipidemia 82106919 Active 2022 BRIANA graham [facility] 11:43:27 Asthma 268512609 Active 2022 BRIANA graham [facility] 11:43:32 Problem Notes None recorded. Procedures Surgical History Date Name Laterality Status Provider Name and Address Organization Details Recorded Time extraction of wisdom tooth completed BRIANA HOYOS [facility] 03/29/2022 11:44:16 Imaging Results [...] Updated DateTime 3 162.56 cm 26.6 kg/m2 87028.8 2 g 99 % 99 % 90 /min 18 /min 98.5 [degF] 127 mm[Hg] 82 mm[Hg] [facility] 3 11:42:24 Social History Question Answer Notes LastModified by Organizat ion Details LastModified Time Tobacco Smoking Status Former Smoker BRIANA graham [facility] 03/29/2022 11:44:03 Have You Recently Traveled Abroad? No [email or web address] Information not available 03/29/2022 Sex: Unknown Functional Status Question Answer Note LastModified by [employer] Details LastModified Time Do you use any illicit or recreational drugs? No [email or web address] Information not available 03/29/2022 Do you or have you ever used any other forms of tobacco or nicotine? Yes [email or web address] Information not available 03/29/2022 What is your level of alcohol consumption? None [email or web address] Information not available 03/29/2022 Do you or have you ever used e-cigarettes or vape? Current user of electronic cigarettes [email or web address] Information not available 03/29/2022 Mental Status None recorded. Family History Relationship Description Onset Age of this Age Resolved Age Notes LastModified by Organization Details LastModified Time Father No current problems or disability [email or web address] Not available 03/29 11:43:37 Mother No current problems or disability Not available 03/29 11:43:37 Medical History No medical history recorded. Past Encounters Encounter ID Performer Location Encounter Start Date Encounter Closed Date Diagnosis/Indication Diagnosis SNOMED-CT Code Diagnosis ICD10 Code Diagnosis Note [id number] [address] [place] [address] 04/29/2015 17:30:19 04/29/2015 18:43:52 [id number] [address] [place] [address] 03/21/2015 19:49:48 03/21/2015 20:06:19 [id number] [address] [place] [address] 07/06/2016 14:12:16 07/06/2016 15:18:51 [id number] [facility] M[facility] [address] [place] [address] 03/29/2022 11:08:19 03/29/2022 11:59:32 COVID-19 [id number] U07.1 Health Concerns Section Related Observation LastModified by Organization Detai ls LastModified Time None Recorded Concern Status LastModified by Organization Details LastModified Time None Recorded Advance Directives Directive None Recorded Payers Insurance Date Sequence Insurance Name Policy Number Policy Grace Covered Member ID Grace Member ID Guarantor Name 03/29/2022 1 [employer] [id number] Doc Quintanilla [id number] Doc Quintanilla 03/29/2022 1 [employer] (POS) [id number] Doc Quintanilla [id number] Doc Quintanilla Notes Date Note Type [...] COVID. Vaccinated. RENEE MORENO [address] [place], [address], [place] - [facility] 03/29/2022 11:58:00
== END ==
LOC: HO.CARD 09:58
PROVIDERS: PCP Internal Medicine; Visit Provider Internal Medicine
DX: R07.9 Chest pain, unspecified (principal); I10 Essential (primary) hypertension; E78.5 Hyperlipidemia, unspecified
CPT/HCPCS: 93017

== ENCOUNTER → 2024-08-19 10:00 | Outpatient (BNV) | payer OTHER, SELFPAY | PROVIDERS: PCP Internal Medicine | DX: R07.9 Chest pain, unspecified (principal); R06.02 Shortness of breath | CPT/HCPCS: 93016; 93018 ==

== ENCOUNTER 2024-09-24 09:27 | Outpatient (AMB) | payer OTHER, SELFPAY ==
--- NOTE | 2024-09-24 09:30 | MHC.OFFVIS ---
Vital Signs 09/24/24 09:34 Height 5 ft 4 in Weight 162 lb BMI 27.8 BP 132/92 H Blood Pressure Location Rt brachial Position Sitting Pulse 78 Pulse Source Pulse Oximeter Pulse Oximetry (%) 99 Oxygen Delivery Method Room Air Intake Visit Reasons: 3m Intake Note: ESTABLISHED PATIENT for GERD + colitis mgmt. Chief Complaint; C.O. bloating persistence. Pt denies any additional sx or concerns at this time and reports general / overall improvement from last visit. Vehicle Calibration Engineer Required: No Accompanied by: Self / Same As Patient Allergies No Known Allergies Allergy (Verified 09/24/24 09:30) Medication List - Last Reconciled 09/24/24 by Betsy Chase, COMPUTER PROGRAMMER ANALYST- atorvastatin 10 mg PO BEDTIME ciclopirox 8% 1 appl topical DAILY dicyclomine 10 mg PO BID PRN ketorolac 10 mg PO Q6H PRN lisinopril 10 mg PO DAILY mesalamine (Lialda) 2.4 grams (2 x 1.2 gram) PO DAILY methocarbamol 1,500 mg (2 x 750 mg) PO Q8H PRN pantoprazole 40 mg PO DAILY HPI HPI 3m: Details: LAST VISIT Segmental colitis associated with diverticulosis GERD (gastroesophageal reflux disease) Diverticulosis Postprandial diarrhea Plan Patient will continue mesalamine for now. Continue avoiding dietary triggers. Try fiber and making sure that he is moving his bowels without any issues. Increase fluid intake and activity to promote better bowel motility. Patient admits that he is feeling better dicyclomine works for pain. Stressed the importance of increasing fluid and activity to promote better bowel. Trying to avoid patient being backed up and constipated and dicyclomine can contribute to that. Patient will follow-up in 3 months, sooner on as needed basis. He is agreeable to this plan and verbalizes understanding of instructions. He was given the opportunity to ask questions and all questions answered. ? TODAY'S VISIT: Patient is here today for follow-up. Patient reports that since last visit he has been doing significantly better. He is taking mesalamine, denies any postprandial loose stools. However does admit that he continues to be bloated. Patient denies melena, hematochezia, unintentional weight loss or ribbon like stools. Patient is taking dicyclomine as needed for abdominal cramping. Unable to take Citrucel due to abdominal cramping. He is moving his bowels better now. Patient is taking pantoprazole every morning. Symptoms of acid reflux are suppressed. Patient denies dyspepsia, dysphagia or odynophagia. REPLACED BY [facility] Medical History Overweight with body mass index (BMI) of 28 to 28.9 in adult Depression Pure hypercholesterolemia, unspecified Hyperlipidemia LDL goal <100 Hypertension Diverticulosis GERD (gastroesophageal reflux disease) Borderline hypercholesterolemia Tinea versicolor Male pattern baldness Surgical History History of colonoscopy with polypectomy (04/29/24) [place] teeth extracted Family History Mother No problems noted. Father No problems noted. Maternal Uncle Colon cancer Other Mental health disorder Substance use disorder Social History Housing: Apartment Are you a primary animal care attendant to a significant other at home: No Do you presently have visiting nurse or other home services: No Alcohol intake: former Year quit: 3 y Patient Tobacco Use Status: Never used Tobacco e-Cigarette/Vaping Use: Currently Using Second Hand Smoke Exposure: Yes service: No Current occupational status: employed Current occupational exposures/hazards: No Cognitive needs: No Hearing needs: No Vision needs: No Review of Systems Const Denies weight gain and Denies weight loss ENT Reports no additional complaints, Denies dysphagia and Denies odynophagia Card Reports no additional complaints Resp Reports no additional complaints GI Denies abdominal pain, Denies belching, Denies melena, Denies bloating, Denies change in bowel habits, Reports GI cramping (Occasional), Denies dysphagia, Denies excessive flatus, Denies dyspepsia, Denies heartburn, Denies diarrhea, Denies loose stools, Denies nausea, Denies odynophagia and Denies vomiting Reports no additional complaints Musc Reports no additional complaints Neuro Reports no additional complaints Psych Reports no additional complaints Endo Reports no additional complaints Physical Exam Vital Signs: Last Vital Signs Pulse 78 09/24/24 09:34 BP 132/92 H 09/24/24 09:34 Pulse Ox 99 09/24/24 09:34 Oxygen Delivery Method Room Air 09/24/24 09:34 BMI result Body Mass Index 27.8 Const General: healthy appearing, no acute distress and well developed Nutritional Appearance: well nourished Orientation/consciousness: patient oriented x3 Resp Effort & Inspection: normal respiratory effort, able to speak in complete sentences, no tracheal deviation and symmetric chest movement Auscultation: clear to auscultation bilaterally Cardio Rate: regular rate GI Inspection: Yes normal to inspection and No distended Palpation (GI): Soft to palpation, not firm, nontender and No hepatosplenomegaly present Auscultation: normal bowel sounds General: Yes no CVA tenderness Back/Spine/Pelvis Back: no CVA tenderness Skin General skin exam: elasticity normal, turgor normal and dry skin Neuro General: patient oriented x3 Psych Appearance: grossly normal Mental Status: mental status grossly normal Assessment & Plan Assessment & Plan (1) Segmental colitis associated with diverticulosis: Code(s): K50.10 - Crohn's disease of large intestine without complications; K57.30 - Diverticulosis of large intestine without perforation or abscess without bleeding Category: Medical (2) GERD (gastroesophageal reflux disease): Code(s): K21.9 - Gastro-esophageal reflux disease without esophagitis Category: Medical Qualifiers: Esophagitis presence: esophagitis presence not specified Qualified Code(s): K21.9 - Gastro-esophageal reflux disease without esophagitis (3) Diverticulosis: Code(s): K57.90 - Diverticulosis of intestine, part unspecified, without perforation or abscess without bleeding Category: Medical (4) Postprandial diarrhea: Code(s): K52.9 - Noninfective gastroenteritis and colitis, unspecified (5) Postprandial abdominal bloating: Code(s): R14.0 - Abdominal distension (gaseous) Plan Patient will continue pantoprazole. Avoid dietary triggers and late night snacking. Staying upright for minimum 3 hours after meals discussed with patient. Patient will try to take fiber with pre and probiotics. Will recheck fecal calprotectin. Will check pancreatic elastase as patient is reporting postprandial abdominal bloating. Patient can start taking [id number] enzymes to help with symptoms for now. Patient will follow-up in our office in 6 months, sooner on as needed basis. He is agreeable to this plan and verbalizes understanding of instructions. He was given the opportunity to ask questions and all questions answered. Thank you for allowing me to participate in his care Orders: Orders Calprotectin, Fecal Today R15.9 - Full incontinence of feces Pancreatic Elastase-1 Today R10.9 - Unspecified abdominal pain Coding Level of Care Code Est Pt Level 4 (23404) Complex EM visit Add On G2211 Diagnoses Segmental colitis associated with diverticulosis K50.10; K57.30 Gastroesophageal reflux disease, unspecified whether esophagitis present K21.9 Esophagitis presence: esophagitis presence not specified Diverticulosis K57.90 Postprandial diarrhea K52.9 Postprandial abdominal bloating R14.0 Time Spent (min) 40 Comment 25 minutes spent with patient and additional 15 minutes spent reviewing his records
[2024-09-24 09:34] VITALS: BP 132/92; PULSE 78; O2SAT 99; BMI 27.8
--- OUTSIDE RECORDS SUMMARY | 2024-09-24 09:52 | XMS_ITS | Patient Health Record ---
Author Organization [facility] Address [address] [place] [address] Care Team Providers Care Production Assembler Name Role Phone Casey Marroquin Primary Care Provider [phone] Black, Sinai Unavailable [phone] Allergies No Known Allergies Reason For Referral No Information Medications Medication SIG (Take, Route, Frequency, Duration) Notes Start Date End Date Status Pantoprazole Sodium 40 MG as directed Intravenous Active Ciclopirox 8 % 1 application thin f ilm topically to nails Externally Once a day; Duration: 30 days Active metroNIDAZOLE 500 MG 1 tablet Orally Thr ee times a day Not-Taking Ciprofloxacin HCl 500 MG 1 tablet Orally every 12 hrs Not-Taking Atorvastatin Calcium 10 MG 1 tablet Orally Once a day Not-Taking Immunizations Vaccine Route Administration Date Status Comme nts Influenza Unknown 08/15/2024 Refused Social History Tobacco Use: Social History Observation [...] Signs Blood pressure diastolic 80 mm Hg 08/15/2024 Height 5ft4in in 08/15/2024 Blood pressure systolic 125 mm Hg 08/15/2024 Weight 170 lbs 08/15/2024 BMI 29.18 kg/m2 08/15/2024 Encounters Encounter Location Date Provider Diagnosis [facility] [address] [place] [address] 05/09/2024 Sinai Black Pain in right toe(s) M79.674 ; Onychomycosis B35.1 and Pain in left toe(s) M79.[address] [address] 08/15/2024 Sinai Black Pain in right toe(s) M79.674 ; Onychomycosis B35.1 ; Pain in left toe(s) M79.675 and Ingrown nail L60.[address] [address] 05/10/2024 Sinai Black [address] [address] 06/28/2024 Sinai Black Assessments Encounter Date Diagnosis (ICD Code) Assessment Notes Treatment Notes Treatment Clinical Notes Section Notes 05/09/2024 Pain in right toe(s) (ICD-10 - M79.674) 05/09/2024 Onychomycosis (ICD-10 - B35.1) 08/15/2024 Pain in right toe(s) (ICD-10 - M79.674) 08/15/2024 Onychomycosis (ICD-10 - B35.1) 05/09/2024 Pain in left toe(s) (ICD-10 - M79.675) 08/15/2024 Pain in left toe(s) (ICD-10 - M79.675) 08/15/2024 Ingrown nail (ICD-10 - L60.0) Plan Of Treatment Pending Test Test Name Order Date *Liver Function Test (LFT) 05/09/2024 Next Appt Details Provider Name:Sinai Jacobson , 11/18/2024 09:30:00 AM, [address] [place] [address], [phone], Insurance Providers Payer Name Payer Address Payer Phone Subscriber Number Group Number Insured Name Patient Relationship to Insured Coverage Start Date Coverage End Date Cigna [address] [place] [phone] [id number] Doc Quintanilla Self - patient is the insured 5 Medical (General) History Medical History History ICD Code Anxiety asthma covid-19 Depression Chicken pox Diverticulosis Surgical History Surgery Date(Month/Year) colonoscopy
--- OUTSIDE RECORDS SUMMARY | 2024-09-24 09:53 | XMS_ITS ---
Author Name [facility] Organization Unknown Care Team Organization Name Specialty Phone Email Start Date End [facility] NO PCP Primary Care 07/23/2024
== END 2024-09-24 09:52 | disposition home or self-care (01) ==
LOC: HO.HGI 09:28
PROVIDERS: PCP Internal Medicine; Visit Provider Nurse Practitioner Family
DX: K50.10 Crohn's disease of large intestine without complications (principal); K57.30 Diverticulosis of large intestine without perforation or abscess without bleeding; K21.9 Gastro-esophageal reflux disease without esophagitis; K57.90 Diverticulosis of intestine, part unspecified, without perforation or abscess without bleeding; K52.9 Noninfective gastroenteritis and colitis, unspecified; R14.0 Abdominal distension (gaseous)
CPT/HCPCS: 99214

== ENCOUNTER 2024-09-24 09:27 | Outpatient (REF) | payer OTHER, SELFPAY ==
[2024-10-01 18:12] LABS: Calprotectin, Fecal 345 mcg/g
== END 2024-09-24 09:28 | disposition home or self-care (01) ==
LOC: HO.LNP 09:27
PROVIDERS: PCP Internal Medicine; Visit Provider Nurse Practitioner Family
DX: K50.10 Crohn's disease of large intestine without complications (principal); K21.9 Gastro-esophageal reflux disease without esophagitis; K57.30 Diverticulosis of large intestine without perforation or abscess without bleeding; K52.9 Noninfective gastroenteritis and colitis, unspecified; R14.0 Abdominal distension (gaseous); R10.9 Unspecified abdominal pain; R15.9 Full incontinence of feces
CPT/HCPCS: 82656; 83993

== ENCOUNTER 2025-01-15 07:54 | Outpatient (AMB) | payer OTHER, SELFPAY ==
--- OUTSIDE RECORDS SUMMARY | 2024-11-14 09:00 | XMS_ITS ---
Author Organization [facility] Address [address] [place] [address] Care Team Providers Care Mule Packer Name Role Phone Casey Marroquin Primary Care Provider Sinai Jacobson [phone] Encounters Encounter Location Date Provider Diagnosis [facility] [address] [place] [address] 11/14/2024 Sinai Jacobson Plan Of Treatment Next Appt Details Provider Name:Sinai Jacobson , 03/05/2025 09:15:00 AM, [address] [facility], [place], [address], Progress Notes * Eyad ESPITIAOB: 7 (49 yo M)Acc No.[id number]:11/14/2024 Progress Notes Patient: Doc PENALOZA Provider: Eliazar Jacobson DPM :1975 A ge:49 Y S ex:Male Date:11/14/2024 Address:[address] [place] Pcp:Casey Marroquin Subjective: * Chief Complaints: * * Medical History: Objective: * Vitals: Assessment: Plan: * Treatment: * Images: * The named appointment provid er may or may not be the originator of this progress note, and it is not deemed complete until electronically signed by the appointment provider. Sign off status: Pending * Provider: Eliazar Jacobson DPM Date: 0 11/14/2024 Generated for Brennen faye/Timur/Osvaldo on: 1 03/17/2024 08:01 AM EST
--- OUTSIDE RECORDS SUMMARY | 2024-11-18 04:30 | XMS_ITS ---
Author Organization [facility] Address [address] [place] [address] Care Team Providers Care Hot Mix Operator Name Role Phone Casey Marroquin Primary Care Provider Sinai Jacobson Unavailable [phone] Castillo Encounters Encounter Location Date Provider Diagnosis [facility] [address] [place] [address] 11/18/2024 Sinai Jacobson Plan Of Treatment Next Appt Details Provider Name:Sinai Jacobson , 03/05/2025 09:15:00 AM, [address] [place] [address], [phone], Progress Notes * Eyad ESPITIAOB: 7 (49 yo M)Acc No.[id number]:11/18/2024 Progress Note Patient: Doc PENALOZA Provider: Eliazar Jacobson DPM :1975 A ge:49 Y S ex:Male Date:11/18/2024 Address:[address] [place] Pcp:Casey Marroquin Subjective: * Chief Complaints: * [address] Castillo. * Medical History: Objective: * Vitals: Assessment: Plan: * Treatment: * Images: * The named appointment provid er may or may not be the originator of this progress note, and it is not deemed complete until electronically signed by the appointment provider. Sign off status: Pending * Provider: Eliazar Jacobson DPM Date: 0 11/18/2024 Generated for Brennen faye/Timur/Osvaldo on: 03/17/2024 08:04 AM EST
--- NOTE | 2025-01-15 07:59 | MHC.OFFVIS ---
Vital Signs 01/15/25 08:04 Height 5 ft 4 in Weight 168 lb BMI 28.8 BP 138/94 H Blood Pressure Location Rt brachial Position Sitting Pulse 86 Pulse Source Pulse Oximeter Pulse Oximetry (%) 98 Oxygen Delivery Method Room Air Intake Visit Reasons: f/u Intake Note: ESTABLISHED PATIENT for GERD + colitis mgmt. Chief Complaint; C/O persistent GERD sx including foreign body sensation + dysphagia. Pt confirms he is taking his Rx as instructed but is not noticing as significant relief as he had hoped. Senior Producer Required: No Accompanied by: Self / Same As Patient Allergies No Known Allergies Allergy (Verified 01/15/25 08:00) HPI HPI f/u: Details: LAST VISIT: Segmental colitis associated with diverticulosis GERD (gastroesophageal reflux disease) Diverticulosis Postprandial diarrhea Postprandial abdominal bloating Plan Patient will continue pantoprazole. Avoid dietary triggers and late night snacking. Staying upright for minimum 3 hours after meals discussed with patient. Patient will try to take fiber with pre and probiotics. Will recheck fecal calprotectin. Will check pancreatic elastase as patient is reporting postprandial abdominal bloating. Patient can start taking fbhb-tku-[id number] enzymes to help with symptoms for now. Patient will follow-up in our office in 6 months, sooner on as needed basis. He is agreeable to this plan and verbalizes understanding of instructions. He was given the opportunity to ask questions and all questions answered. ? Thank you for allowing me to participate in his care Orders Calprotectin, Fecal Today R15.9 Pancreatic Elastase-1 Today R10.9 TODAY'S VISIT: Patient is here today for follow-up. Patient reports that he continues to have epigastric pain and occasional dysphagia with solid food. Trouble swallowing solid food feels like food is getting stuck in the middle of his chest. He reports that pantoprazole has not been working for him. He takes it every morning before breakfast, continues to have acid reflux and epigastric burning postprandially. Patient denies dyspepsia or odynophagia. Reports that he is moving his bowels better now. No longer has diarrhea. Denies any abdominal bloating postprandially. Taking mesalamine daily. Denies melena, hematochezia, mucus in his stools. Patient denies any other GI concerning symptoms. [facility] Medical History Overweight with body mass index (BMI) of 28 to 28.9 in adult Depression Pure hypercholesterolemia, unspecified Hyperlipidemia LDL goal <100 Hypertension Diverticulosis GERD (gastroesophageal reflux disease) Borderline hypercholesterolemia Tinea versicolor Male pattern baldness Surgical History History of colonoscopy with polypectomy (04/29/24) [place] teeth extracted Family History Mother No problems noted. Father No problems noted. Maternal Uncle Colon cancer Other Mental health disorder Substance use disorder Social History Housing: Apartment Are you a primary child care center administrator to a significant other at home: No Do you presently have visiting nurse or other home services: No Alcohol intake: former Year quit: 3 y Patient Tobacco Use Status: Never used Tobacco e-Cigarette/Vaping Use: Currently Using Second Hand Smoke Exposure: Yes service: No Current occupational status: employed Current occupational exposures/hazards: No Cognitive needs: No Hearing needs: No Vision needs: No Review of Systems Const Denies weight gain and Denies weight loss ENT Reports no additional complaints, Denies dysphagia and Denies odynophagia Card Reports no additional complaints Resp Reports no additional complaints GI Denies abdominal pain, Denies belching, Denies melena, Denies bloating, Denies change in bowel habits, Reports GI cramping (Occasional), Denies dysphagia, Denies excessive flatus, Denies dyspepsia, Reports heartburn, Denies diarrhea, Denies loose stools, Denies nausea, Denies odynophagia and Denies vomiting Reports no additional complaints Musc Reports no additional complaints Neuro Reports no additional complaints Psych Reports no additional complaints Endo Reports no additional complaints Physical Exam Const General: healthy appearing, no acute distress and well developed Nutritional Appearance: well nourished Orientation/consciousness: patient oriented x3 Resp Effort & Inspection: normal respiratory effort, able to speak in complete sentences, no tracheal deviation and symmetric chest movement Auscultation: clear to auscultation bilaterally Cardio Rate: regular rate GI Inspection: Yes normal to inspection and No distended Palpation (GI): Soft to palpation, not firm, nontender and No hepatosplenomegaly present Auscultation: normal bowel sounds General: Yes no CVA tenderness Back/Spine/Pelvis Back: no CVA tenderness Skin General skin exam: elasticity normal, turgor normal and dry skin Neuro General: patient oriented x3 Psych Appearance: grossly normal Mental Status: mental status grossly normal Assessment & Plan Assessment & Plan (1) GERD (gastroesophageal reflux disease): Code(s): K21.9 - Gastro-esophageal reflux disease without esophagitis Category: Medical Qualifiers: Esophagitis presence: esophagitis presence not specified Qualified Code(s): K21.9 - Gastro-esophageal reflux disease without esophagitis (2) Segmental colitis associated with diverticulosis: Code(s): K50.10 - Crohn's disease of large intestine without complications; K57.30 - Diverticulosis of large intestine without perforation or abscess without bleeding Category: Medical (3) Diverticulosis: Code(s): K57.90 - Diverticulosis of intestine, part unspecified, without perforation or abscess without bleeding Category: Medical Plan Will change PPI to Nexium. Patient will be sent for upper endoscopy for possible dilation. He reports severe epigastric burning and trouble swallowing. He has been taking pantoprazole for the past few months and has not seen much of improvement. Patient was encouraged to avoid dietary triggers and late night snacking. Staying upright for minimum 3 hours after meals discussed with patient. Continue taking mesalamine. Continue low FODMAP diet and avoid dietary triggers. Follow-up after endoscopy. Patient will call us if he will have any other GI concerning symptoms. Patient is agreeable to this plan and verbalizes understanding of instructions. He was given the opportunity to ask questions and all questions answered Thank you for allowing me to participate in his care Orders: Referrals GI Procedure Notification K21.9 - Gastro-esophageal reflux disease without esophagitis, R13.10 - Dysphagia, unspecified Medications: New esomeprazole magnesium (Nexium) 40 mg PO DAILY 30 caps 3RF K21.9 - Gastro-esophageal reflux disease without esophagitis Discontinued pantoprazole Discontinued Reason: Doctor's Order 40 mg PO DAILY 90 tabs 1RF Coding Level of Care Code Est Pt Level 4 (57333) Complex visit Add On G2211 Diagnoses Gastroesophageal reflux disease, unspecified whether esophagitis present K21.9 Esophagitis presence: esophagitis presence not specified Segmental colitis associated with diverticulosis K50.10; K57.30 Diverticulosis K57.90 Time Spent (min) 35 Comment 25 minutes spent with patient and additional 10 minutes spent reviewing his records
[2025-01-15 08:04] VITALS: BP 138/94; PULSE 86; O2SAT 98; BMI 28.8
--- OUTSIDE RECORDS SUMMARY | 2025-01-15 08:04 | XMS_ITS | Patient Health Record ---
Author Organization [facility] Address [address] [facility] [place] [address] Care Team Providers Care Turbine Inspector Name Role Phone Lopez, Kartik Primary Care Provider Black, Sinai Unavailable [phone] Allergies No Known Allergies Reason For Referral No Information Medications Medication SIG (Take, Route, Frequency, Duration) Notes Start Date End Date Status Cephalexin 500 MG 1 capsule Orally 3 times a day; Duration: 10 days Active metroNIDAZOLE 500 MG 1 tablet Orally Thr ee times a day Not-Taking Pantoprazole Sodium 40 MG as directed Intravenous Active Ciclopirox 8 % 1 application thin f ilm topically to nails Externally Once a day; Duration: 30 days Active Ciprofloxacin HCl 500 MG 1 tablet [...] Notes Are you an other tobacco user? No Tobacco Control (Standard) Question Answer Notes Tobacco use: Nonsmoker Additional Findings: Tobacco non-user Current no nsmoker AUDIT-C (Standard) Question Answer Notes Did you have a drink containing alcohol in the p ast year? No Points 0 Interpretation Negative Problems Problem Type SNOMED Code ICD Code Onset Dates Problem Status W/U Status Risk Notes Problem Cellulitis of right toe (0399860014) Cellulitis of right toe (L03.031) Active confirmed Problem Ulcer of toe of right foot (disorder) (90512138050473 101) Skin ulcer of toe of right foot, limited to breakdown of skin (L97.511) Active confirmed Vital Signs Blood pressure diastolic 80 mm Hg 11/12/2024 Height 5ft 4in in 11/12/2024 Blood pressure systolic 123 mm Hg 11/12/2024 Weight 172 lbs 11/12/2024 BMI 29.52 kg/m2 11/12/2024 Procedures Procedure Date Ordered Date Performed [place] e [address]- Debride <25 sq cm 11/12/2024 N/A Encounters Encounter Location Date Provider Diagnosis [address] [address] 05/09/2024 Sinai Black Pain in right toe(s) M79.674 ; Onychomycosis B35.1 and Pain in left toe(s) M79.[address] [address] 08/15/2024 Sinai Black Pain in right toe(s) M79.674 ; Onychomycosis B35.1 ; Pain in left toe(s) M79.675 and Ingrown nail L60.[address] [address] 10/25/2024 Sinai Black Pain in right toe(s) M79.674 ; Cellulitis of right toe L03.031 and Ingrown nail L60.[address] [address] 11/12/2024 Sinai Black Cellulitis of right toe L03.031 ; Onychomycosis B35.1 ; Pain in right toe(s) M79.674 ; Pain in left toe(s) M79.675 and Skin ulcer of toe of right foot, limited to breakdown of skin L97.[address] [address] 05/10/2024 Sinai Black [address] [address] 06/28/2024 Sinai Black [address] [address] 10/22/2024 Sinai Black Assessments Encounter Date Diagnosis (ICD Code) Assessment Notes Treatment Notes Treatment Clinical Notes Section Notes 05/09/2024 Pain in right toe(s) (ICD-10 - M79.674) 05/09/2024 Onychomycosis (ICD-10 - B35.1) 08/15/2024 Pain in right toe(s) (ICD-10 - M79.674) 08/15/2024 Onychomycosis (ICD-10 - B35.1) 10/25/2024 Cellulitis of right toe (ICD-10 - L03.031) 10/25/2024 Pain in right toe(s) (ICD-10 - M79.674) 11/12/2024 Cellulitis of right toe (ICD-10 - L03.031) 11/12/2024 Onychomycosis (ICD-10 - B35.1) 05/09/2024 Pain in left toe(s) (ICD-10 - M79.675) 11/12/2024 Pain in right toe(s) (ICD-10 - M79.674) 10/25/2024 Ingrown nail (ICD-10 - L60.0) Patient Educated with: WOUND CARE INSTRUCTIONS.p df (WOUND CARE INSTRUCTIONS.p df) 08/15/2024 Pain in left toe(s) (ICD-10 - M79.675) 08/15/2024 Ingrown nail (ICD-10 - L60.0) 11/12/2024 Pain in left toe(s) (ICD-10 - M79.675) 11/12/2024 Skin ulcer of toe of right foot, limited to breakdown of skin (ICD-10 - L97.511) Patient Educated with: WOUND CARE INSTRUCTIONS.p df (WOUND CARE INSTRUCTIONS.p df) 11/12/2024 Other Plan Of Treatment Pending Test Test Name Order Date *Liver Function Test (LFT) 05/09/2024 40596- Debride <25 sq cm 11/12/2024 Next Appt Details Provider Name:Sinai Jacobson , 03/05/2025 09:15:00 AM, [address] [facility], [place], [address], Insurance Providers Payer Name Payer Address Payer Phone Subscriber Number Group Number Insured Name Patient Relationship to Insured Coverage Start Date Coverage End Date [employer] [address] [place] [phone] [id number] Doc Quintanilla Self - patient is the insured 5 Medical (General) History Medical History History ICD Code Anxiety asthma covid-19 Depression Chicken pox Diverticulosis Surgical History Surgery Date(Month/Year) colonoscopy
== END 2025-01-15 08:33 | disposition home or self-care (01) ==
LOC: HO.HGI 07:55
PROVIDERS: PCP Internal Medicine; Visit Provider Nurse Practitioner Family
DX: K21.9 Gastro-esophageal reflux disease without esophagitis (principal); K50.10 Crohn's disease of large intestine without complications; K57.30 Diverticulosis of large intestine without perforation or abscess without bleeding; K57.90 Diverticulosis of intestine, part unspecified, without perforation or abscess without bleeding
CPT/HCPCS: 99214